=== PATIENT | male | born 1975 | race Caucasian/White ===

== ENCOUNTER 2023-02-01 12:30 | Outpatient (RCR) | payer OTHER, SELFPAY | END 2023-02-01 13:41 | disposition home or self-care (01) | PROVIDERS: PCP Internal Medicine; Visit Provider Internal Medicine | DX: M25.541 Pain in joints of right hand (principal); Z51.89 Encounter for other specified aftercare | CPT/HCPCS: 97035; 97140; 97165 ==

== ENCOUNTER 2023-02-28 10:55 | Outpatient (CLI) | payer OTHER, SELFPAY | END 2023-02-28 10:56 | disposition home or self-care (01) | LOC: RAD 10:56 | PROVIDERS: PCP Internal Medicine; Visit Provider Chiropractor | DX: R06.00 Dyspnea, unspecified (principal); I07.1 Rheumatic tricuspid insufficiency | CPT/HCPCS: 93306 ==

== ENCOUNTER 2023-11-18 09:58 | Outpatient (CLI) | payer OTHER, SELFPAY ==
--- OUTSIDE RECORDS SUMMARY | 2023-11-18 10:17 | XMS_ITS | Encounter Summary ---
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 This section includes the names of all active insurance providers for the patient. Insurance Provider Type of Coverage Plan Name Start of Policy Coverage End of Policy Coverage Group Number Member ID Insurance Provider's Telephone Number Policy Morgan's Name Patient's Relationship to Policy Morgan [employer] [place] POINT OF SERVICE FOREI GN SERVI CE BENE Mar 29, 2019 [id number] [phone] Jonh SANCHEZ PATIENT [employer] ([employer]) PRESCRIPT ION FOREI GN SERVI CE Mar 29, 2019 [id number] Jonh SANCHEZ PATIENT Selected Encounter This section includes the information on record at [place] for the Encounter. Date/Time Encounter Type Encounter Description Reason Provider Source Dec 24, 2022 02:30 PM PT EVAL LOW COMPLEX 20 MIN PHYSICAL THERAPY ICD-10-CM M54.50 Low back pain, unspecified RYER,MANI ER P IHE Encounter Template Text not used by [place] Assessments - Encounter Diagnoses This section includes the primary and secondary diagnoses documented for the Encounter. Date/Time Primary/Secondary Diagnosis Diagnosis Name Provider Source Dec 24, 2022 04:23 PM PRIMARY Low back pain, unspecified RYER,MANI ER P [facility] Plan of Treatment: Future Appointments (+ 6 months) and Future Tests (+/- 45 days) The Plan of Treatment section includes future care activities for the patient from all [facility] treatment[facility]. This section includes future appointments and future orders which are active, pending or scheduled. Future Appointments This section includes appointments that were scheduled to occur 6 months from the date of the Encounter, up to a maximum of 20 appointments. The data comes from all [facility]. Appointment Date/Time Appointment Type Appointme nt Facility Name Jan 04, 2023 08:30 AM AMBULATORY - NONE [facility] Jan 04, 2023 09:00 AM AMBULATORY - REHAB MEDICIN E [facility] Jan 04, 2023 11:15 AM AMBULATORY - NONE [facility] Jan 10, 2023 07:00 AM AMBULATORY - NONE [facility] Jan 11, 2023 09:00 AM AMBULATORY - REHAB MEDICIN E [facility] Jan 14, 2023 08:00 AM AMBULATORY - MEDICINE [facility] Feb 01, 2023 02:00 PM [facility] NONE [facility] Feb 05, 2023 08:45 AM AMBULATORY - SURGERY [facility] Feb 15, 2023 02:00 PM AMBULATORY - REHAB MEDICIN E [facility] Mar 01, 2023 09:30 AM AMBULATORY - REHAB MEDICIN E [facility] Mar 21, 2023 08:45 AM AMBULATORY - SURGERY [facility] Apr 01, 2023 01:00 PM AMBULATORY - MEDICINE [facility] Apr 08, 2023 10:30 AM AMBULATORY - REHAB MEDICIN [facility] May 17, 2023 03:00 PM AMBULATORY - REHAB MEDICIN E [facility] May 21, 2023 09:30 AM AMBULATORY - MEDICINE [facility] May 21, 2023 11:00 AM AMBULATORY - NONE [facility] Jun 04, 2023 11:00 AM AMBULATORY - SURGERY [facility] Active, Pending, and Scheduled Orders This section includes a listing of several types of active, pending, and scheduled orders, including clinic medications orders, diagnostic test orders, procedure orders and consult orders; where the start date of the order is 45 days before the date of the Encounter or 45 days after the date of theEncounter. The data comes from all [facility]. Test Date/Time Test Type Test Details Facility Name Dec 24, 2022 12:00 AM Laboratory - Chemistry Order COVID-19 SCREENING PANEL (CEPHEID) NASOPHARYNGEAL SWAB Nasopharyngeal SP ONCE [facility] Lab Results: +/- 30 days of the encounter This section includes the Chemistry and Hematology Lab Results on record with [place] for the patient. Radiology Reports and Pathology Reports are provided separately, in subsequent sections. Lab Results This section contains the Chemistry/Hematology Results that were resulted 30 days before or 30 daysafter the date of the Encounter. Date/Time Source Result Type Result - Unit Interpretation Reference Range Comment Jan 04, 2023 01:44 PM [facility] OCCULT BLOOD FIT X1 SCREEN Specimen Type: FECES No comment entered. Ordering Provider: ARISTIDES TRAN Report Released Date/Time: Dec 24, 2022 09:55 AM Reporting Lab: [facility] [phone] Performing Lab: [facility] [id number] OCCULT BLOOD (FIT) #1 OF 1 Negative Negative Dec 24, 2022 11:30 AM [facility] URINALYSIS Specimen Type: URINE No comment entered. Ordering Provider: ARISTIDES TRAN Report Released Date/Time: Dec 24, 2022 09:18 AM Reporting Lab: [facility] [id number] Performing Lab: [facility] [phone] URINE COLOR LIGHT-YELLOW SPECIFIC GRAVITY 1.019 1.003-1.03 5 URINE BILIRUBIN NEGATIVE NEGATIVE URINE KETONES NEGATIVE NEGATIVE URINE GLUCOSE NEGATIVE mg/dL S ee_Commen t URINE PROTEIN NEGATIVE mg/dL S ee_Commen t URINE PH 5.5 5.0-8.0 URINE WBC/HPF 1 /[HPF] 0-7 URINE BACTERIA NONE SEEN URINE RBC/HPF 1 /[HPF] 0-3 APPEARANCE CLEAR SQUAMOUS EPITHELIAL NONE SEEN /[HPF] URINE BLOOD 1+ NEGATIVE URINE NITRITE NEGATIVE NEGATIVE LEUKOCYTE ESTERASE NEGATIVE NEGATIVE Dec 24, 2022 11:30 AM [facility] HEAVY METAL PANEL, RANDOM URINE Specimen Type: URINE Comment: Results are below reportable range for this analyte, which is 10 mcg/L. Reference Range: Nonexposed Adult: < or = 35 mcg/g creatinine Biological Exposure Index (end of shift/work week): < or = 50 mcg/g creatinine This test was developed and its analytical performance characteristics have been determined by [facility] [place] [place]. It has not been cleared or approved by the U.S. Food and Drug Administration. This assay has been validated pursuant to the CLIA regulations and is used for clinical purposes. Results are below reportable range for this analyte, which is 10 mcg/L. Reference Range: Nonexposed Adult: <10 mcg/g creatinine This test was developed and its analytical performance characteristics have been determined by [facility] [place] [place]. It has not been cleared or approved by the U.S. Food and Drug Administration. This assay has been validated pursuant to the CLIA regulations and is used for clinical purposes. Results are below reportable range for this analyte, which is 4 mcg/L. Reference Range: Nonexposed Adults: < or = 4 mcg/g creatinine Biological Exposure Index (preshift): < or = 35 mcg/g creatinine This test was developed and its analytical performance characteristics have been determined by [facility] [place], [place]. It has not been cleared or approved by the U.S. Food and Drug Administration. This assay has been validated pursuant to the CLIA regulations and is used for clinical purposes. Test Performed by [facility], [facility], [address] [place] [address] Manuel Dacosta M.D., Ph.D., Director of Laboratories , CLIA [id number] Ordering Provider: ARISTIDES TRAN Report Released Date/Time: Dec 24, 2022 10:09 AM Reporting Lab: [facility] [phone] Performing Lab: [address] .CREAT,URINE 121 mg/dL 20-320 .ARSENIC, UR RAN None Detected .LEAD, UR RAN None Detected .MERCURY, UR RAN None Detected Dec 24, 2022 11:00 AM [facility] COMPREHENSIVE METABOLIC PANEL+MG Specimen Type: PLASMA No comment entered. Ordering Provider: ARISTIDES TRAN Report Released Date/Time: Dec 24, 2022 09:18 AM Reporting Lab: [facility] [phone] Performing Lab: [facility] [phone] CREATININE 1.0 mg/dL 0.7-1.2 UREA NITROGEN 16 mg/dL 8-26 GLUCOSE 93 mg/dL 70-100 SODIUM 141 mmol/L 136-145 POTASSIUM 4.5 mmol/L 3.5-5.1 CHLORIDE 107 mmol/L 98-107 CO2 29 mmol/L 22-29 CALCIUM 9.5 mg/dL 8.4-10.2 PROTEIN,TOTAL 7.7 g/dL 6.0-8.3 ALBUMIN 4.3 g/dL 3.5-5.2 BILIRUBIN, TOTAL 1.0 mg/dL 0.2-1.2 MAGNESIUM 2.2 mg/dL 1.6-2.6 ANION GAP 5 mmol/L 5-15 ALKALINE PHOSPHATASE 68 U/L 40-150 ALT/SGPT 35 U/L <55 AST/SGOT 23 U/L <34 .CREAT EGFR(CKD-EPI) >90 >60 Dec 24, 2022 11:00 AM [facility] CBC & DIFF Specimen Type: BLOOD Comment: Automated Differential Performed Ordering Provider: ARISTIDES TRAN Report Released Date/Time: Dec 24, 2022 09:18 AM Reporting Lab: [facility] [phone] Performing Lab: [facility] [phone] WBC 6.39 10*3/uL 4.0-11.0 RBC 5.21 10*6/uL 4.6-6.2 HGB 17.1 g/dL 13.5-17.9 HCT 48.6 41-54 MCV 93.3 fL 80-100 MCH 32.8 pg 27-33 MCHC 35.2 g/dL 32.0-37.5 PLT 241 10*3/uL 150-400 MPV 10.4 fL 7.4-10.4 NEUT 59.0 40.0-80.0 LYMPHS 31.8 15.0-45.0 MONO 6.4 2.0-12.0 EOSINO 1.9 0.0-6.0 BASO 0.6 0.0-2.0 RDW 12.2 11.5-14.5 ABS LYMPH 2.03 10*3/uL 1.0-4.0 ABS MONO 0.41 10*3/uL 0.1-1.0 ABS NEUT 3.77 10*3/uL 2.0-7.7 ABS EOS 0.12 10*3/uL 0-0.5 ABS BASO 0.04 10*3/uL 0-0.2 IG(META,MYELO, PRO) 0.3 ABS IMMATURE GRAN 0.02 10*3/uL 0-0.1 Dec 24, 2022 11:00 AM [facility] TSH W/REFLEX TO FREE T4 Specimen Type: PLASMA No comment entered. Ordering Provider: ARISTIDES TRAN Report Released Date/Time: Dec 24, 2022 09:18 AM Reporting Lab: [facility] [phone] Performing Lab: [place] [phone] TSH 1.45 u[IU]/mL 0.35-4.94 Dec 24, 2022 11:00 AM [facility] LIPID PANEL,NON-FASTING Specimen Type: PLASMA No comment entered. Ordering Provider: ARISTIDES TRAN Report Released Date/Time: Dec 24, 2022 09:18 AM Reporting Lab: [facility] [phone] Performing Lab: [facility] [phone] CHOLESTEROL 140 mg/dL <199 .HDL 36 mg/dL L >40 LDL CALCULATION 82 mg/dL <99 VLDL CALCULATION 22 mg/dL <29 NON HDL CHOLESTEROL 104 mg/dL <129 TRIG(NON FASTING) 112 mg/dL <149 Dec 24, 2022 11:00 AM [facility] HEMOGLOBIN A1C Specimen Type: BLOOD Comment: Values obtained from A1C measurements can vary. For typical A1C assays, a reported value of 7.0 could actually be between 6.7 and 7.3 if measured by a reference method. A reported value of 9.0 could actually be between 8.7 and 9.3. Ref: http://www.[email or web address] org/CAPdata.asp Ordering Provider: ARISTIDES TRAN Report Released Date/Time: Dec 24, 2022 09:18 AM Reporting Lab: [facility] [phone] Performing Lab: [facility] [phone] HEMOGLOBIN A1C 5.0 4.0-6.0 Dec 24, 2022 11:00 AM [facility] PSA Specimen Type: SERUM No comment entered. Ordering Provider: ARISTIDES TRAN Report Released Date/Time: Dec 24, 2022 09:29 AM Reporting Lab: [facility] [id number] Performing Lab: [facility] [phone] PSA 4.85 ng/mL H <4.00 Dec 24, 2022 11:00 AM [facility] ANTI-HEP C(EIA) Specimen Type: SERUM No comment entered. Ordering Provider: ARISTIDES TRAN Report Released Date/Time: Dec 24, 2022 09:55 AM Reporting Lab: [facility] [id number] Performing Lab: [facility] [phone] ANTI-HEP C(EIA) NEGATIVE NEGATIVE Vital Signs: All taken on the encounter date This section contains inpatient and outpatient Vital Signs collected on the date of the Encounter. Date/Time Temperature Pulse Blood Pressure Respiratory Rate SP02 Pain Height Weight Body Mass Index Source Dec 24, 2022 09:09 AM 146/92 mm[Hg] [facility] Dec 24, 2022 08:54 AM 97.5 F 81 /min 142/91 mm[Hg] 16 /min 99 % 2 73 in 266.9 lb 35 [facility] Social History: Smoking Status (Most current) and Tobacco Use (All prior to encounter date) This section includes the most current, and the historical, smoking and tobacco- related health factors from the [place] facility where the Encounter took place. Current Smoking Status This section includes the most current smoking, or tobacco-related health factor, from the [place] facility where the Encounter took place. Date/Time Current Smoking Status Comment Facil ity Dec 24, 2022 09:00 AM [facility]-TOBACCO FORMER USER [facility] Tobacco Use History This section includes a history of the smoking, or tobacco-related health factors, that were collected on or before the date of the Encounter. The data comes from the [place] facility where the Encounter took place. Date/Time Smoking Status/Tobacco Use Comment F acility Dec 24, 2022 09:00 AM [place]-TOBACCO QUIT 15 YRS OR MORE [facility] Radiology Reports: +/- 30 days of the encounter Radiology Reports For cases when an order for radiology services may have been completed prior to the date of the Encounter, the report list includes the Radiology Reports that were completed up to 30 days before dateof the Encounter. For cases when an order for radiology services may have been completed after the date of the Encounter, the report list also includes the Radiology Reports that were completed up to30 days after date of the Encounter. The data comes from all [place] treatment facilities. Date/Time Radiology Report Provider Source Jan 04, 2023 11:[address] (C) CHEST (P): CARINA SANCHEZ [id number] -1975 M Exm Date: JAN 04, 2023@11:10 Req Phys: MARCGUILLERMOJONATHAN Bray Loc: [facility] PACT INDIGO PD WH 4D (Req' Img Loc: CT IMAGING Service: Unknown (Case [id number] COMPLETE) CT (C) CHEST W/O CONTRAST (CT Detailed) CPT:89909 Reason for Study: Post Deployment Dyspnea on exertion/Multiple Airborne Hazard Exp Clinical History: HRCT- Post Deployment Dyspnea on exertion/Multiple Airborne Hazard Exposures IS NOT under investigation for COVID-19 or is COVID-19 negative Defer to radiologist for final CT protocol. Responsible provider name and phone number to notify for critical findings if other than user placing the order and pager listed below: User placing orders pager: [phone] LAST 3: No data available for: CREATININE .CREAT EGFR(CKD-EPI) ESTIMATED GFR(eGFR) Allergies: ([place] only) Patient has answered NKA Report Status: Verified Date Reported: JAN 04, 2023 Date Verified: JAN 04, 2023 Medical Office Assistant E-Sig:/ES/PERFECTO REDDING MD Report: CT chest without contrast (high resolution) 01/04/2023 History: Post deployment dyspnea on exertion/multiple airborne hazard exposures. Comparison: None Technique: CT of the chest without contrast including supine inspiratory, supine expiratory, and prone inspiratory acquisitions per high resolution interstitial lung disease protocol. Axial and coronal reconstructions were obtained and reviewed. Dose: Total DLP 676 mGy*cm Findings: Bilateral radha-fissural nodules, largest along the right minor fissure measuring 4 mm (series 4, image 160), compatible with benign pulmonary lymph nodes. 2 mm solid nodule left lower lobe adjacent to the left hemidiaphragm with linear extension to the pleura, compatible with a benign intrapulmonary lymph node. No further follow-up is indicated of intrapulmonary lymph nodes. No suspicious pulmonary nodule. Lungs are otherwise clear. No findings for interstitial lung disease. No mosaic attenuation. No bronchiectasis, bronchial wall thickening or mucous plugging. Minimal patchy air trapping present bilaterally on expiratory phase acquisition. Thyroid is unremarkable. Normal heart size. No pericardial or pleural effusion. No suspicious lymphadenopathy in the chest. Hepatic steatosis. Slight degenerative changes in the spine. No suspicious bone lesion. Minimal gynecomastia, left greater than right. Impression: 1. Minimal bilateral air trapping on expiratory phase acquisition as can be seen with small airways disease/asthma. No other pulmonary parenchymal abnormality to explain the patient's symptoms. 2. Hepatic steatosis. Primary Interpreting Staff: PERFECTO REDDING MD, STAFF RADIOLOGIST (Medical Office Assistant) /NRPERFECTO SINGLETARY [facility] Jan 04, 2023 11:[address] SINUSES (P): CARINA SANCHEZ [id number] -1975 M Exm Date: JAN 04, 2023@11:09 Req Phys: ARISTIDES TRAN Loc: [facility] PACT INDIGO PD WH 4D (Req' Img Loc: CT IMAGING Service: Unknown (Case [id number] COMPLETE) CT MAXILLOFACIAL W/O CONTRAST (CT Detailed) CPT:04460 Reason for Study: Chronic Nasal Obstruction Clinical History: Post Deployment Chronic Nasal Obstruction/Multiple Airborne Hazard Exposures [place] IS NOT under investigation for COVID-19 or is COVID-19 negative Defer to radiologist for final CT protocol. Responsible provider name and phone number to notify for critical findings if other than user placing the order and pager listed below: User placing orders pager: [phone] LAST 3: No data available for: CREATININE .CREAT EGFR(CKD-EPI) ESTIMATED GFR(eGFR) Allergies: ([place] only) Patient has answered NKA Report Status: Verified Date Reported: JAN 04, 2023 Date Verified: JAN 04, 2023 Medical Office Assistant E-Sig:/ES/DIEGO BUSBY MD Report: CT SINUSES WITHOUT CONTRAST 01/04/2023 11:09 AM INDICATION: Chronic nasal obstruction. Airborne hazards. TECHNIQUE: Thin slice axial acquisition with sagittal and coronal reformats. CONTRAST: None. COMPARISON: None. DOSE: DLP 181 mGy*cm FINDINGS: FRONTAL: Hypoplastic. Clear. ETHMOID: Clear. SPHENOID: Clear. MAXILLARY: Clear. OMU'S: Clear. NASAL CAVITY: Septum is essentially midline. No nasal cavity mass lesion. OTHER: Mastoid air cells are clear. No significant ancillary finding. Impression: 1. Paranasal sinuses are clear on this study. Primary Interpreting Staff: DIEGO BUSBY MD, RADIOLOGIST (Medical Office Assistant) /ILYA RESENDIZ [facility] Jan 04, 2023 08:28 AM HAND RIGHT 3 VIEWS OR MORE: CARINA SANCHEZ Sonu [id number] -1975 M Exm Date: JAN 04, 2023@08:28 Req Phys: ARISTIDES TRAN A Pat Loc: [facility] PACT INDIGO PD WH 4D (Req' Img Loc: MAIN X-RAY Service: Unknown (Case [id number] COMPLETE) HAND RIGHT 3 VIEWS OR MORE (RAD Detailed) CPT:41945 Proc Modifiers : RIGHT Reason for Study: Right hand 3rd finger pain/trauma Clinical History: IS NOT under investigation for COVID-19 or is COVID-19 negative Right hand 3rd finger pain/trauma Responsible provider name and phone number to notify for critical findings if other than user placing the order and pager listed below: User placing orders pager: [phone] LAST CREATININE 1.0 (12/24/22) Report Status: Verified Date Reported: JAN 04, 2023 Date Verified: JAN 04, 2023 Medical Office Assistant E-Sig:/ES/JUAN PIERRE MD Report: PROCEDURE: HAND RIGHT 3 VIEWS OR MORE INDICATION: Trauma. COMPARISON: None. FINDINGS: 3 views of the right hand demonstrate normal mineralization and alignment. No fracture or dislocation. No suspicious bony sclerosis or periosteal reaction. No radiopaque foreign body. Impression: No acute osseous abnormality. Primary Interpreting Staff: JUAN PIERRE MD, STAFF RADIOLOGIST (Medical Office Assistant) /[facility] JUAN PIERRE [facility] Dec 24, 2022 10:46 AM CHEST 2 VIEWS PA AND LAT: DANIELCARINA Ascencio [id number] -1975 M Exm Date: DEC 24, 2022@10:46 Req Phys: ARISTIDES TRAN Pat Loc: [facility] PACT INDIGO PD WH 4D (Req' Img Loc: MAIN X-RAY Service: Unknown (Case [id number] COMPLETE) CHEST 2 VIEWS PA AND LAT (RAD Detailed) CPT:47783 Reason for Study: Post Deployment Dyspnea on exertion/Multiple Airborne Hazard Exp Clinical History: IS NOT under investigation for COVID-19 or is COVID-19 negative Post Deployment Dyspnea on exertion/Multiple Airborne Hazard Exposures Responsible provider name and phone number to notify for critical findings if other than user placing the order and pager listed below: User placing orders pager: [phone] LAST CREATININE____ Report Status: Verified Date Reported: DEC 24, 2022 Date Verified: DEC 24, 2022 Medical Office Assistant E-Sig:/WILLIAM/JUAN PIERRE MD Report: CHEST, 2 VIEW INDICATION: Dyspnea on exertion. COMPARISON: None. FINDINGS: PA and lateral views of the chest demonstrate adequate inflation of the lungs. No focal consolidation, pneumothorax or effusion. Cardiomediastinal silhouette is within normal limits. There are no acute osseous findings. Impression: No acute cardiopulmonary findings. Primary Interpreting Staff: JUAN PIERRE MD, STAFF RADIOLOGIST (Medical Office Assistant) /JUAN CANTU [facility] Encounter Notes: All associated encounter notes This section contains the clinical notes associated to the Encounter. Date/Time Encounter Note(s) Provider Source Dec 27, 2022 09:05 AM ADDENDUM: LOCAL TITLE: Addendum STANDARD TITLE: ADDENDUM DATE OF NOTE: DEC 27, 2022@09:05:37 ENTRY DATE: DEC 27, 2022@09:05:37 AUTHOR: DARRELL NETTLES EXP COSIGNER: URGENCY: STATUS: COMPLETED Director Of Physician Practices called and spoke to vet. He would like to get xray done 01/04 at 0830, will tell [facility]. /william/ DARRELL NETTLES RN RN, BSN Signed: 12/27/2022 09:05 Receipt Acknowledged By: 12/27/2022 09:37 /key LOBO ARMATURE WINDER REPAIR === --- Original Document --- 12/24/22 PT-EVALUATION NOTE: PT tx: 20 minutes evaluation, 10 minutes manual therapy, 10 minutes therapeutic exercise, 5 minutes self-care PT dx: Low back and knee pain Evaluation Date: Dec # of VISITS: 1 # of CX/NS: 0 Preferred name: Carina SUBJECTIVE: Relevant PMH/personal factors impacting rehab: Multiple environmental exposures, migraines, hypertension. Chief Concern: Pt is a 47yo MALE who presents to PT for low back pain, knee pain. Lots of stairs with recent move to [place]. R knee has become painful. Low back is just generally sore and achy. 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 Low back pain tends to remain around the belt line area. Primarily at the right knee which is painful and is over the lateral patella. Pain: Location/Description: Right lateral patella, beltline Low back Intensity: 2-3/10 low back, can spike up somewhat with right knee depending on activity Aggravating Factors: For right knee kneeling, stairs. For low back lifting or twisting activities Relieving Factors: Rest, changing positions Previous intervention: Distant L partial meniscectomy. Chiropractic which was helpful. Social History/Health Habits: Work is more mainly sitting. 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 Red Flags: No personal history of cancer. Denies any UE or LE progressive weakness, unexplained weight loss, loss of bowel/bladder control, fevers, chills, infections. [place] Screening due: No Patient's Goal: Improve low back and knee. _ RELEVANT IMAGING: None _ OBJECTIVE: Verbal permission obtained before all palpation OBSERVATION: Pleasant demeanor. VITALS: Elevated but acceptable at earlier appointment. RANGE OF MOTION: Standing Lumbar AROM: Flexion: Reaches to proximal rosario Extension: 50% of expected Sidebend: 25% of expected left, 75% of expected right Rotation: 25% of expected left, 75% of expected right (WNL B s/p tx) Quality of Motion: Hypomobile PALPATION: No superficial lumbar tenderness to palpation. Does have some lateral patellar tenderness to palpation SEGMENTAL MOBILITY: Diffuse hypomobility, most focal on right side SPECIAL TESTS: Neurodynamics Straight Leg Raise: Negative Hip screen ROM: Grossly WNL bilateral knees and hips SHANT: Negative bilaterally Desire's test: Negative Patellar grind test: Positive right Squat: Normal form but increased pain right side 6 inch step up: Normal form but increased pain right side _ PT INTERVENTIONS: risks/benefits reviewed and verbal consent obtained for interventions Manual Therapy: -Left lumbar rotation mobilization progressing through grades with manipulation then performed to left and right sides, cavitations noted *Verbal consent given to all manual therapy and manipulation performed. Ther ex: Access Code: [email or web address] URL: [email or web address] Date: 12/24/2022 Prepared by: Diego Workman Exercises - Supine Double Knee to Chest - 3 x daily - 7 x weekly - 2 sets - 10-20 reps - 3 hold - Supine Lower Trunk Rotation - 3 x daily - 7 x weekly - 2 sets - 12 reps - 3 hold - Seated Child's Pose with Table - 3 x daily - 7 x weekly - 3 sets - 12 reps - 3-5 hold Education on HEP (sets, reps, frequency and appropriate response/progression for exercise) Self Care: - Education on joint protection strategies, activity selection. - Education on PT diagnosis, prognosis, expectations of treatment. Response to Treatment: Excellent response to lumbar AROM, reported pain _ GOALS: 1. Pt will be I in HEP for self-management of low back and knee pain in 8-10 weeks 2. Pt will improve PROMIS 6b score by 5 points in order to demonstrate a meaningful reduction in LBP and associated disability in 8 weeks. 3. Patient will demonstrate a single-leg squat to 60 degrees at the knee without apparent movement pattern or increase in symptoms in order to improve his ability to negotiate stairs more easily in 8 weeks. 4. Patient will demonstrate 100% of age expected lumbar rotation in order to improve his ability to enter and exit his vehicle more easily in 8 weeks. _ ASSESSMENT: 47-year-old male presents with essentially 2 separate concerns: Chronic low back pain with mobility deficits. No neurologic or concerning features. Appears to have primarily joint mobility restrictions. Anticipate excellent prognosis with progressive manual therapy/manipulation. Second concern of chronic anterolateral right knee pain. Strong suspicion for patellofemoral pain, especially considering positive grind test. Suspect some compensatory behaviors related to chronic left knee pain/stiffness, hamstring restrictions on that side. Excellent response to treatment primarily focused today on lower back with significant improvement to pain and range of motion. o FUNCTIONAL IMPAIRMENTS: Joint mobility, myofascial restrictions, motor control, MM strength o ACTIVITY LIMITATIONS: Bending, lifting, twisting, stairs o PARTICIPATION RESTRICTIONS: ADLs, community/home mobility REHAB POTENTIAL: Excellent CLINICAL PRESENTATION: stable PLAN: Continue every 1 to 2 weeks x 3 visits and then reassess plan of care. - If still ongoing low back pain could consider long axis manipulation in addition to rotational -Trial taping for right knee -Initiate strengthening around right knee such as four-way hip, hamstring stretching -Present note will serve as d/c note if vet does not present for follow-up within 8 wks Patient Education on Treatment Plan: PT role, POC, rehab expectations. Patient indicated readiness to learn, verbalizes understanding, agreement and satisfaction with the treatment plan. Denies further questions. /william/ DIEGO WORKMAN Physical Therapist Signed: 12/24/2022 16:35 12/25/2022 ADDENDUM STATUS: COMPLETED TERESA: 9/50, 18% Baseline PROMIS Pain Interference 6b PROMIS Pain Interference - short form 6b In the past 7 days... How much did pain interfere with your enjoyment of life? A little bit (2) How much did pain interfere with your ability to concentrate? A little bit (2) How much did pain interfere with your day to day activities? A little bit (2) How much did pain interfere with your enjoyment of recreational activities? A little bit (2) How much did pain interfere with doing your tasks away from home (e.g., getting groceries, running errands)? A little bit (2) How often did pain keep you from socializing with others? Never (1) Total RAW Score: 11 RAW SCORE CONVERSION TO T-SCORE: T-score value indicates how score relates to normative samples (a standardized score with a mean of 50 and a standard deviation (SD)of 10). T-Scores >=60 indicate patient is outside the normal range, being 1+ SD worse than average. RAW T-SCORE RAW T-SCORE 6 41 19 62.7 7 48.5 20 63.6 8 50.8 21 64.5 9 52.5 22 65.5 10 53.8 23 66.4 11 55 24 67.4 12 56.1 25 68.5 13 57.1 26 69.6 14 58.1 27 70.9 15 59.1 28 72.4 16 60 29 74.4 17 60.9 30 78.3 18 61.8 T-Score: 55 /william/ DIEGO WORKMAN Physical Therapist Signed: 12/26/2022 07:39 12/26/2022 ADDENDUM STATUS: COMPLETED Near end of session pt mentions 3rd ray PIP pain after spraining finger, and that it remains swollen several weeks after injury. Cosigning PCP for visibility in case an OT/hand therapy referral might be warranted. /william/ DIEGO WORKMAN Physical Therapist Signed: 12/26/2022 07:41 Receipt Acknowledged By: 12/26/2022 15:16 /william/ ARISTIDES TRAN MD [facility] 12/26/2022 ADDENDUM STATUS: COMPLETED 1. I have ordered a Right hand Xray 2. Occupational Therapy was consulted. /william/ ARISTIDES TRAN MD [facility] Signed: 12/26/2022 15:21 Receipt Acknowledged By: 12/27/2022 09:05 /william/ DARRELL NETTLES RN RN, BSN 12/26/2022 15:36 /william/ DIEGO WORKMAN Physical Therapist DARRELL NETTLES [facility] Dec 26, 2022 03:20 PM ADDENDUM: LOCAL TITLE: Addendum STANDARD TITLE: ADDENDUM DATE OF NOTE: DEC 26, 2022@15:20:35 ENTRY DATE: DEC 26, 2022@15:20:36 AUTHOR: ARISTIDES TRAN COSIGNER: URGENCY: STATUS: COMPLETED 1. I have ordered a Right hand Xray 2. Occupational Therapy was consulted. /es/ ARISTIDES TRAN MD [facility] Signed: 12/26/2022 15:21 Receipt Acknowledged By: 12/27/2022 09:05 /william/ DARRELL NETTLES RN RN, BSN 12/26/2022 15:36 /es/ DIEGO WORKMAN Physical Therapist === --- Original Document --- 12/24/22 PT-EVALUATION NOTE: PT tx: 20 minutes evaluation, 10 minutes manual therapy, 10 minutes therapeutic exercise, 5 minutes self-care PT dx: Low back and knee pain Evaluation Date: Dec # of VISITS: 1 # of CX/NS: 0 Preferred name: Carina SUBJECTIVE: Relevant PMH/personal factors impacting rehab: Multiple environmental exposures, migraines, hypertension. Chief Concern: Pt is a 47yo MALE who presents to PT for low back pain, knee pain. Lots of stairs with recent move to [place]. R knee has become painful. Low back is just generally sore and achy. 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 Low back pain tends to remain around the belt line area. Primarily at the right knee which is painful and is over the lateral patella. Pain: Location/Description: Right lateral patella, beltline Low back Intensity: 2-3/10 low back, can spike up somewhat with right knee depending on activity Aggravating Factors: For right knee kneeling, stairs. For low back lifting or twisting activities Relieving Factors: Rest, changing positions Previous intervention: Distant L partial meniscectomy. Chiropractic which was helpful. Social History/Health Habits: Work is more mainly sitting. 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 Red Flags: No personal history of cancer. Denies any UE or LE progressive weakness, unexplained weight loss, loss of bowel/bladder control, fevers, chills, infections. [place] Screening due: No Patient's Goal: Improve low back and knee. _ RELEVANT IMAGING: None _ OBJECTIVE: Verbal permission obtained before all palpation OBSERVATION: Pleasant demeanor. VITALS: Elevated but acceptable at earlier appointment. RANGE OF MOTION: Standing Lumbar AROM: Flexion: Reaches to proximal rosario Extension: 50% of expected Sidebend: 25% of expected left, 75% of expected right Rotation: 25% of expected left, 75% of expected right (WNL B s/p tx) Quality of Motion: Hypomobile PALPATION: No superficial lumbar tenderness to palpation. Does have some lateral patellar tenderness to palpation SEGMENTAL MOBILITY: Diffuse hypomobility, most focal on right side SPECIAL TESTS: Neurodynamics Straight Leg Raise: Negative Hip screen ROM: Grossly WNL bilateral knees and hips SHANT: Negative bilaterally Desire's test: Negative Patellar grind test: Positive right Squat: Normal form but increased pain right side 6 inch step up: Normal form but increased pain right side _ PT INTERVENTIONS: risks/benefits reviewed and verbal consent obtained for interventions Manual Therapy: -Left lumbar rotation mobilization progressing through grades with manipulation then performed to left and right sides, cavitations noted *Verbal consent given to all manual therapy and manipulation performed. Ther ex: Access Code: [email or web address] URL: [email or web address] Date: 12/24/2022 Prepared by: Diego Workman Exercises - Supine Double Knee to Chest - 3 x daily - 7 x weekly - 2 sets - 10-20 reps - 3 hold - Supine Lower Trunk Rotation - 3 x daily - 7 x weekly - 2 sets - 12 reps - 3 hold - Seated Child's Pose with Table - 3 x daily - 7 x weekly - 3 sets - 12 reps - 3-5 hold Education on HEP (sets, reps, frequency and appropriate response/progression for exercise) Self Care: - Education on joint protection strategies, activity selection. - Education on PT diagnosis, prognosis, expectations of treatment. Response to Treatment: Excellent response to lumbar AROM, reported pain _ GOALS: 1. Pt will be I in HEP for self-management of low back and knee pain in 8-10 weeks 2. Pt will improve PROMIS 6b score by 5 points in order to demonstrate a meaningful reduction in LBP and associated disability in 8 weeks. 3. Patient will demonstrate a single-leg squat to 60 degrees at the knee without apparent movement pattern or increase in symptoms in order to improve his ability to negotiate stairs more easily in 8 weeks. 4. Patient will demonstrate 100% of age expected lumbar rotation in order to improve his ability to enter and exit his vehicle more easily in 8 weeks. _ ASSESSMENT: 47-year-old male presents with essentially 2 separate concerns: Chronic low back pain with mobility deficits. No neurologic or concerning features. Appears to have primarily joint mobility restrictions. Anticipate excellent prognosis with progressive manual therapy/manipulation. Second concern of chronic anterolateral right knee pain. Strong suspicion for patellofemoral pain, especially considering positive grind test. Suspect some compensatory behaviors related to chronic left knee pain/stiffness, hamstring restrictions on that side. Excellent response to treatment primarily focused today on lower back with significant improvement to pain and range of motion. o FUNCTIONAL IMPAIRMENTS: Joint mobility, myofascial restrictions, motor control, MM strength o ACTIVITY LIMITATIONS: Bending, lifting, twisting, stairs o PARTICIPATION RESTRICTIONS: ADLs, community/home mobility REHAB POTENTIAL: Excellent CLINICAL PRESENTATION: stable PLAN: Continue every 1 to 2 weeks x 3 visits and then reassess plan of care. - If still ongoing low back pain could consider long axis manipulation in addition to rotational -Trial taping for right knee -Initiate strengthening around right knee such as four-way hip, hamstring stretching -Present note will serve as d/c note if vet does not present for follow-up within 8 wks Patient Education on Treatment Plan: PT role, POC, rehab expectations. Patient indicated readiness to learn, verbalizes understanding, agreement and satisfaction with the treatment plan. Denies further questions. /william/ DIEGO WORKMAN Physical Therapist Signed: 12/24/2022 16:35 12/25/2022 ADDENDUM STATUS: COMPLETED TERESA: , 18% Baseline PROMIS Pain Interference 6b PROMIS Pain Interference - short form 6b In the past 7 days... How much did pain interfere with your enjoyment of life? A little bit (2) How much did pain interfere with your ability to concentrate? A little bit (2) How much did pain interfere with your day to day activities? A little bit (2) How much did pain interfere with your enjoyment of recreational activities? A little bit (2) How much did pain interfere with doing your tasks away from home (e.g., getting groceries, running errands)? A little bit (2) How often did pain keep you from socializing with others? Never (1) Total RAW Score: 11 RAW SCORE CONVERSION TO T-SCORE: T-score value indicates how score relates to normative samples (a standardized score with a mean of 50 and a standard deviation (SD)of 10). T-Scores >=60 indicate patient is outside the normal range, being 1+ SD worse than average. RAW T-SCORE RAW T-SCORE 6 41 19 62.7 7 48.5 20 63.6 8 50.8 21 64.5 9 52.5 22 65.5 10 53.8 23 66.4 11 55 24 67.4 12 56.1 25 68.5 13 57.1 26 69.6 14 58.1 27 70.9 15 59.1 28 72.4 16 60 29 74.4 17 60.9 30 78.3 18 61.8 T-Score: 55 /es/ DIEGO WORKMAN Physical Therapist Signed: 12/26/2022 07:39 12/26/2022 ADDENDUM STATUS: COMPLETED Near end of session pt mentions 3rd ray PIP pain after spraining finger, and that it remains swollen several weeks after injury. Cosigning PCP for visibility in case an OT/hand therapy referral might be warranted. /key WORKMAN Physical Therapist Signed: 12/26/2022 07:41 Receipt Acknowledged By: 12/26/2022 15:16 /key TRAN MD [facility] 12/27/2022 ADDENDUM STATUS: UNSIGNED You may not VIEW this UNSIGNED Addendum. ARISTIDES TRAN [facility] Dec 26, 2022 07:39 AM ADDENDUM: LOCAL TITLE: Addendum STANDARD TITLE: ADDENDUM DATE OF NOTE: DEC 26, 2022@07:39:39 ENTRY DATE: DEC 26, 2022@07:39:40 AUTHOR: DIEGO WORKMAN EXP COSIGNER: URGENCY: STATUS: COMPLETED Near end of session pt mentions 3rd ray PIP pain after spraining finger, and that it remains swollen several weeks after injury. Cosigning PCP for visibility in case an OT/hand therapy referral might be warranted. /key WORKMAN Physical Therapist Signed: 12/26/2022 07:41 Receipt Acknowledged By: 12/26/2022 15:16 /key TRAN MD [facility] === --- Original Document --- 12/24/22 PT-EVALUATION NOTE: PT tx: 20 minutes evaluation, 10 minutes manual therapy, 10 minutes therapeutic exercise, 5 minutes self-care PT dx: Low back and knee pain Evaluation Date: Dec # of VISITS: 1 # of CX/NS: 0 Preferred name: Carina SUBJECTIVE: Relevant PMH/personal factors impacting rehab: Multiple environmental exposures, migraines, hypertension. Chief Concern: Pt is a 47yo MALE who presents to PT for low back pain, knee pain. Lots of stairs with recent move to [facility] knee has become painful. Low back is just generally sore and achy. 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 Low back pain tends to remain around the belt line area. Primarily at the right knee which is painful and is over the lateral patella. Pain: Location/Description: Right lateral patella, beltline Low back Intensity: 2-3/10 low back, can spike up somewhat with right knee depending on activity Aggravating Factors: For right knee kneeling, stairs. For low back lifting or twisting activities Relieving Factors: Rest, changing positions Previous intervention: Distant L partial meniscectomy. Chiropractic which was helpful. Social History/Health Habits: Work is more mainly sitting. 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 Red Flags: No personal history of cancer. Denies any UE or LE progressive weakness, unexplained weight loss, loss of bowel/bladder control, fevers, chills, infections. [place] Screening due: No Patient's Goal: Improve low back and knee. _ RELEVANT IMAGING: None _ OBJECTIVE: Verbal permission obtained before all palpation OBSERVATION: Pleasant demeanor. VITALS: Elevated but acceptable at earlier appointment. RANGE OF MOTION: Standing Lumbar AROM: Flexion: Reaches to proximal rosario Extension: 50% of expected Sidebend: 25% of expected left, 75% of expected right Rotation: 25% of expected left, 75% of expected right (WNL B s/p tx) Quality of Motion: Hypomobile PALPATION: No superficial lumbar tenderness to palpation. Does have some lateral patellar tenderness to palpation SEGMENTAL MOBILITY: Diffuse hypomobility, most focal on right side SPECIAL TESTS: Neurodynamics Straight Leg Raise: Negative Hip screen ROM: Grossly WNL bilateral knees and hips SHANT: Negative bilaterally Desire's test: Negative Patellar grind test: Positive right Squat: Normal form but increased pain right side 6 inch step up: Normal form but increased pain right side _ PT INTERVENTIONS: risks/benefits reviewed and verbal consent obtained for interventions Manual Therapy: -Left lumbar rotation mobilization progressing through grades with manipulation then performed to left and right sides, cavitations noted *Verbal consent given to all manual therapy and manipulation performed. Ther ex: Access Code: [email or web address] URL: [email or web address] Date: 12/24/2022 Prepared by: Diego Workman Exercises - Supine Double Knee to Chest - 3 x daily - 7 x weekly - 2 sets - 10-20 reps - 3 hold - Supine Lower Trunk Rotation - 3 x daily - 7 x weekly - 2 sets - 12 reps - 3 hold - Seated Child's Pose with Table - 3 x daily - 7 x weekly - 3 sets - 12 reps - 3-5 hold Education on HEP (sets, reps, frequency and appropriate response/progression for exercise) Self Care: - Education on joint protection strategies, activity selection. - Education on PT diagnosis, prognosis, expectations of treatment. Response to Treatment: Excellent response to lumbar AROM, reported pain _ GOALS: 1. Pt will be I in HEP for self-management of low back and knee pain in 8-10 weeks 2. Pt will improve PROMIS 6b score by 5 points in order to demonstrate a meaningful reduction in LBP and associated disability in 8 weeks. 3. Patient will demonstrate a single-leg squat to 60 degrees at the knee without apparent movement pattern or increase in symptoms in order to improve his ability to negotiate stairs more easily in 8 weeks. 4. Patient will demonstrate 100% of age expected lumbar rotation in order to improve his ability to enter and exit his vehicle more easily in 8 weeks. _ ASSESSMENT: 47-year-old male presents with essentially 2 separate concerns: Chronic low back pain with mobility deficits. No neurologic or concerning features. Appears to have primarily joint mobility restrictions. Anticipate excellent prognosis with progressive manual therapy/manipulation. Second concern of chronic anterolateral right knee pain. Strong suspicion for patellofemoral pain, especially considering positive grind test. Suspect some compensatory behaviors related to chronic left knee pain/stiffness, hamstring restrictions on that side. Excellent response to treatment primarily focused today on lower back with significant improvement to pain and range of motion. o FUNCTIONAL IMPAIRMENTS: Joint mobility, myofascial restrictions, motor control, MM strength o ACTIVITY LIMITATIONS: Bending, lifting, twisting, stairs o PARTICIPATION RESTRICTIONS: ADLs, community/home mobility REHAB POTENTIAL: Excellent CLINICAL PRESENTATION: stable PLAN: Continue every 1 to 2 weeks x 3 visits and then reassess plan of care. - If still ongoing low back pain could consider long axis manipulation in addition to rotational -Trial taping for right knee -Initiate strengthening around right knee such as four-way hip, hamstring stretching -Present note will serve as d/c note if vet does not present for follow-up within 8 wks Patient Education on Treatment Plan: PT role, POC, rehab expectations. Patient indicated readiness to learn, verbalizes understanding, agreement and satisfaction with the treatment plan. Denies further questions. /william/ DIEGO WORKMAN Physical Therapist Signed: 12/24/2022 16:35 12/25/2022 ADDENDUM STATUS: COMPLETED TERESA: , 18% Baseline PROMIS Pain Interference 6b PROMIS Pain Interference - short form 6b In the past 7 days... How much did pain interfere with your enjoyment of life? A little bit (2) How much did pain interfere with your ability to concentrate? A little bit (2) How much did pain interfere with your day to day activities? A little bit (2) How much did pain interfere with your enjoyment of recreational activities? A little bit (2) How much did pain interfere with doing your tasks away from home (e.g., getting groceries, running errands)? A little bit (2) How often did pain keep you from socializing with others? Never (1) Total RAW Score: 11 RAW SCORE CONVERSION TO T-SCORE: T-score value indicates how score relates to normative samples (a standardized score with a mean of 50 and a standard deviation (SD)of 10). T-Scores >=60 indicate patient is outside the normal range, being 1+ SD worse than average. RAW T-SCORE RAW T-SCORE 6 41 19 62.7 7 48.5 20 63.6 8 50.8 21 64.5 9 52.5 22 65.5 10 53.8 23 66.4 11 55 24 67.4 12 56.1 25 68.5 13 57.1 26 69.6 14 58.1 27 70.9 15 59.1 28 72.4 16 60 29 74.4 17 60.9 30 78.3 18 61.8 T-Score: 55 /es/ DIEGO WORKMAN Physical Therapist Signed: 12/26/2022 07:39 12/26/2022 ADDENDUM STATUS: COMPLETED 1. I have ordered a Right hand Xray 2. Occupational Therapy was consulted. /es/ ARISTIDES TRAN MD [facility] Signed: 12/26/2022 15:21 Receipt Acknowledged By: * AWAITING SIGNATURE * DARRELL NETTLES * AWAITING SIGNATURE * DIEGO WORKMAN CHRISTOPHER P [facility] Dec 24, 2022 11:57 AM PHYSICAL THERAPY I NITIAL EVALUATION NOTE: LOCAL TITLE: PT-EVALUATION NOTE STANDARD TITLE: PHYSICAL THERAPY INITIAL EVALUATION NOTE DATE OF NOTE: DEC 24, 2022@11:57 ENTRY DATE: DEC 24, 2022@11:57:18 AUTHOR: DIEGO WORKMAN EXP COSIGNER: URGENCY: STATUS: COMPLETED PT-EVALUATION NOTE Has ADDENDA PT tx: 20 minutes evaluation, 10 minutes manual therapy, 10 minutes therapeutic exercise, 5 minutes self-care PT dx: Low back and knee pain Evaluation Date: Dec # of VISITS: 1 # of CX/NS: 0 Preferred name: Carina SUBJECTIVE: Relevant PMH/personal factors impacting rehab: Multiple environmental exposures, migraines, hypertension. Chief Concern: Pt is a 47yo MALE who presents to PT for low back pain, knee pain. Lots of stairs with recent move to [facility] knee has become painful. Low back is just generally sore and achy. 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 Low back pain tends to remain around the belt line area. Primarily at the right knee which is painful and is over the lateral patella. Pain: Location/Description: Right lateral patella, beltline Low back Intensity: 2-3/10 low back, can spike up somewhat with right knee depending on activity Aggravating Factors: For right knee kneeling, stairs. For low back lifting or twisting activities Relieving Factors: Rest, changing positions Previous intervention: Distant L partial meniscectomy. Chiropractic which was helpful. Social History/Health Habits: Work is more mainly sitting. 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 Red Flags: No personal history of cancer. Denies any UE or LE progressive weakness, unexplained weight loss, loss of bowel/bladder control, fevers, chills, infections. [place] Screening due: No Patient's Goal: Improve low back and knee. _ RELEVANT IMAGING: None _ OBJECTIVE: Verbal permission obtained before all palpation OBSERVATION: Pleasant demeanor. VITALS: Elevated but acceptable at earlier appointment. RANGE OF MOTION: Standing Lumbar AROM: Flexion: Reaches to proximal rosario Extension: 50% of expected Sidebend: 25% of expected left, 75% of expected right Rotation: 25% of expected left, 75% of expected right (WNL B s/p tx) Quality of Motion: Hypomobile PALPATION: No superficial lumbar tenderness to palpation. Does have some lateral patellar tenderness to palpation SEGMENTAL MOBILITY: Diffuse hypomobility, most focal on right side SPECIAL TESTS: Neurodynamics Straight Leg Raise: Negative Hip screen ROM: Grossly WNL bilateral knees and hips SHANT: Negative bilaterally Desire's test: Negative Patellar grind test: Positive right Squat: Normal form but increased pain right side 6 inch step up: Normal form but increased pain right side _ PT INTERVENTIONS: risks/benefits reviewed and verbal consent obtained for interventions Manual Therapy: -Left lumbar rotation mobilization progressing through grades with manipulation then performed to left and right sides, cavitations noted *Verbal consent given to all manual therapy and manipulation performed. Ther ex: Access Code: [email or web address] URL: [email or web address] Date: 12/24/2022 Prepared by: Diego Workman Exercises - Supine Double Knee to Chest - 3 x daily - 7 x weekly - 2 sets - 10-20 reps - 3 hold - Supine Lower Trunk Rotation - 3 x daily - 7 x weekly - 2 sets - 12 reps - 3 hold - Seated Child's Pose with Table - 3 x daily - 7 x weekly - 3 sets - 12 reps - 3-5 hold Education on HEP (sets, reps, frequency and appropriate response/progression for exercise) Self Care: - Education on joint protection strategies, activity selection. - Education on PT diagnosis, prognosis, expectations of treatment. Response to Treatment: Excellent response to lumbar AROM, reported pain _ GOALS: 1. Pt will be I in HEP for self-management of low back and knee pain in 8-10 weeks 2. Pt will improve PROMIS 6b score by 5 points in order to demonstrate a meaningful reduction in LBP and associated disability in 8 weeks. 3. Patient will demonstrate a single-leg squat to 60 degrees at the knee without apparent movement pattern or increase in symptoms in order to improve his ability to negotiate stairs more easily in 8 weeks. 4. Patient will demonstrate 100% of age expected lumbar rotation in order to improve his ability to enter and exit his vehicle more easily in 8 weeks. _ ASSESSMENT: 47-year-old male presents with essentially 2 separate concerns: Chronic low back pain with mobility deficits. No neurologic or concerning features. Appears to have primarily joint mobility restrictions. Anticipate excellent prognosis with progressive manual therapy/manipulation. Second concern of chronic anterolateral right knee pain. Strong suspicion for patellofemoral pain, especially considering positive grind test. Suspect some compensatory behaviors related to chronic left knee pain/stiffness, hamstring restrictions on that side. Excellent response to treatment primarily focused today on lower back with significant improvement to pain and range of motion. o FUNCTIONAL IMPAIRMENTS: Joint mobility, myofascial restrictions, motor control, MM strength o ACTIVITY LIMITATIONS: Bending, lifting, twisting, stairs o PARTICIPATION RESTRICTIONS: ADLs, community/home mobility REHAB POTENTIAL: Excellent CLINICAL PRESENTATION: stable PLAN: Continue every 1 to 2 weeks x 3 visits and then reassess plan of care. - If still ongoing low back pain could consider long axis manipulation in addition to rotational -Trial taping for right knee -Initiate strengthening around right knee such as four-way hip, hamstring stretching -Present note will serve as d/c note if vet does not present for follow-up within 8 wks Patient Education on Treatment Plan: PT role, POC, rehab expectations. Patient indicated readiness to learn, verbalizes understanding, agreement and satisfaction with the treatment plan. Denies further questions. /william/ [employer] WORK[employer] Physical Therapist Signed: 12/24/2022 16:35 12/25/2022 ADDENDUM STATUS: COMPLETED TERESA: , 18% Baseline PROMIS Pain Interference 6b PROMIS Pain Interference - short form 6b In the past 7 days... How much did pain interfere with your enjoyment of life? A little bit (2) How much did pain interfere with your ability to concentrate? A little bit (2) How much did pain interfere with your day to day activities? A little bit (2) How much did pain interfere with your enjoyment of recreational activities? A little bit (2) How much did pain interfere with doing your tasks away from home (e.g., getting groceries, running errands)? A little bit (2) How often did pain keep you from socializing with others? Never (1) Total RAW Score: 11 RAW SCORE CONVERSION TO T-SCORE: T-score value indicates how score relates to normative samples (a standardized score with a mean of 50 and a standard deviation (SD)of 10). T-Scores >=60 indicate patient is outside the normal range, being 1+ SD worse than average. RAW T-SCORE RAW T-SCORE 6 41 19 62.7 7 48.5 20 63.6 8 50.8 21 64.5 9 52.5 22 65.5 10 53.8 23 66.4 11 55 24 67.4 12 56.1 25 68.5 13 57.1 26 69.6 14 58.1 27 70.9 15 59.1 28 72.4 16 60 29 74.4 17 60.9 30 78.3 18 61.8 T-Score: 55 /william/ [employer] WORK[employer] Physical Therapist Signed: 12/26/2022 07:39 12/26/2022 ADDENDUM STATUS: COMPLETED Near end of session pt mentions 3rd ray PIP pain after spraining finger, and that it remains swollen several weeks after injury. Cosigning PCP for visibility in case an OT/hand therapy referral might be warranted. /william/ [employer] WORK[employer] Physical Therapist Signed: 12/26/2022 07:41 Receipt Acknowledged By: 12/26/2022 15:16 /william/ ARISTIDES [employer] MD [facility] 12/26/2022 ADDENDUM STATUS: COMPLETED 1. I have ordered a Right hand Xray 2. Occupational Therapy was consulted. /william/ ARISTIDES TRAN MD [facility] Signed: 12/26/2022 15:21 Receipt Acknowledged By: 12/27/2022 09:05 /william/ DARRELL NETTLES RN RN, BSN 12/26/2022 15:36 /william/ [employer] Physical Therapist 12/27/2022 ADDENDUM STATUS: COMPLETED Director Of Physician Practices called and spoke to vet. He would like to get xray done 01/04 at 0830, will tell [facility]. /william/ DARRELL NETTLES RN RN, BSN Signed: 12/27/2022 09:05 Receipt Acknowledged By: * AWAITING SIGNATURE * VERONA L[facility]
--- OUTSIDE RECORDS SUMMARY | 2023-11-18 10:17 | XMS_ITS | Continuity of Care Document ---
Author Name [facility] Organization [facility] Care Team Providers Care Shirt Hemmer Name Role Phone [facility] Unavailable Unavailable Problems Combined list of problems from Department of Defense and Veterans Affairs facilities. It does not include entries that were removed or entered in error. Problem Status Onset Date Problem Type Date of Resolution Comments Source Exposure to potentially hazardous substance (SCT [id number]) Active 07/24/19 24 Condition Jul 24, 2023 Entered By: CHENG GOODSON [facility]: [facility] Documentation Initiative [facility] visit for: services physical Inactive 11/07/19 12 Condition visit for: services physical (POST-DEPLOYMEN T EXAMINATION): outprocessing questionnaire reviewed; no active health issues or visits to mental health. [facility] Benign prostatic hyperplasia Active Condition [facility] Chronic low back pain Active Condition [facility] Chronic migraine without aura Active Condition [facility] Dyspnea on exertion Active Condition [facility] Erectile dysfunction Active Condition [facility] Exposure to potentially hazardous chemical Active Condition [facility] Hypertension Active Condition [facility] Mild intermittent asthma Active Condition [facility] Nasal sinus obstruction Active Condition [facility] OEF/OIF/ONE/OSS/ GWOT EXPOSURE TO AQUEOUS FILM FORMING FOAM-AFFF (AL UDIED AB, QATAR/INCIRLIK AB, [place]/BAF/MORON AB, STEPH/USAF/RANK E6/AFSC-[id number]/HALIE B-AIRCRAFT SUPERVISOR DRIED YEAST) Active Condition [facility] OEF/OIF/ONE/OSS/ GWOT EXPOSURE TO HALON FIRE EXTINGUISHER (AL UDIED AB, QATAR/INCIRLIK AB, [place]/BAF/MORON AB, STEPH/USAF/RANK E6/AFSC-[id number]/HALIE B-AIRCRAFT SUPERVISOR DRIED YEAST) Active Condition [facility] OEF/OIF/ONE/OSS/ GWOT EXPOSURE TO HEAVY METALS(AL UDIED AB, QATAR/INCIRLIK AB, [place]/BAF/MORON AB, STEPH/USAF/RANK E6/AFSC-2A574/[facility]-AIRCRAFT SUPERVISOR DRIED YEAST) Active Condition [facility] OEF/OIF/ONE/OSS/ GWOT EXPOSURE TO HYDRAULIC OIL(AL UDIED AB, QATAR/INCIRLIK AB, [place]/BAF/MORON AB, [facility]/RANK E6/AFSC-2A574/ B-AIRCRAFT SUPERVISOR DRIED YEAST) Active Condition [facility] OEF/OIF/ONE/OSS/ GWOT EXPOSURE TO BROWN-4, BROWN-5, BROWN-8, JET-A FUEL (AL UDIED AB, QATAR/INCIRLIK AB, [place]/BAF/MORON AB, STEPH/[facility]/RANK E6/AFSC-2A574/ B-AIRCRAFT SUPERVISOR DRIED YEAST) Active Condition [facility] OEF/OIF/ONE/OSS/ GWOT EXPOSURE TO MOLYBEDENUM GREASE-MOLY B(AL UDIED AB, QATAR/INCIRLIK AB, [place]/BAF/MORON AB, [facility]/RANK E6/AFSC-2A574/[facility]-AIRCRAFT SUPERVISOR DRIED YEAST) Active Condition [facility] OEF/OIF/ONE/OSS/ GWOT EXPOSURE TO OPEN BURN PIT SMOKE (AL UDIED AB, QATAR/INCIRLIK AB, [place]/BAF/MORON AB, STEPH/[facility]/RANK E6/AFSC-2A574/ B-AIRCRAFT SUPERVISOR DRIED YEAST) Active Condition [facility] OEF/OIF/ONE/OSS/ GWOT EXPOSURE TO PURPLE K POWDER-PKP (AL UDIED AB, QATAR/INCIRLIK AB, [place]/BAF/MORON AB, STEPH/[facility]/RANK E6/AFSC-2A574/[facility]-AIRCRAFT SUPERVISOR DRIED YEAST) Active Condition [facility] OEF/OIF/ONE/OSS/ GWOT EXPOSURE TO RADIATION/MQ1 PREDATOR/MQ9 REAPER/KC135 AIRCRAFT/C17 GLOBE MASTER (AL UDIED AB, QATAR/INCIRLIK AB, [place]/BAF/MORON AB, STEPH/[facility]/RANK E6/AFSC-2A574/ B-AIRCRAFT SUPERVISOR DRIED YEAST) Active Condition [facility] OEF/OIF/ONE/OSS/ GWOT EXPOSURE TO SANDSTORMS AND DUSTSTORMS (AL UDIED AB, QATAR/INCIRLIK AB, [place]/BAF/MORON AB, STEPH/USAF/RANK E6/AFSC-2A574/HALIE Anderson-AIRCRAFT SUPERVISOR DRIED YEAST) Active Condition [facility] Pain of bilateral knee regions Active Condition [facility] Prostate specific antigen above reference range Active Condition [facility] Tinnitus Active Condition [facility] Diagnosis: ICD-10-CM Z71.9 Counseling, unspecified Active Diagnosis [facility] Diagnosis: ICD-10-CM F43.21 Adjustment disorder with depressed mood Active Diagnosis [facility] Diagnosis: ICD-10-CM E66.9 Obesity, unspecified Active Diagnosis [facility] Diagnosis: ICD-10-CM I71.20 Thoracic aortic aneurysm, without rupture, unspecified Active Diagnosis [facility] Diagnosis: ICD-10-CM I71.21 Aneurysm of the ascending aorta, without rupture Active Diagnosis [facility] Diagnosis: ICD-10-CM N40.1 Benign prostatic hyperplasia with lower urinary tract symp Active Diagnosis [facility] Diagnosis: ICD-10-CM R52 Pain, unspecified Active Diagnosis [facility] Diagnosis: ICD-10-CM J45.20 Mild intermittent asthma, uncomplicated Active Diagnosis [facility] Diagnosis: ICD-10-CM M54.50 Low back pain, unspecified Active Diagnosis [facility] Diagnosis: ICD-10-CM Z71.89 Other specified counseling Active Diagnosis [facility] Diagnosis: ICD-10-CM J01.90 Acute sinusitis, unspecified Active Diagnosis [facility] Diagnosis: ICD-10-CM Z46.1 Encounter for fitting and adjustment of hearing aid Active Diagnosis [facility] Diagnosis: ICD-10-CM Z01.118 Encntr for exam of ears and hearing w oth abnormal findings Active Diagnosis [facility] Diagnosis: ICD-10-CM Z77.9 Oth contact w and (suspected) exposures hazardous to health Active Diagnosis [facility] Diagnosis: ICD-10-CM M25.569 Pain in unspecified knee Active Diagnosis [facility] Medications Combined list of outpatient medications from Department of Defense and Veterans Affairs facilities.Medications provided include 1) outpatient medications from the last 15 months, and 2) patient-reported medications. Medication Details Route Status Patient Instructions Prescription Expires Prescription Number Last Dispense Date Ordering Provider Order Date Order Qty Source ALBUTEROL 90MCG/ACTUA T (CFC-F) INHL,ORAL,8 .5GM DOSE COUNTER ALBUTERO L 90MCG/AC TUAT (CFC-F) INHL,ORA L,8.5GM DOSE COUNTER INHALE 2 PUFFS BY INHALATI ON EVERY 6 HOURS NEEDED FOR WHEEZING FOR WHEEZING Apr 01, 2023 1 May 01, 2023 [id number] Apr 01, [address] RESPIR ATORY (INHAL ATION) 05/01/2023 [id number] EDWARD VALENTE 2022 1 [facility] AMOXICILLIN TRIHYDRATE 875MG/CLAVU LANATE K 125MG TAB AMOXICIL JERAD TRIHYDRA TE 875MG/CL AVULANAT E K 125MG TAB TAKE 1 TABLET BY MOUTH TWICE A DAY FOR SINUSITI S FOR 5 DAYS FOR SINUSITI S Apr 01, 2023 10 May 01, 2023 [id number] Apr 01, 2023 KRISTEN VALENTE [facility] ORAL 05/01/2023 [id number] EDWARD VALENTE 2022 10 [facility] BENZONATATE 100MG CAP BENZONAT ATE 100MG CAP TAKE ONE CAPSULE BY MOUTH THREE TIMES A DAY NEEDED FOR COUGH FOR 10 DAYS FOR COUGH Apr 01, 2023 30 May 01, 2023 [id number] Apr 01, 2023 [facility]2023 [id number] [facility] 30 [facility] BUDESONIDE 160MCG/FORM OTEROL FUM 4.5MCG/SPRA Y INHL,ORAL,1 0.2GM BUDESONI DE 160MCG/F ORMOTERO L FUM 4.5MCG/S PRAY INHL,ORA L,10.2GM Disconti nued INHALE 1 PUFF BY INHALATI ON NEEDED FOR ASTHMA May 21, 2023 1 Jun 20, 2023 [id number] May 21, 2023 Alexandra DE LA CRUZO LIS [facility] RESPIR ATORY (INHAL ATION) DISCONT INUED (EDIT) 06/20/2023 [id number] VERNELL DE LA CRUZ E 2023 1 [place] [facility] BUDESONIDE 160MCG/FORM OTEROL FUM 4.5MCG/SPRA Y INHL,ORAL,1 0.2GM BUDESONI DE 160MCG/F ORMOTERO L FUM 4.5MCG/S PRAY INHL,ORA L,10.2GM INHALE 1 PUFF BY INHALATI ON EVERY 4 HOURS NEEDED FOR ASTHMA MAXIMUM 12 PUFFS PER DAY FOR ASTHMA May 21, 2023 1 Jun 20, 2023 [id number] May 21, 2023 Alexandra DE LA CRUZAPO LIS [facility] RESPIR ATORY (INHAL ATION) 06/20/2023 [id number] VERNELL DE LA CRUZ E 2023 1 [place] [facility] CETIRIZINE HCL 10MG TAB CETIRIZI NE HCL 10MG TAB TAKE ONE TABLET BY MOUTH EVERY DAY ALLERGIE S ALLERGIE S May 21, 2023 30 Jun 20, 2023 [id number] May 21, 2023 Alexandra [facility] 06/20/2023 [id number] VERNELL DE LA CRUZ E 2023 30 [place] [facility] ETODOLAC 200 MG ORAL CAP TAKE ONE CAPSULE BY MOUTH THREE TIMES A DAY FOR PAIN Active 12/25/2023 [id number] ANSAR, AZBER A 2022 90 [place] [facility] ETODOLAC 200MG CAP ETODOLAC 200MG CAP Active TAKE ONE CAPSULE BY MOUTH THREE TIMES A DAY FOR PAIN FOR PAIN Dec 24, 2022 90 Dec 25, 2023 [id number] Dec 24, 2022 ANSAR,AZ JONATHAN A [place] [facility] OR[facility] ACTIVE 12/25/2023 [id number] ANSAR,AZB ER A 2022 90 [place] [facility] FLOMAX (BRAND) 0.4 MG ORAL CAP TAKE ONE CAPSULE BY MOUTH AT BEDTIME FOR PROSTATE Active 12/25/2023 [id number] ARISTIDES TRAN A 2022 90 [facility] FLUTICASONE PROPIONATE 50MCG/SPRAY SOLN,NASAL, 16GM FLUTICAS ONE PROPIONA TE 50MCG/SP RAY SOLN,RHIANNA AL,16GM SPRAY 2 SPRAYS IN EACH NOSTRIL EVERY DAY FOR 1 WEEK, THEN SPRAY 1 SPRAY EVERY DAY FOR 3 WEEKS POSTNASA L DRIP May 21, 2023 1 Jun 20, 2023 [id number] May 21, 2023 Alexandra DE LA CRUZ E [facility] NASAL 06/20/2023 [id number] VERNELL DE LA CRUZ 2023 1 [facility] hydroCHLORO thiazide 12.5 mg oral capsule TAKE 1 CAPSULE BY MOUTH EVERY DAY, # 90 EA, 1 total refill(s ), Acute Complet ed 06/10/2023 90.0 Ambulat ory Pharmac y HYDROCHLORO THIAZIDE 25MG/TRIAMT ERENE 37.5MG TAB HYDROCHL OROTHIAZ DANIA 25MG/TRI AMTERENE 37.5MG TAB Active TAKE 1 TABLET BY MOUTH EVERY DAY FOR BLOOD PRESSURE FOR BLOOD PRESSURE October 11, 2023 90 October 11, 2024 [id number] October 11, 2023 GUICHO-POR RIGO BRINK [facility] ORAL ACTIVE 10/11/2024 [id number] GUICHO-PORT RIGO ALAMO 2023 90 [facility] HYDROCHLORO THIAZIDE 25MG/TRIAMT ERENE 37.5MG TAB HYDROCHL OROTHIAZ DANIA 25MG/TRI AMTERENE 37.5MG TAB Disconti nued TAKE 1 TABLET BY MOUTH EVERY DAY FOR BLOOD PRESSURE FOR BLOOD PRESSURE Dec 24, 2022 90 Dec 25, 2023 [id number] Aug 21, 2023 GUILLERMO TRAN A [facility] ORAL DISCONT INUED 12/25/2023 [id number] ARLENE TRAN ER A 2022 90 [facility] IRX: Sildenafil 100 mg/Placebo Tablet Oral TAKE ONE TABLET BY MOUTH NEEDED FOR ERECTILE DYSFUNCT ION Active 12/25/2023 [id number] ARISTIDES TRAN A 2022 18 [facility] MAXZIDE (BRAND) 37.5 MG-25 MG ORAL TAB TAKE 1 TABLET BY MOUTH EVERY DAY FOR BLOOD PRESSURE Active 12/25/2023 [id number] 3 ARISTIDES TRAN A 2022 90 [facility] metoprolol succ (U/D) 25 MG ORAL TB24 TAKE ONE TABLET BY MOUTH EVERY DAY FOR BLOOD PRESSURE Active 12/25/2023 [id number] ARISTIDES TRAN A 2022 90 [facility] METOPROLOL SUCCINATE 25MG TAB,SA METOPROL OL SUCCINAT E 25MG TAB,SA Disconti nued TAKE ONE TABLET BY MOUTH EVERY DAY FOR BLOOD PRESSURE FOR BLOOD PRESSURE Dec 24, 2022 90 Dec 25, 2023 [id number] Aug 21, 2023 GUILLERMO TRAN A [facility] ORAL DISCONT INUED (EDIT) 12/25/2023 [id number] ARLENE TRAN ER A 2022 90 [facility] METOPROLOL SUCCINATE 50MG TAB,SA METOPROL OL SUCCINAT E 50MG TAB,SA Active TAKE ONE TABLET BY MOUTH EVERY DAY FOR BLOOD PRESSURE FOR BLOOD PRESSURE October 11, 2023 90 October 11, 2024 [id number] October 11, 2023 GUICHO-POR RIGO BRINK [facility] ORAL ACTIVE 10/11/2024 [id number] GUICHO-PORT RIGO ALAMO 2023 90 [facility] SILDENAFIL CITRATE 100MG TAB SILDENAF IL CITRATE 100MG TAB Active TAKE ONE TABLET BY MOUTH NEEDED FOR ERECTILE DYSFUNCT ION FOR ERECTILE DYSFUNCT ION Dec 24, 2022 18 Dec 25, 2023 [id number] Jul 09, 2023 GUILLERMO TRAN A [facility] ORAL ACTIVE 12/25/2023 [id number] ARLENE TRAN ER A 2022 18 [facility] SINUS RINSE NEILMED REGULAR KIT SINUS RINSE NEILMED REGULAR KIT USE 1 PACKET EACH NOSTRIL FOUR TIMES A DAY NEEDED FOR SINUS CONGESTI ON FOR SINUS CONGESTI ON Apr 01, 2023 1 May 01, 2023 [id number] Apr 01, 2023 SIDRAKRISTEN COOKIE Miller [facility] NASAL 05/01/2023 [id number] DHEERAJPaulEDWARD JUAN C Miller 2022 1 [facility] TAMSULOSIN HCL 0.4MG CAP TAMSULOS IN HCL 0.4MG CAP Active TAKE ONE CAPSULE BY MOUTH TWICE A DAY FOR PROSTATE FOR PROSTATE Jul 09, 2023 180 Jul 09, 2024 [id number] Aug 21, 2023 Jeanette ULLOA [facility] ORAL ACTIVE 07/09/2024 [id number] GISELLE ULLOA 2023 180 [facility] TAMSULOSIN HCL 0.4MG CAP TAMSULOS IN HCL 0.4MG CAP Disconti nued TAKE ONE CAPSULE BY MOUTH AT BEDTIME FOR PROSTATE FOR PROSTATE Dec 24, 2022 90 Dec 25, 2023 [id number] May 02, 2023 GUILLERMO TRAN JONATHAN A [facility] ORAL DISCONT INUED (EDIT) 12/25/2023 [id number] ARLENE TRAN ER A 2022 90 [facility] Allergies, Adverse Reactions, Alerts Combined list of allergies from Department of Defense and Veterans Affairs facilities. It does not include entries that were removed or entered in error. Substance Category Reaction Severity Reaction type Status Date Reported Comments Source No Known Allergies Drug allergy (disorder) active 06/05/2009 [place] Luis dutta, [place] Immunizations Combined list of available immunizations from the Department of Defense and Veterans Affairs facilities. Immunization Series Date Given Administered By Site Reaction Lot Number CVX Code Drug Customer Contact Sales Associate Status Comments Source COVID-19 (PFIZER), MRNA, LNP-S, PF, RAYMOND-SUCROSE, 30 MCG/0.3 ML (AGES 12+ YEARS) 1 2023 RAMIREZ CASTLE E LEFT DELTO ID [id number] complet ed [facility] PNEUMOCOCCAL CONJUGATE PCV20, POLYSACCHARID E [id number] CONJUGATE, ADJUVANT, PF 2023 RAMIREZ CASTLE E LEFT DELTO ID [id number] complet ed [facility] INFLUENZA, INJECTABLE, QUADRIVALENT, PRESERVATIVE FREE 2023 HABTESELASSIE ,ANDOM G RIGHT DELTO ID [id number] 150 complet ed [facility] TDAP 2023 HABTESELASSIE ,ANDOM G RIGHT DELTO ID [id number] complet ed [facility] COVID-19 vaccine(Pfize r Bival 12yr+) 2021 Left Arm [id number] complet ed COVID-19 vaccine(P fizer Bival 12yr+) 03/16/22 Given Ambulat ory Pharmac y COVID-19, mRNA, LNP-S, bivalent, PF, 30 mcg/0.3 mL dose (Pfizer, 12+ years) 1 2021 [id number] 300 Transcribed (TRS) complet ed COVID-19, mRNA, LNP-S, bivalent, PF, 30 mcg/0.3 mL dose (Pfizer, 12+ years) [facility] influenza, injectable, quadrivalent- pf 2021 Left Arm [id number] 150 GlaxoSmithKli ne complet ed influenza , injectabl e, quadrival ent-pf 03/07/22 Given Ambulat ory Pharmac y Influenza, injectable, quadrivalent, preservative free 1 2021 GEOVANY WALTERS [id number] 150 [facility] complet ed Influenza , injectabl e, quadrival ent, preservat nate free DoD COVID Vaccine Pfizer 2020 Left Arm [id number] PFIZER complet ed COVID Vaccine [facility] 04/03/21 Given Ambulat ory Pharmac y SARS-COV-2 (COVID-19) vaccine, mRNA, spike protein, LNP, preservative free, 30 mcg/0.3mL dose 1 2020 YADIRA SANTIAGO [id number] 208 [employer] Inc (PFR) complet ed SARS-COV- 2 (COVID-19 ) vaccine, mRNA, spike protein, LNP, preservat nate free, 30 mcg/0.3mL dose DoD influenza, injectable, quadrivalent- pf 2020 Left Arm [id number] 150 GlaxoSmithKli ne complet ed influenza , injectabl e, quadrival ent-pf 03/22/21 Given Ambulat ory Pharmac y Influenza, injectable, quadrivalent, preservative free 1 2020 ADELINE US [id number] 150 [employer] (SKB) complet ed Influenza , injectabl e, quadrival ent, preservat nate free DoD tetanus-dipht h toxoids (Td) adult/adol 2020 Right Arm [id number] 09 sanofi pasteur complet ed tetanus-d iphth toxoids (Td) adult/ado l 11/11/20 Given Ambulat ory Pharmac y tetanus and diphtheria toxoids, adsorbed, preservative free, for adult use (2 Lf of tetanus toxoid and 2 Lf of diphtheria toxoid) 1 2020 CARMEN HAYDEN [id number] 09 Sanofi Pasteur (PMC) complet ed tetanus and diphtheri a toxoids, adsorbed, preservat nate free, for adult use (2 Lf of tetanus toxoid and 2 Lf of diphtheri a toxoid) DoD SARS-CoV-2 (COVID-19) Ad26 vaccine, rec 2020 Left Arm [id number] complet ed SARS-CoV- 2 (COVID-19 ) Ad26 vaccine, rec 08/25/20 Given Ambulat ory Pharmac y SARS-COV-2 (COVID-19) vaccine, vector non-replicati ng, recombinant spike protein-Ad26, preservative free, 0.5 mL 1 2020 JOAQUIN KNOX [id number] 212 [facility] (JSN) complet ed SARS-COV- 2 (COVID-19 ) vaccine, vector non-repli cating, recombina nt spike protein-A d26, preservat nate free, 0.5 mL DoD influenza, injectable, quadrivalent 2019 [id number] 158 Seqirus complet ed influenza , injectabl e, quadrival ent 04/25/20 Given Ambulat ory Pharmac y influenza, injectable, quadrivalent- pf 2019 Left Arm [id number] 150 [employer] complet ed influenza , injectabl e, quadrival ent-pf 04/25/20 Given Ambulat ory Pharmac y Influenza, injectable, quadrivalent, preservative free 1 2019 TA NG [id number] 150 Seqirus (SEQ) complet ed Influenza , injectabl e, quadrival ent, preservat nate free DoD influenza, seasonal, injectable 2019 [id number] 141 sanofi pasteur complet ed influenza , seasonal, injectabl e 02/19/20 Given Ambulat ory Pharmac y influenza, seasonal, injectable 2018 [id number] 141 Se[employer] complet ed influenza , seasonal, injectabl e 03/05/19 Given Ambulat ory Pharmac y influenza, seasonal, injectable 2017 [id number] 141 sanofi pasteur complet ed influenza , seasonal, injectabl e 03/18/18 Given Ambulat ory Pharmac y Influenza, seasonal, injectable 1 2017 [id number] 141 Sanofi Pasteur (PMC) complet ed Influenza , seasonal, injectabl e DoD influenza, seasonal, injectable 2016 [id number] 141 [employer] complet ed influenza , seasonal, injectabl e 02/19/17 Given Ambulat ory Pharmac y Influenza, seasonal, injectable 1 2016 [id number] 141 Se[employer]irus (SEQ) comple t ed Influenza , seasonal, injectabl e DoD influenza, seasonal, injectable-pf 2015 [id number] 1A 140 Se[employer] complet ed influenza , seasonal, injectabl e-pf 02/18/16 Given Ambulat ory Pharmac y Influenza, seasonal, injectable, preservative free 15 2015 [id number] 1A 140 Se[employer]irus (SEQ) complet ed Influenza , seasonal, injectabl e, preservat nate free DoD influenza, live, intranasal,qu adrivalent 2014 [id number] 149 Medimmune Inc comple t ed influenza , live, intranasa l,quadriv alent 03/12/15 Given Ambulat ory Pharmac y influenza, live, intranasal, quadrivalent 14 2014 [id number] 149 MedImmune, Inc. (MED) complet ed influenza , live, intranasa l, quadrival ent DoD influenza, seasonal, injectable-pf 2013 TRANSCR IBED 140 complet ed influenza , seasonal, injectabl e-pf 04/04/14 Given Ambulat ory Pharmac y Influenza, seasonal, injectable, preservative free 1 2013 140 Transcribed (TRS) complet ed Influenza , seasonal, injectabl e, preservat nate free DoD influenza, live, intranasal,qu adrivalent 2012 [id number] 149 Medimmune Inc comple t ed influenza , live, intranasa l,quadriv alent 01/27/13 Given Ambulat ory Pharmac y anthrax vaccine 2012 [id number] 24 [employer] complet ed anthrax vaccine 01/27/13 Given Ambulat ory Pharmac y anthrax vaccine 6 2012 [id number] 24 [employer] [place] ([facility]) complet ed anthrax vaccine DoD influenza, live, intranasal, quadrivalent 12 2012 [id number] 149 [employer] (MED) complet ed influenza , live, intranasa l, quadrival ent DoD tuberculin purified protein derivative 2012 [id number] 96 sanofi pasteur complet ed tuberculi n purified protein derivativ e 07/12/12 Given Ambulat ory Pharmac y influenza virus vaccine, live 2012 [id number] 111 [employer] comple t ed influenza virus vaccine, live 07/12/12 Given Ambulat ory Pharmac y influenza virus vaccine, live, attenuated, for intranasal use 11 2012 [id number] 111 [employer] (MED) complet ed influenza virus vaccine, live, attenuate d, for intranasa l use [facility] tuberculin purified protein derivative 2011 [id number] 96 sanofi pasteur complet ed tuberculi n purified protein derivativ e 01/05/12 Given Ambulat ory Pharmac y tetanus, diphtheria, acellular pertu is 2011 [id number] 115 sanofi pasteur complet ed tetanus, diphtheri a, acellular pertussis 06/10/11 Given Ambulat ory Pharmac y typhoid Vi capsular polysaccharid e vac 2011 [id number] 101 sanofi pasteur complet ed typhoid Vi capsular polysacch aride vac 06/10/11 Given Ambulat ory Pharmac y anthrax vaccine 2011 [id number] 24 [employer] complet ed anthrax vaccine 06/10/11 Given Ambulat ory Pharmac y anthrax vaccine 5 2011 [id number] [address] (MIP) complet ed anthrax vaccine DoD typhoid Vi capsular polysaccharid e vaccine 5 2011 [id number] 101 Sanofi Pasteur ([facility]) complet ed typhoid Vi capsular polysacch aride vaccine DoD tetanus toxoid, reduced diphtheria toxoid, and acellular pertu is vaccine, adsorbed 0 2011 [id number] 115 Sanofi Pasteur ([facility]) complet ed tetanus toxoid, reduced diphtheri a toxoid, and acellular pertussis vaccine, adsorbed DoD influenza virus vaccine, unspecified 2010 [id number] 88 sanofi pasteur complet ed influenza virus vaccine, unspecifi ed 03/10/11 Given Ambulat ory Pharmac y influenza virus vaccine, unspecified formulation 1 2010 [id number] 88 Sanofi Pasteur ([facility]) complet ed influenza virus vaccine, unspecifi ed formulati on DoD influenza virus vaccine,split 2009 [id number] 15 CSL Behring complet ed influenza virus vaccine,s plit 03/04/10 Given Ambulat ory Pharmac y influenza virus vaccine, split virus (incl. purified surface antigen)-reti red CODE 1 2009 [id number] 15 [employer] (CS) complet ed influenza virus vaccine, split virus (incl. purified surface antigen)- retired CODE DoD meningococcal A,C,Y,W-135 (MCV4P) 2009 [id number] 114 sanofi pasteur complet ed meningoco ccal A,C,Y,W-1 35 (MCV4P) 12/12/09 Given Ambulat ory Pharmac y meningococcal polysaccharid e (groups A, C, Y and W-135) diphtheria toxoid conjugate vaccine (MCV4P) 1 2009 [id number] 114 Sanofi Pasteur ([facility]) complet ed meningoco ccal polysacch aride (groups A, C, Y and W-135) diphtheri a toxoid conjugate vaccine (MCV4P) [facility] Novel influenza-H1N 1-09, injectable 2009 [id number] 1 127 Novartis Pharmaceutica complet ed Novel influenza -Y6H0-97, injectabl e 05/28/09 Given Ambulat ory Pharmac y typhoid Vi capsular polysaccharid e vac 2009 [id number] 101 sanofi pasteur complet ed typhoid Vi capsular polysacch aride vac 05/28/09 Given Ambulat ory Pharmac y typhoid Vi capsular polysaccharid e vaccine 1 2009 [id number] 2 101 Sanofi Pasteur ([facility]) complet ed typhoid Vi capsular polysacch aride vaccine DoD Novel influenza-H1N 1-09, injectable 1 2009 [id number] 1 127 Novartis Zaplee. (NOV) complet ed Novel influenza -N0M4-10, injectabl e DoD influenza virus vaccine,split 2008 [id number] 1A 15 CSL Behring complet ed influenza virus vaccine,s plit 03/06/09 Given Ambulat ory Pharmac y influenza virus vaccine, split virus (incl. purified surface antigen)-reti red CODE 1 2008 [id number] 1A 15 [employer]. (CSL) complet ed influenza virus vaccine, split virus (incl. purified surface antigen)- retired CODE DoD influenza virus vaccine,split 2007 [id number] 15 [employer] ne complet ed influenza virus vaccine,s plit 05/08/08 Given Ambulat ory Pharmac y influenza virus vaccine, split virus (incl. purified surface antigen)-reti red CODE 1 2007 [id number] 15 [employer] (SKB) complet ed influenza virus vaccine, split virus (incl. purified surface antigen)- retired CODE DoD influenza virus vaccine, live 2006 [id number] [employer] comple t ed influenza virus vaccine, live 05/03/07 Given Ambulat ory Pharmac y influenza virus vaccine, live, attenuated, for intranasal use 1 2006 [id number] [employer] (MED) complet ed influenza virus vaccine, live, attenuate d, for intranasa l use DoD hepatitis B vaccine, adult dosage 0 2006 43 () Not Given hepatitis B vaccine, adult dosage DoD typhoid Vi capsular polysaccharid e vac 2005 [id number] sanofi pasteur complet ed typhoid Vi capsular polysacch aride vac 11/25/05 Given Ambulat ory Pharmac y typhoid Vi capsular polysaccharid e vaccine 1 2005 [id number] 101 Sanofi Pasteur ([facility]) complet ed typhoid Vi capsular polysacch aride vaccine DoD vaccinia (smallpox) vaccine 2005 [id number] threadsy complet ed vaccinia (smallpox ) vaccine 05/22/05 Given Ambulat ory Pharmac y vaccinia (smallpox) vaccine 1 2005 [id number] Mark (GE) complet ed vaccinia (smallpox ) vaccine DoD influenza virus vaccine, whole virus 2004 [id number] 16 sanofi pasteur complet ed influenza virus vaccine, whole virus 04/25/05 Given Ambulat ory Pharmac y influenza virus vaccine,split 2004 [id number] 15 sanofi pasteur complet ed influenza virus vaccine,s plit 04/25/05 Given Ambulat ory Pharmac y influenza virus vaccine, split virus (incl. purified surface antigen)-reti red CODE 1 2004 [id number] 15 Sanofi Pasteur ([facility]) complet ed influenza virus vaccine, split virus (incl. purified surface antigen)- retired CODE DoD influenza virus vaccine, live 2004 [id number] 111 [employer] comple t ed influenza virus vaccine, live 06/09/04 Given Ambulat ory Pharmac y influenza virus vaccine, live, attenuated, for intranasal use 0 2004 [id number] 111 [employer] (MED) complet ed influenza virus vaccine, live, attenuate d, for intranasa l use DoD typhoid Vi capsular polysaccharid e vac 2003 [id number] 101 sanofi pasteur complet ed typhoid Vi capsular polysacch aride vac 11/28/03 Given Ambulat ory Pharmac y typhoid Vi capsular polysaccharid e vaccine 0 2003 [id number] 101 Sanofi Pasteur ([facility]) complet ed typhoid Vi capsular polysacch aride vaccine DoD anthrax vaccine 2003 [id number] [employer] complet ed anthrax vaccine 09/19/03 Given Ambulat ory Pharmac y anthrax vaccine 5 2003 [id number] [employer] [place] ([facility]) complet ed anthrax vaccine DoD tuberculin purified protein derivative 2002 [id number] [facility] complet ed tuberculi n purified protein derivativ e 04/25/03 Given Ambulat ory Pharmac y influenza virus vaccine, whole virus 2002 [id number] 16 [employer] complet ed influenza virus vaccine, whole virus 04/25/03 Given Ambulat ory Pharmac y influenza virus vaccine, whole virus 0 2002 [id number] 16 [employer] (PWJ) complet ed influenza virus vaccine, whole virus DoD anthrax vaccine 2002 [id number] [employer] complet ed anthrax vaccine 03/22/03 Given Ambulat ory Pharmac y anthrax vaccine 4 2002 [id number] [employer] [place] ([facility]) complet ed anthrax vaccine DoD anthrax vaccine 2002 [id number] [employer] complet ed anthrax vaccine 07/08/02 Given Ambulat ory Pharmac y anthrax vaccine 3 2002 [id number] [employer] [place] ([facility]) complet ed anthrax vaccine DoD anthrax vaccine 2002 [id number] [employer] complet ed anthrax vaccine 06/21/02 Given Ambulat ory Pharmac y anthrax vaccine 2 2002 [id number] 24 [employer] [place] ([facility]) complet ed anthrax vaccine DoD anthrax vaccine 2002 [id number] [employer] complet ed anthrax vaccine 06/07/02 Given Ambulat ory Pharmac y anthrax vaccine 1 2002 [id number] [employer] [employer] ([facility]) complet ed anthrax vaccine DoD anthrax vaccine 2001 [id number] 24 [employer] complet ed anthrax vaccine 03/22/02 Given Ambulat ory Pharmac y anthrax vaccine 1 2001 [id number] [employer] [place] ([facility]) complet ed anthrax vaccine DoD tuberculin purified protein derivative 2001 [id number] sanofi pasteur complet ed tuberculi n purified protein derivativ e 02/22/02 Given Ambulat ory Pharmac y influenza virus vaccine, whole virus 2001 [id number] 16 sanofi pasteur complet ed influenza virus vaccine, whole virus 02/22/02 Given Ambulat ory Pharmac y influenza virus vaccine, whole virus 0 2001 [id number] 16 Sanofi Pasteur ([facility]) complet ed influenza virus vaccine, whole virus DoD hepatitis A adult vaccine 2001 [id number] [employer] Inc complet ed hepatitis A adult vaccine 11/30/01 Given Ambulat ory Pharmac y hepatitis A vaccine, adult dosage 2 2001 [id number] Merck (MSD) complet ed hepatitis A vaccine, adult dosage DoD yellow fever vaccine 2001 [id number] 37 sanofi pasteur complet ed yellow fever vaccine 11/12/01 Given Ambulat ory Pharmac y yellow fever vaccine 0 2001 [id number] Sanofi Pasteur ([facility]) complet ed yellow fever vaccine DoD tetanus-dipht h toxoids (Td) adult/adol 2001 [id number] 09 sanofi pasteur complet ed tetanus-d iphth toxoids (Td) adult/ado l 10/19/01 Given Ambulat ory Pharmac y typhoid Vi capsular polysaccharid e vac 2001 [id number] sanofi pasteur complet ed typhoid Vi capsular polysacch aride vac 10/19/01 Given Ambulat ory Pharmac y tetanus and diphtheria toxoids, adsorbed, preservative free, for adult use (2 Lf of tetanus toxoid and 2 Lf of diphtheria toxoid) 0 2001 [id number] 09 Sanofi Pasteur ([facility]) complet ed tetanus and diphtheri a toxoids, adsorbed, preservat nate free, for adult use (2 Lf of tetanus toxoid and 2 Lf of diphtheri a toxoid) DoD typhoid Vi capsular polysaccharid e vaccine 0 2001 [id number] Sanofi Pasteur ([facility]) complet ed typhoid Vi capsular polysacch aride vaccine DoD measles, mumps and rubella virus vaccine 0 2001 03 () Not Given measles, mumps and rubella virus vaccine DoD varicella virus vaccine 1 2001 21 () Not Given varicella virus vaccine DoD tuberculin purified protein derivative 2001 [id number] 96 sanofi pasteur complet ed tuberculi n purified protein derivativ e 05/23/01 Given Ambulat ory Pharmac y meningococcal polysaccharid e (MPSV4) 2001 [id number] 32 sanofi pasteur complet ed meningoco ccal polysacch aride (MPSV4) 05/23/01 Given Ambulat ory Pharmac y poliovirus vaccine, inactivated 2001 [id number] 10 sanofi pasteur complet ed polioviru s vaccine, inactivat ed 05/23/01 Given Ambulat ory Pharmac y hepatitis A adult vaccine 2001 [id number] 52 Merck & Company Inc complet ed hepatitis A adult vaccine 05/23/01 Given Ambulat ory Pharmac y influenza virus vaccine, whole virus 2001 [id number] 16 [employer]ck & [employer] Inc complet ed influenza virus vaccine, whole virus 05/23/01 Given Ambulat ory Pharmac y poliovirus vaccine, inactivated 0 2001 [id number] 10 Sanofi Pasteur ([facility]MC) complet ed polioviru s vaccine, inactivat ed DoD influenza virus vaccine, whole virus 0 2001 [id number] 16 Merck (MSD) complet ed influenza virus vaccine, whole virus DoD meningococcal polysaccharid e vaccine (MPSV4) 0 2001 [id number] 32 Sanofi Pasteur (PMC) complet ed meningoco ccal polysacch aride vaccine (MPSV4) DoD hepatitis A vaccine, adult dosage 1 2001 [id number] 52 Merck (MSD) complet ed hepatitis A vaccine, adult dosage DoD Results Combined list of recent chemistry, hematology and other laboratory results from [facility] and [facility], ranging from 15 months to all on record, depending upon the facility. Order Name Results Value Reference Range Date Interpretation Specimen Comments Source CBC & DIFF LEUKOCYTES [#/VOLUME] IN BLOOD BY AUTOMATED COUNT 5.90 10*3/uL 4.0 - 11.0 07/09 Specimen Type: BLOOD Comment: Automated Differentia l Performed Ordering Provider: ARISTIDES TRAN Report Released Date/Time: Dec 24, 2022 09:18 AM Reporting Lab: [facility] [address] Performing Lab: [facility] [address] [facility] CBC & DIFF ERYTHROCYT ES [#/VOLUME] IN BLOOD BY AUTOMATED COUNT 5.10 10*6/uL 4.6 - 6.2 07/09 Specimen Type: BLOOD Comment: Automated Differentia l Performed Ordering Provider: ARISTIDES TRAN Report Released Date/Time: Dec 24, 2022 09:18 AM Reporting Lab: [facility] [address] Performing Lab: [facility] [address] [facility] CBC & DIFF HEMOGLOBIN [MASS/VOLU ME] IN BLOOD 17.1 g/dL 13.5 - 17.9 07/09 Specimen Type: BLOOD Comment: Automated Differentia l Performed Ordering Provider: ARISTIDES TRAN Report Released Date/Time: Dec 24, 2022 09:18 AM Reporting Lab: [facility] [address] Performing Lab: [facility] [address] [place] [facility] CBC & DIFF HEMATOCRIT [VOLUME FRACTION] OF BLOOD BY AUTOMATED COUNT 46.7 41 - 54 07/09 Specimen Type: BLOOD Comment: Automated Differentia l Performed Ordering Provider: ARISTIDES TRAN Report Released Date/Time: Dec 24, 2022 09:18 AM Reporting Lab: [facility] [address] Performing Lab: [facility] [address] [place] [facility] CBC & DIFF MCV [ENTITIC VOLUME] BY AUTOMATED COUNT 91.6 fL 80 - 100 07/09 Specimen Type: BLOOD Comment: Automated Differentia l Performed Ordering Provider: ARISTIDES TRAN Report Released Date/Time: Dec 24, 2022 09:18 AM Reporting Lab: [facility] [address] Performing Lab: [facility] [address] [place] [facility] CBC & DIFF MCH [ENTITIC MASS] BY AUTOMATED COUNT 33.5 pg 27 - 33 07/09 H Specimen Type: BLOOD Comment: Automated Differentia l Performed Ordering Provider: ARISTIDES TRAN Report Released Date/Time: Dec 24, 2022 09:18 AM Reporting Lab: [facility] [address] Performing Lab: [facility] [address] [place] [facility] CBC & DIFF MCHC [MASS/VOLU ME] BY AUTOMATED COUNT 36.6 g/dL 32.0 - 37.5 07/09 Specimen Type: BLOOD Comment: Automated Differentia l Performed Ordering Provider: ARISTIDES TRAN Report Released Date/Time: Dec 24, 2022 09:18 AM Reporting Lab: [facility] [address] Performing Lab: [facility] [address] [place] [facility] CBC & DIFF PLATELETS [#/VOLUME] IN BLOOD BY AUTOMATED COUNT 235 10*3/uL 150 - 400 07/09 Specimen Type: BLOOD Comment: Automated Differentia l Performed Ordering Provider: ARISTIDES TRAN Report Released Date/Time: Dec 24, 2022 09:18 AM Reporting Lab: [facility] [address] Performing Lab: [facility] [address] [place] [facility] CBC & DIFF PLATELET MEAN VOLUME [ENTITIC VOLUME] IN BLOOD BY AUTOMATED COUNT 10.5 fL 7.4 - 10.4 07/09 H Specimen Type: BLOOD Comment: Automated Differentia l Performed Ordering Provider: ARISTIDES TRAN Report Released Date/Time: Dec 24, 2022 09:18 AM Reporting Lab: [facility] [address] Performing Lab: [facility] [address] [place] [facility] CBC & DIFF NEUTROPHIL S/100 LEUKOCYTES IN BLOOD BY MANUAL COUNT 58.8 40.0 - 80.0 07/09 Specimen Type: BLOOD Comment: Automated Differentia l Performed Ordering Provider: ARISTIDES TRAN Report Released Date/Time: Dec 24, 2022 09:18 AM Reporting Lab: [facility] [address] Performing Lab: [facility] [address] [place] [facility] CBC & DIFF LYMPHOCYTE S/100 LEUKOCYTES IN BLOOD BY MANUAL COUNT 32.5 15.0 - 45.0 07/09 Specimen Type: BLOOD Comment: Automated Differentia l Performed Ordering Provider: ARISTIDES TRAN Report Released Date/Time: Dec 24, 2022 09:18 AM Reporting Lab: [facility] [address] Performing Lab: [facility] [address] [place] [facility] CBC & DIFF MONOCYTES/ 100 LEUKOCYTES IN BLOOD BY AUTOMATED COUNT 5.3 2.0 - 12.0 07/09 Specimen Type: BLOOD Comment: Automated Differentia l Performed Ordering Provider: ARISTIDES TRAN Report Released Date/Time: Dec 24, 2022 09:18 AM Reporting Lab: [facility] [address] Performing Lab: [facility] [address] [place] [facility] CBC & DIFF EOSINOPHIL S/100 LEUKOCYTES IN BLOOD BY AUTOMATED COUNT 2.4 0.0 - 6.0 07/09 Specimen Type: BLOOD Comment: Automated Differentia l Performed Ordering Provider: ARISTIDES TRAN Report Released Date/Time: Dec 24, 2022 09:18 AM Reporting Lab: [facility] [address] Performing Lab: [facility] [address] [place] [facility] CBC & DIFF BASOPHILS/ 100 LEUKOCYTES IN BLOOD BY MANUAL COUNT 0.7 0.0 - 2.0 07/09 Specimen Type: BLOOD Comment: Automated Differentia l Performed Ordering Provider: ARISTIDES TRAN Report Released Date/Time: Dec 24, 2022 09:18 AM Reporting Lab: [facility] [address] Performing Lab: [facility] [address] [place] [facility] CBC & DIFF ERYTHROCYT E DISTRIBUTI ON WIDTH [RATIO] BY AUTOMATED COUNT 12.3 11.5 - 14.5 07/09 Specimen Type: BLOOD Comment: Automated Differentia l Performed Ordering Provider: ARISTIDES TRAN Report Released Date/Time: Dec 24, 2022 09:18 AM Reporting Lab: [facility] [address] Performing Lab: [facility] [address] [place] [facility] CBC & DIFF LYMPHOCYTE S [#/VOLUME] IN BLOOD BY AUTOMATED COUNT 1.92 10*3/uL 1.0 - 4.0 07/09 Specimen Type: BLOOD Comment: Automated Differentia l Performed Ordering Provider: ARISTIDES TRAN Report Released Date/Time: Dec 24, 2022 09:18 AM Reporting Lab: [facility] [address] Performing Lab: [facility] [address] [place] [facility] CBC & DIFF MONOCYTES [#/VOLUME] IN BLOOD BY AUTOMATED COUNT 0.31 10*3/uL 0.1 - 1.0 07/09 Specimen Type: BLOOD Comment: Automated Differentia l Performed Ordering Provider: ARISTIDES TRAN Report Released Date/Time: Dec 24, 2022 09:18 AM Reporting Lab: [facility] [address] Performing Lab: [facility] [address] [place] [facility] CBC & DIFF NEUTROPHIL S [#/VOLUME] IN BLOOD BY AUTOMATED COUNT 3.47 10*3/uL 2.0 - 7.7 07/09 Specimen Type: BLOOD Comment: Automated Differentia l Performed Ordering Provider: ARISTIDES TRAN Report Released Date/Time: Dec 24, 2022 09:18 AM Reporting Lab: [facility] [address] Performing Lab: [place] [address] [place] [facility] CBC & DIFF EOSINOPHIL S [#/VOLUME] IN BLOOD BY AUTOMATED COUNT 0.14 10*3/uL 0 - 0.5 07/09 Specimen Type: BLOOD Comment: Automated Differentia l Performed Ordering Provider: ARISTIDES TRAN Report Released Date/Time: Dec 24, 2022 09:18 AM Reporting Lab: [facility] [address] Performing Lab: [place] [address] [place] [facility] CBC & DIFF BASOPHILS [#/VOLUME] IN BLOOD BY AUTOMATED COUNT 0.04 10*3/uL 0 - 0.2 07/09 Specimen Type: BLOOD Comment: Automated Differentia l Performed Ordering Provider: ARISTIDES TRAN Report Released Date/Time: Dec 24, 2022 09:18 AM Reporting Lab: [facility] [address] Performing Lab: [facility] [address] [place] [facility] CBC & DIFF IG(META,MY BELLA,PRO) 0.3 07/09 Specimen Type: BLOOD Comment: Automated Differentia l Performed Ordering Provider: ARISTIDES TRAN Report Released Date/Time: Dec 24, 2022 09:18 AM Reporting Lab: [facility] [address] Performing Lab: [facility] [address] [place] [facility] CBC & DIFF IMMATURE GRANULOCYT ES [PRESENCE] IN BLOOD BY AUTOMATED COUNT 0.02 10*3/uL 0 - 0.1 07/09 Specimen Type: BLOOD Comment: Automated Differentia l Performed Ordering Provider: ARISTIDES TRAN Report Released Date/Time: Dec 24, 2022 09:18 AM Reporting Lab: [facility] [address] Performing Lab: [facility] [address] [facility] COMPREHE NSIVE METABOLI C PANEL+MG CREATININE [MASS/VOLU ME] IN SERUM OR PLASMA 1.0 mg/dL 0.7 - 1.2 07/09 Specimen Type: PLASMA Comment: Elevated triglycerid e result from a non-fasting specimen should be interpreted with caution. A fasting panel is recommended for accurate triglycerid es when trigs are >200 from a non-fasting specimen. Ordering Provider: ARISTIDES TRAN Report Released Date/Time: Dec 24, 2022 09:18 AM Reporting Lab: [facility] [address] Performing Lab: [facility] [address] [facility] COMPREHE NSIVE METABOLI C PANEL+MG UREA NITROGEN [MASS/VOLU ME] IN SERUM OR PLASMA 16 mg/dL 8 - 26 07/09 Specimen Type: PLASMA Comment: Elevated triglycerid e result from a non-fasting specimen should be interpreted with caution. A fasting panel is recommended for accurate triglycerid es when trigs are >200 from a non-fasting specimen. Ordering Provider: ARISTIDES TRAN Report Released Date/Time: Dec 24, 2022 09:18 AM Reporting Lab: [facility] [address] Performing Lab: [facility] [address] [facility] COMPREHE NSIVE METABOLI C PANEL+MG GLUCOSE [MASS/VOLU ME] IN SERUM OR PLASMA 160 mg/dL 70 - 100 07/09 H Specimen Type: PLASMA Comment: Elevated triglycerid e result from a non-fasting specimen should be interpreted with caution. A fasting panel is recommended for accurate triglycerid es when trigs are >200 from a non-fasting specimen. Ordering Provider: ARISTIDES TRAN Report Released Date/Time: Dec 24, 2022 09:18 AM Reporting Lab: [facility] [address] Performing Lab: [facility] [address] [facility] COMPREHE NSIVE METABOLI C PANEL+MG SODIUM [MOLES/VOL UME] IN SERUM OR PLASMA 138 mmol/L 136 - 145 07/09 Specimen Type: PLASMA Comment: Elevated triglycerid e result from a non-fasting specimen should be interpreted with caution. A fasting panel is recommended for accurate triglycerid es when trigs are >200 from a non-fasting specimen. Ordering Provider: ARISTIDES TRAN Report Released Date/Time: Dec 24, 2022 09:18 AM Reporting Lab: [facility] [address] Performing Lab: [facility] [address] [facility] COMPREHE NSIVE METABOLI C PANEL+MG POTASSIUM [MOLES/VOL UME] IN SERUM OR PLASMA 3.7 mmol/L 3.5 - 5.1 07/09 Specimen Type: PLASMA Comment: Elevated triglycerid e result from a non-fasting specimen should be interpreted with caution. A fasting panel is recommended for accurate triglycerid es when trigs are >200 from a non-fasting specimen. Ordering Provider: ARISTIDES TRAN Report Released Date/Time: Dec 24, 2022 09:18 AM Reporting Lab: [facility] [address] Performing Lab: [facility] [address] [place] [facility] COMPREHE NSIVE METABOLI C PANEL+MG CHLORIDE [MOLES/VOL UME] IN SERUM OR PLASMA 101 mmol/L 98 - 107 07/09 Specimen Type: PLASMA Comment: Elevated triglycerid e result from a non-fasting specimen should be interpreted with caution. A fasting panel is recommended for accurate triglycerid es when trigs are >200 from a non-fasting specimen. Ordering Provider: ARISTIDES TRAN Report Released Date/Time: Dec 24, 2022 09:18 AM Reporting Lab: [facility] [address] Performing Lab: [facility] [address] [place] [facility] COMPREHE NSIVE METABOLI C PANEL+MG CARBON DIOXIDE, TOTAL [MOLES/VOL UME] IN SERUM OR PLASMA 28 mmol/L 22 - 29 07/09 Specimen Type: PLASMA Comment: Elevated triglycerid e result from a non-fasting specimen should be interpreted with caution. A fasting panel is recommended for accurate triglycerid es when trigs are >200 from a non-fasting specimen. Ordering Provider: ARISTIDES TRAN Report Released Date/Time: Dec 24, 2022 09:18 AM Reporting Lab: [place] [phone] Performing Lab: [place] [address] [facility] COMPREHE NSIVE METABOLI C PANEL+MG CALCIUM [MASS/VOLU ME] IN SERUM OR PLASMA 9.3 mg/dL 8.4 - 10.2 07/09 Specimen Type: PLASMA Comment: Elevated triglycerid e result from a non-fasting specimen should be interpreted with caution. A fasting panel is recommended for accurate triglycerid es when trigs are >200 from a non-fasting specimen. Ordering Provider: ARISTIDES TRAN Report Released Date/Time: Dec 24, 2022 09:18 AM Reporting Lab: [facility] [address] Performing Lab: [place] [address] [facility] COMPREHE NSIVE METABOLI C PANEL+MG PROTEIN [MASS/VOLU ME] IN SERUM OR PLASMA 7.6 g/dL 6.0 - 8.3 07/09 Specimen Type: PLASMA Comment: Elevated triglycerid e result from a non-fasting specimen should be interpreted with caution. A fasting panel is recommended for accurate triglycerid es when trigs are >200 from a non-fasting specimen. Ordering Provider: ARISTIDES TRAN Report Released Date/Time: Dec 24, 2022 09:18 AM Reporting Lab: [facility] [address] Performing Lab: [place] [address] [facility] COMPREHE NSIVE METABOLI C PANEL+MG ALBUMIN [MASS/VOLU ME] IN SERUM OR PLASMA 4.2 g/dL 3.5 - 5.2 07/09 Specimen Type: PLASMA Comment: Elevated triglycerid e result from a non-fasting specimen should be interpreted with caution. A fasting panel is recommended for accurate triglycerid es when trigs are >200 from a non-fasting specimen. Ordering Provider: ARISTIDES TRAN Report Released Date/Time: Dec 24, 2022 09:18 AM Reporting Lab: [facility] [address] Performing Lab: [facility] [address] [place] [facility] COMPREHE NSIVE METABOLI C PANEL+MG BILIRUBIN. TOTAL [MASS/VOLU ME] IN SERUM OR PLASMA 0.8 mg/dL 0.2 - 1.2 07/09 Specimen Type: PLASMA Comment: Elevated triglycerid e result from a non-fasting specimen should be interpreted with caution. A fasting panel is recommended for accurate triglycerid es when trigs are >200 from a non-fasting specimen. Ordering Provider: ARISTIDES TRAN Report Released Date/Time: Dec 24, 2022 09:18 AM Reporting Lab: [facility] [address] Performing Lab: [facility] [address] [facility] COMPREHE NSIVE METABOLI C PANEL+MG MAGNESIUM [MASS/VOLU ME] IN SERUM OR PLASMA 2.2 mg/dL 1.6 - 2.6 07/09 Specimen Type: PLASMA Comment: Elevated triglycerid e result from a non-fasting specimen should be interpreted with caution. A fasting panel is recommended for accurate triglycerid es when trigs are >200 from a non-fasting specimen. Ordering Provider: ARISTIDES TRAN Report Released Date/Time: Dec 24, 2022 09:18 AM Reporting Lab: [facility] [address] Performing Lab: [facility] [address] [facility] COMPREHE NSIVE METABOLI C PANEL+MG ANION GAP IN SERUM OR PLASMA 9 mmol/L 5 - 15 07/09 Specimen Type: PLASMA Comment: Elevated triglycerid e result from a non-fasting specimen should be interpreted with caution. A fasting panel is recommended for accurate triglycerid es when trigs are >200 from a non-fasting specimen. Ordering Provider: ARISTIDES TRAN Report Released Date/Time: Dec 24, 2022 09:18 AM Reporting Lab: [facility] [address] Performing Lab: [facility] [address] [place] [facility] COMPREHE NSIVE METABOLI C PANEL+MG ALKALINE PHOSPHATAS E [ENZYMATIC ACTIVITY/V OLUME] IN SERUM OR PLASMA 64 U/L 40 - 150 07/09 Specimen Type: PLASMA Comment: Elevated triglycerid e result from a non-fasting specimen should be interpreted with caution. A fasting panel is recommended for accurate triglycerid es when trigs are >200 from a non-fasting specimen. Ordering Provider: ARISTIDES TRAN Report Released Date/Time: Dec 24, 2022 09:18 AM Reporting Lab: [facility] [address] Performing Lab: [facility] [address] [facility] COMPREHE NSIVE METABOLI C PANEL+MG ALANINE AMINOTRANS FERASE [ENZYMATIC ACTIVITY/V OLUME] IN SERUM OR PLASMA 36 U/L <55 - 55 07/09 Specimen Type: PLASMA Comment: Elevated triglycerid e result from a non-fasting specimen should be interpreted with caution. A fasting panel is recommended for accurate triglycerid es when trigs are >200 from a non-fasting specimen. Ordering Provider: ARISTIDES TRAN Report Released Date/Time: Dec 24, 2022 09:18 AM Reporting Lab: [facility] [address] Performing Lab: [facility] [address] [facility] COMPREHE NSIVE METABOLI C PANEL+MG ASPARTATE AMINOTRANS FERASE [ENZYMATIC ACTIVITY/V OLUME] IN SERUM OR PLASMA 26 U/L <34 - 34 07/09 Specimen Type: PLASMA Comment: Elevated triglycerid e result from a non-fasting specimen should be interpreted with caution. A fasting panel is recommended for accurate triglycerid es when trigs are >200 from a non-fasting specimen. Ordering Provider: ARISTIDES TRAN Report Released Date/Time: Dec 24, 2022 09:18 AM Reporting Lab: [facility] [address] Performing Lab: [facility] [address] [facility] COMPREHE NSIVE METABOLI C PANEL+MG GLOMERULAR FILTRATION RATE/1.73 SQ M.PREDICTE D [VOLUME RATE/AREA] IN SERUM, PLASMA OR BLOOD BY CREATININE -BASED FORMULA (CKD-EPI 2020) >90 60 07/09 Specimen Type: PLASMA Comment: Elevated triglycerid e result from a non-fasting specimen should be interpreted with caution. A fasting panel is recommended for accurate triglycerid es when trigs are >200 from a non-fasting specimen. Ordering Provider: ARISTIDES TRAN Report Released Date/Time: Dec 24, 2022 09:18 AM Reporting Lab: [facility] [address] Performing Lab: [facility] [address] [place] [facility] HEMOGLOB IN A1C HEMOGLOBIN A1C/HEMOGL OBIN.TOTAL IN BLOOD 5.2 4.0 - 6.0 07/09 Specimen Type: BLOOD Comment: Values obtained from A1C measurement s can vary. For typical A1C assays, a reported value of 7.0 could actually be between 6.7 and 7.3 if measured by a reference method. A reported value of 9.0 could actually be between 8.7 and 9.3. Ref: http://www. ngsp.org/CA Pdata.asp Ordering Provider: ARISTIDES TRAN Report Released Date/Time: Dec 24, 2022 09:18 AM Reporting Lab: [facility] [address] Performing Lab: [facility] [address] [facility] LIPID PANEL,NO N-FASTIN G CHOLESTERO L [MASS/VOLU ME] IN SERUM OR PLASMA 159 mg/dL <199 - 199 07/09 Specimen Type: PLASMA Comment: Elevated triglycerid e result from a non-fasting specimen should be interpreted with caution. A fasting panel is recommended for accurate triglycerid es when trigs are >200 from a non-fasting specimen. Ordering Provider: ARISTIDES TRNA Report Released Date/Time: Dec 24, 2022 09:18 AM Reporting Lab: [facility] [address] Performing Lab: [facility] [address] [place] [facility] LIPID PANEL,NO N-FASTIN G CHOLESTERO L IN HDL [MASS/VOLU ME] IN SERUM OR PLASMA 34 mg/dL 40 07/09 L Specimen Type: PLASMA Comment: Elevated triglycerid e result from a non-fasting specimen should be interpreted with caution. A fasting panel is recommended for accurate triglycerid es when trigs are >200 from a non-fasting specimen. Ordering Provider: ARISTIDES TRAN Report Released Date/Time: Dec 24, 2022 09:18 AM Reporting Lab: [facility] [address] Performing Lab: [facility] [address] [place] [facility] LIPID PANEL,NO N-FASTIN G CHOLESTERO L IN LDL [MASS/VOLU ME] IN SERUM OR PLASMA BY CALCULATIO N 81 mg/dL <99 - 99 07/09 Specimen Type: PLASMA Comment: Elevated triglycerid e result from a non-fasting specimen should be interpreted with caution. A fasting panel is recommended for accurate triglycerid es when trigs are >200 from a non-fasting specimen. Ordering Provider: ARISTIDES TRAN Report Released Date/Time: Dec 24, 2022 09:18 AM Reporting Lab: [facility] [address] Performing Lab: [facility] [address] [place] [facility] LIPID PANEL,NO N-FASTIN G CHOLESTERO L IN VLDL [MASS/VOLU ME] IN SERUM OR PLASMA BY CALCULATIO N 44 mg/dL <29 - 29 07/09 H Specimen Type: PLASMA Comment: Elevated triglycerid e result from a non-fasting specimen should be interpreted with caution. A fasting panel is recommended for accurate triglycerid es when trigs are >200 from a non-fasting specimen. Ordering Provider: ARISTIDES TRAN Report Released Date/Time: Dec 24, 2022 09:18 AM Reporting Lab: [facility] [address] Performing Lab: [facility] [address] [place] [facility] LIPID PANEL,NO N-FASTIN G CHOLESTERO L NON HDL [MASS/VOLU ME] IN SERUM OR PLASMA 125 mg/dL <129 - 129 07/09 Specimen Type: PLASMA Comment: Elevated triglycerid e result from a non-fasting specimen should be interpreted with caution. A fasting panel is recommended for accurate triglycerid es when trigs are >200 from a non-fasting specimen. Ordering Provider: ARISTIDES TRAN Report Released Date/Time: Dec 24, 2022 09:18 AM Reporting Lab: [facility] [address] Performing Lab: [facility] [address] [place] [facility] LIPID PANEL,NO N-FASTIN G TRIGLYCERI DE [MASS/VOLU ME] IN SERUM OR PLASMA 218 mg/dL <149 - 149 07/09 H Specimen Type: PLASMA Comment: Elevated triglycerid e result from a non-fasting specimen should be interpreted with caution. A fasting panel is recommended for accurate triglycerid es when trigs are >200 from a non-fasting specimen. Ordering Provider: ARISTIDES TRAN Report Released Date/Time: Dec 24, 2022 09:18 AM Reporting Lab: [facility] [address] Performing Lab: [facility] [address] [place] [facility] PSA PROSTATE SPECIFIC AG [MASS/VOLU ME] IN SERUM OR PLASMA 4.06 ng/mL <4.00 - 4.00 07/09 H Specimen Type: SERUM No comment entered. Ordering Provider: ARISTIDES TRAN Report Released Date/Time: Dec 24, 2022 09:29 AM Reporting Lab: [facility] [address] Performing Lab: [facility] [address] [place] [facility] TSH W/REFLEX TO FREE T4 THYROTROPI N [UNITS/VOL UME] IN SERUM OR PLASMA 1.53 u[IU]/mL 0.35 - 4.94 07/09 Specimen Type: PLASMA Comment: Elevated triglycerid e result from a non-fasting specimen should be interpreted with caution. A fasting panel is recommended for accurate triglycerid es when trigs are >200 from a non-fasting specimen. Ordering Provider: ARISTIDES TRAN Report Released Date/Time: Dec 24, 2022 09:18 AM Reporting Lab: [facility] [address] Performing Lab: [facility] [address] [facility] PSA PROSTATE SPECIFIC AG [MASS/VOLU ME] IN SERUM OR PLASMA 4.05 ng/mL <4.00 - 4.00 05/21 H Specimen Type: SERUM No comment entered. Ordering Provider: MAI DE LA CRUZ Report Released Date/Time: May 21, 2023 10:11 AM Reporting Lab: [facility] [address] Performing Lab: [facility] [address] [place] [facility] OCCULT BLOOD FIT X1 SCREEN HEMOGLOBIN .GASTROINT ESTINAL.LO WER [PRESENCE] IN STOOL BY IMMUNOASSA Y Negative 01/04 Specimen Type: FECES No comment entered. Ordering Provider: ARISTIDES TRAN Report Released Date/Time: Dec 24, 2022 09:55 AM Reporting Lab: [facility] [address] Performing Lab: [facility] [address] [place] [facility] URINALYS IS COLOR OF URINE LIGHT-YE LLOW 12/24 Specimen Type: URINE No comment entered. Ordering Provider: ARISTIDES TRAN Report Released Date/Time: Dec 24, 2022 09:18 AM Reporting Lab: [facility] [address] Performing Lab: [facility] [address] [place] [facility] URINALYS IS SPECIFIC GRAVITY OF URINE 1.019 1.003 - 1.035 12/24 Specimen Type: URINE No comment entered. Ordering Provider: ARISTIDES TRAN Report Released Date/Time: Dec 24, 2022 09:18 AM Reporting Lab: [facility] [address] Performing Lab: [facility] [address] [place] [facility] URINALYS IS BILIRUBIN. TOTAL [PRESENCE] IN URINE BY TEST STRIP NEGATIVE 12/24 Specimen Type: URINE No comment entered. Ordering Provider: ARISTIDES TRAN Report Released Date/Time: Dec 24, 2022 09:18 AM Reporting Lab: [facility] [address] Performing Lab: [facility] [address] [place] [facility] URINALYS IS KETONES [MASS/VOLU ME] IN URINE BY TEST STRIP NEGATIVE 12/24 Specimen Type: URINE No comment entered. Ordering Provider: ARISTIDES TRAN Report Released Date/Time: Dec 24, 2022 09:18 AM Reporting Lab: [facility] [address] Performing Lab: [facility] [address] [place] [facility] URINALYS IS GLUCOSE [MASS/VOLU ME] IN URINE BY TEST STRIP NEGATIVE mg/dL 12/24 Specimen Type: URINE No comment entered. Ordering Provider: ARISTIDES TRAN Report Released Date/Time: Dec 24, 2022 09:18 AM Reporting Lab: [facility] [address] Performing Lab: [facility] [address] [place] [facility] URINALYS IS PROTEIN [MASS/VOLU ME] IN URINE BY TEST STRIP NEGATIVE mg/dL 12/24 Specimen Type: URINE No comment entered. Ordering Provider: ARISTIDES TRAN Report Released Date/Time: Dec 24, 2022 09:18 AM Reporting Lab: [facility] [address] Performing Lab: [facility] [address] [place] [facility] URINALYS IS PH OF URINE BY TEST STRIP 5.5 5.0 - 8.0 12/24 Specimen Type: URINE No comment entered. Ordering Provider: ARISTIDES TRAN Report Released Date/Time: Dec 24, 2022 09:18 AM Reporting Lab: [facility] [address] Performing Lab: [facility] [address] [place] [facility] URINALYS IS LEUKOCYTES [#/AREA] IN URINE SEDIMENT BY MICROSCOPY HIGH POWER FIELD 1 /[HPF] 0 - 7 12/24 Specimen Type: URINE No comment entered. Ordering Provider: ARISTIDES TRAN Report Released Date/Time: Dec 24, 2022 09:18 AM Reporting Lab: [facility] [address] Performing Lab: [facility] [address] [place] [facility] URINALYS IS BACTERIA [PRESENCE] IN URINE SEDIMENT BY LIGHT MICROSCOPY NONE SEEN 12/24 Specimen Type: URINE No comment entered. Ordering Provider: ARISTIDES TRAN Report Released Date/Time: Dec 24, 2022 09:18 AM Reporting Lab: [facility] [address] Performing Lab: [facility] [address] [place] [facility] URINALYS IS ERYTHROCYT ES [#/AREA] IN URINE SEDIMENT BY MICROSCOPY HIGH POWER FIELD 1 /[HPF] 0 - 3 12/24 Specimen Type: URINE No comment entered. Ordering Provider: ARISTIDES TRAN Report Released Date/Time: Dec 24, 2022 09:18 AM Reporting Lab: [facility] [address] Performing Lab: [facility] [address] [place] [facility] URINALYS IS APPEARANCE OF URINE CLEAR 12/24 Specimen Type: URINE No comment entered. Ordering Provider: ARISTIDES TRAN Report Released Date/Time: Dec 24, 2022 09:18 AM Reporting Lab: [facility] [address] Performing Lab: [facility] [address] [place] [facility] URINALYS IS EPITHELIAL CELLS.SQUA MOUS [#/AREA] IN URINE SEDIMENT BY MICROSCOPY HIGH POWER FIELD NONE SEEN/[HP F] 12/24 Specimen Type: URINE No comment entered. Ordering Provider: ARISTIDES TRAN Report Released Date/Time: Dec 24, 2022 09:18 AM Reporting Lab: [facility] [address] Performing Lab: [facility] [address] [place] [facility] URINALYS IS HEMOGLOBIN [PRESENCE] IN URINE BY TEST STRIP 1+ 12/24 Specimen Type: URINE No comment entered. Ordering Provider: ARISTIDES TRAN Report Released Date/Time: Dec 24, 2022 09:18 AM Reporting Lab: [facility] [address] Performing Lab: [facility] [address] [place] [facility] URINALYS IS NITRITE [PRESENCE] IN URINE BY TEST STRIP NEGATIVE 12/24 Specimen Type: URINE No comment entered. Ordering Provider: ARISTIDES TRAN Report Released Date/Time: Dec 24, 2022 09:18 AM Reporting Lab: [facility] [address] Performing Lab: [facility] [address] [place] [facility] URINALYS IS LEUKOCYTE ESTERASE [PRESENCE] IN URINE BY TEST STRIP NEGATIVE 12/24 Specimen Type: URINE No comment entered. Ordering Provider: ARISTIDES TRAN Report Released Date/Time: Dec 24, 2022 09:18 AM Reporting Lab: [facility] [address] Performing Lab: [facility] [address] [place] [facility] HEAVY METAL PANEL, RANDOM URINE CREATININE [MASS/VOLU ME] IN URINE 121 mg/dL 20 - 320 12/24 Specimen Type: URINE Comment: Results are below reportable range for this analyte, which is 10 mcg/L. Reference Range: Nonexposed Adult: < or = 35 mcg/g creatinine Biological Exposure Index (end of shift/work week): < or = 50 mcg/g creatinine This test was developed and its analytical performance characteris tics have been determined by [employer] [place], [place]. It has not been cleared or approved by the U.S. Food and Drug Administrat ion. This assay has been validated pursuant to the CLIA regulations and is used for clinical purposes. Results are below reportable range for this analyte, which is 10 mcg/L. Reference Range: Nonexposed Adult: <10 mcg/g creatinine This test was developed and its analytical performance characteris tics have been determined by [employer] [place], [place]. It has not been cleared or approved by the U.S. Food and Drug Administrat ion. This assay has been validated pursuant to the CLIA regulations and is used for clinical purposes. Results are below reportable range for this analyte, which is 4 mcg/L. Reference Range: Nonexposed Adults: < or = 4 mcg/g creatinine Biological Exposure Index (preshift): < or = 35 mcg/g creatinine This test was developed and its analytical performance characteris tics have been determined by [employer] [place], [place]. It has not been cleared or approved by the U.S. Food and Drug Administrat ion. This assay has been validated pursuant to the CLIA regulations and is used for clinical purposes. Test Performed by [employer] [place], [employer] [place], [address] [place], [place] Manuel Dacosta M.D., Ph.D., Director of Laboratorie s , CLIA [id number] Ordering Provider: ARISTIDES TRAN Report Released Date/Time: Dec 24, 2022 10:09 AM Reporting Lab: [facility] [address] Performing Lab: [address] [place] [facility] HEAVY METAL PANEL, RANDOM URINE ARSENIC/CR EATININE [MASS RATIO] IN URINE None Detected 12/24 Specimen Type: URINE Comment: Results are below reportable range for this analyte, which is 10 mcg/L. Reference Range: Nonexposed Adult: < or = 35 mcg/g creatinine Biological Exposure Index (end of shift/work week): < or = 50 mcg/g creatinine This test was developed and its analytical performance characteris tics have been determined by [employer] [place], [place]. It has not been cleared or approved by the U.S. Food and Drug Administrat ion. This assay has been validated pursuant to the CLIA regulations and is used for clinical purposes. Results are below reportable range for this analyte, which is 10 mcg/L. Reference Range: Nonexposed Adult: <10 mcg/g creatinine This test was developed and its analytical performance characteris tics have been determined by [employer] [place], [place]. It has not been cleared or approved by the U.S. Food and Drug Administrat ion. This assay has been validated pursuant to the CLIA regulations and is used for clinical purposes. Results are below reportable range for this analyte, which is 4 mcg/L. Reference Range: Nonexposed Adults: < or = 4 mcg/g creatinine Biological Exposure Index (preshift): < or = 35 mcg/g creatinine This test was developed and its analytical performance characteris tics have been determined by [employer] [place], [place]. It has not been cleared or approved by the U.S. Food and Drug Administrat ion. This assay has been validated pursuant to the CLIA regulations and is used for clinical purposes. Test Performed by [employer], [employer] [place], [address] [place] [address] Manuel Dacosta M.D., Ph.D., Director of Laboratorie s , CLIA [id number] Ordering Provider: ARISTIDES TRAN Report Released Date/Time: Dec 24, 2022 10:09 AM Reporting Lab: [facility] [address] Performing Lab: [address] [place] [facility] HEAVY METAL PANEL, RANDOM URINE LEAD/CREAT ININE [MASS RATIO] IN URINE None Detected 12/24 Specimen Type: URINE Comment: Results are below reportable range for this analyte, which is 10 mcg/L. Reference Range: Nonexposed Adult: < or = 35 mcg/g creatinine Biological Exposure Index (end of shift/work week): < or = 50 mcg/g creatinine This test was developed and its analytical performance characteris tics have been determined by [employer] [place], [place]. It has not been cleared or approved by the U.S. Food and Drug Administrat ion. This assay has been validated pursuant to the CLIA regulations and is used for clinical purposes. Results are below reportable range for this analyte, which is 10 mcg/L. Reference Range: Nonexposed Adult: <10 mcg/g creatinine This test was developed and its analytical performance characteris tics have been determined by [employer] [place]. It has not been cleared or approved by the U.S. Food and Drug Administrat ion. This assay has been validated pursuant to the CLIA regulations and is used for clinical purposes. Results are below reportable range for this analyte, which is 4 mcg/L. Reference Range: Nonexposed Adults: < or = 4 mcg/g creatinine Biological Exposure Index (preshift): < or = 35 mcg/g creatinine This test was developed and its analytical performance characteris tics have been determined by [employer] [place], [place]. It has not been cleared or approved by the U.S. Food and Drug Administrat [employer]. This assay has been validated pursuant to the CLIA regulations and is used for clinical purposes. Test Performed by [employer], [employer] [place], [address] [place] [address] Manuel Dacosta M.D., Ph.D., Director of Laboratorie s , CLIA [id number] Ordering Provider: ARISTIDES TRAN Report Released Date/Time: Dec 24, 2022 10:09 AM Reporting Lab: [facility] [address] Performing Lab: [address] [place] [facility] HEAVY METAL PANEL, RANDOM URINE MERCURY/CR EATININE [MASS RATIO] IN URINE None Detected 12/24 Specimen Type: URINE Comment: Results are below reportable range for this analyte, which is 10 mcg/L. Reference Range: Nonexposed Adult: < or = 35 mcg/g creatinine Biological Exposure Index (end of shift/work week): < or = 50 mcg/g creatinine This test was developed and its analytical performance characteris tics have been determined by [employer] [place], [place]. It has not been cleared or approved by the U.S. Food and Drug Administrat ion. This assay has been validated pursuant to the CLIA regulations and is used for clinical purposes. Results are below reportable range for this analyte, which is 10 mcg/L. Reference Range: Nonexposed Adult: <10 mcg/g creatinine This test was developed and its analytical performance characteris tics have been determined by [employer] [place], [place]. It has not been cleared or approved by the U.S. Food and Drug Administrat ion. This assay has been validated pursuant to the CLIA regulations and is used for clinical purposes. Results are below reportable range for this analyte, which is 4 mcg/L. Reference Range: Nonexposed Adults: < or = 4 mcg/g creatinine Biological Exposure Index (preshift): < or = 35 mcg/g creatinine This test was developed and its analytical performance characteris tics have been determined by [employer] [place], [place]. It has not been cleared or approved by the U.S. Food and Drug Administrat ion. This assay has been validated pursuant to the CLIA regulations and is used for clinical purposes. Test Performed by [employer] [place], [employer] [place], [address] [place] [address] Manuel Dacosta M.D., Ph.D., Director of Laboratorie s , CLIA [id number] Ordering Provider: ARISTIDES TRAN Report Released Date/Time: Dec 24, 2022 10:09 AM Reporting Lab: [place] [address] Performing Lab: [facility] [address] [facility] [address] [place] [facility] Vital Signs Combined list of inpatient and outpatient Vital Signs from Department of Defense and Veterans Affairs, ranging from 12 months to all on record, depending upon the facility. Vital Sign Value Date Comments Source Encounters Combined list of: 1) Encounters from Department of Veterans Affairs facilities going back up to thelast 18 months. 2) Encounters from the Department of Defense facilities going back up to 280 months. Location Location Details Encounter Type Encounter Number Reason For Visit Attending Provider ADM Date DC Date Status Disposition Source Theater Facility OUTPATIENT [id number] Theater Provider 11/07 Released w/o Limitations Theater Facilit [place] [address](AFN G [address]) OUTPATIENT [id number] Notes Entered by: CEFERINO ABBOTT 21 Nov 2017 1028 ------- ------- ------- ------- -- Tri Service ILYA THOMPSON 11/21 Released w/o Limitations [facility] [place] [address](A FNG [address]) [place] [address](AFN G [address]FM) OUTPATIENT [id number] Notes Entered by: MARILEE KIMBALL 21 Oct 2018 1221 ------- ------- ------- ------- -- ILYA THOMPSON 10/21 Released w/o Limitations [facility] [place] [address](A FNG [address]) [place] [address](AFN G [address]FM) OUTPATIENT [id number] Notes Entered by: MARILEE KIMBALL 21 Oct 2018 1225 ------- ------- ------- ------- -- ILYA THOMPSON 10/21 Released w/o Limitations [facility] [place] [address](A FNG [address]) [place] [address](AFN G [address]) OUTPATIENT [id number] Notes Entered by: MARILEE KIMBALL 25 Oct 2019 1714 ------- ------- ------- ------- -- PHAQ ILYA KIMBALL 10/24 Released w/o Limitations [facility] [place] [address](A FNG [address]) [facility] BERRY Roberto TRAY-P YONGTAEK( [facility] [place] ) OUTPATIENT [id number] Notes Entered by: ELIZABETH ALMEIDA 28 Oct 2019 0853 ------- ------- ------- ------- -- INCHEON FLIGHT [place] 10/26 Immediate Referral [facility]CO LAMBGOOD -PYONGT AEK([facility] [place]) [facility] BERR[facility] Roberto TRAY-P YONGTAEK( [facility] [place] ) OUTPATIENT [id number] Notes Entered by: MUSHTAQ DICKENS 08 Nov 2019 0735 ------- ------- ------- ------- -- RETEST- - 12 [place] 11/06 Immediate Referral [facility]CO FELIZ -PYONGT AEK([facility] [place]) [facility] BERRY Roberto TRAY-P YONGTAEK( [facility] [place] ) OUTPATIENT [id number] Notes Entered by: Jeanette PUGH 05 Dec 2019 1645 ------- ------- ------- ------- -- QUARANT INE EXIT TEST [place] 12/04 Immediate Referral MARCO FELIZ -SAIMAT AEK([facility] [place]) [facility] B[facility]Y D TRAY-P YONGTAVANESSA( Hearing Program [facility]) OUTPATIENT [id number] dilcia pedersen/jc espinoza needs copy of test DEANDRE ZHANG 11/10 Released w/o Limitations MARCO FELIZ -ELEAZAR WELDON(Hea ring Program [facility]) MARCO FELIZ-P KYLE( Immunizat ions [facility]) OUTPATIENT [id number] Notes Entered by: Paul HAYDEN 11 Nov 2020 0856 ------- ------- ------- ------- -- td CARMEN HAYDEN 11/10 Released w/o Limitations MARCO WELDON(Imm unizati ons [facility]) [facility]( [facility] [place]) OUTPATIENT [id number] Notes Entered by: ELIZABETH MUHAMMAD 05 Mar 2021 1325 ------- ------- ------- ------- -- COVID-1 9 ROM Exit Test LOIS CHENG 03/05 Released w/o Limitations [place]([facility] [place]) [facility]( Immunizat ions - [facility]) OUTPATIENT [id number] Notes Entered by: ARELI SANTIAGO 03 Apr 2021 1512 ------- ------- ------- ------- -- COVID/P SERGE COTA 04/03 [place] w/o Limitations [place](Immun [facility]( [facility]) OUTPATIENT [id number] 7 MED REFILL/ ESTABLI CARE 070.326 6.1976 DAGOBERTO MACDONALD 05/26 [place]ased w/o Limitations [place]([facility] [place]) [facility]( [facility]) OUTPATIENT [id number] bp med refill/ /070.32 66.9176 JENNIFER STOUT 06/11 Released w/o Limitations [place] Magali newell([facility] [place]) [place] [facility] Outpatient Encounter [id number] YUKI EVANGELISTA Geoff 12/03 [facility] MH HEALTH ASSESS BY NON-MD [phone] Diagnos is: ICD-10- CM Z71.89 Other specifi ed drug and alcohol counsellor ing<br/ > CLEMENTEPEGGY CARRILLO 12/05 [facility] Outpatient Encounter [id number] 12/24 [facility] OFFICE O/P NEW MOD 45-59 MIN [id number] [id number] Diagnos is: ICD-10- CM M25.569 Pain in unspeci fied knee
OSWALDO TRAN 12/24 [facility] Outpatient Encounter [id number] 12/24 [facility] PT EVAL LOW COMPLEX 20 MIN [id number] [id number] Diagnos is: ICD-10- CM M54.50 Low back pain, unspeci fied
LAURIE WORKAMN P 12/24 [facility] MANUAL THERAPY 1/> [facility] [id number] [id number] Diagnos is: ICD-10- CM M54.50 Low back pain, unspeci fied
LAURIE WORKMAN P 01/04 [facility] Outpatient Encounter [id number] 01/10 [facility] [place] [facility] Outpatient Encounter [id number] 01/10 [facility] THERAPEUTI C EXERCISES [id number] [id number] Diagnos is: ICD-10- CM M54.50 Low back pain, unspeci fied
LAURIE WORKMAN P 01/11 [facility] Outpatient Encounter [id number] 01/14 [facility] HEMOGLOBIN [id number] Diagnos is: ICD-10- CM Z77.9 Oth contact w and (suspec joanna) exposur es hazardo us to health< br/> LORIN LI E 01/14 [facility] Outpatient Encounter [id number] 02/01 [facility] EVOKED AUDITORY TST COMPLETE [id number] [id number] Diagnos is: ICD-10- CM Z01.118 Encntr for exam of ears and hearing w oth abnorma l finding s
MICHAEL COWAN 02/05 [facility] PHYSICAL PERFORMANC E TEST [id number] Diagnos is: ICD-10- CM M54.50 Low back pain, unspeci fied
LAURIE WORKMAN P 02/15 [facility] Outpatient Encounter [id number] 02/28 [facility] THERAPEUTI C EXERCISES [phone] Diagnos is: ICD-10- CM M54.50 Low back pain, unspeci fied
LAURIE WORKMAN P 03/01 [facility] HEARING SERVICE [id number] Diagnos is: ICD-10- CM Z46.1 Encount er for fitting and adjustm ent of hearing aid<br/ > DONMICHAEL VILLEGAS 03/21 [facility] Outpatient Encounter [phone] Dayne LUIS 04/01 [facility] Outpatient Encounter [id number] [id number] Diagnos is: ICD-10- CM J01.90 Acute sinusit is, unspeci fied
ARMIN VALENTE TAMMY H 04/01 [facility] SELF CARE MNGMENT TRAINING [id number] [phone] Diagnos is: ICD-10- CM M54.50 Low back pain, unspeci fied
MARCGUILLERMOTERI Best A 04/08 [facility] OFF/OP EST MAY X REQ PHY/QHP [id number] [phone] Diagnos is: ICD-10- CM Z71.89 Other specifi ed drug and alcohol counsellor ing<br/ > ELWOJCIECHINGSolangeOLE M 04/08 [facility] SELF CARE MNGMENT TRAINING 73167-7 [phone] Diagnos is: ICD-10- CM M54.50 Low back pain, unspeci fied
LAURIE WORKMAN P 05/17 [facility] OFFICE O/P EST MOD 30 MIN [phone] Diagnos is: ICD-10- CM J45.20 Mild intermi ttent asthma, uncompl icated< br/> GISELLE DE LA CRUZ E 05/21 [facility] QNHP OL DIG ASSMT&MGMT 5-10 [id number] [id number] Diagnos is: ICD-10- CM J45.20 Mild intermi ttent asthma, uncompl icated< br/> Jeanette SNYDERE R 05/21 [facility] Outpatient Encounter [id number] 05/21 [facility] SELF-MGMT EDUC & TRAIN 1 PT [phone] Diagnos is: ICD-10- CM R52 Pain, unspeci fied
SARAI PEREZ 05/22 [place] [facility] OFF/OP CNSLTJ NEW/EST MOD 40 [phone] Diagnos is: ICD-10- CM N40.1 Benign prostat ic hyperpl lawson with lower urinary tract symp
ARTEMIO,KADI EN L 06/04 [place] [facility] [place] [facility] Outpatient Encounter [id number] 06/06 [place] [facility] [place] [facility] Outpatient Encounter [id number] 06/18 [place] [facility] Outpatient Encounter [id number] 07/02 [place] [facility] OFFICE O/P EST SF 10 MIN [id number] [id number] Diagnos is: ICD-10- CM N40.1 Benign prostat ic hyperpl lawson with lower urinary tract symp
ARTEMIOKADI EN L 07/09 [place] [facility] Outpatient Encounter [id number] 07/09 [facility] OFF/OP EST MAY X REQ PHY/QHP [id number] [id number] Diagnos is: ICD-10- CM Z71.9 Filler Sifter Helper ing, unspeci fied
NURYS KWON 07/09 [facility] Outpatient [facility]counter [id number] 07/12 [place] [facility] [place] [facility] Outpatient Encounter [id number] Diagnos is: ICD-10- CM I71.20 Thoraci c aortic aneurys m, without rupture , unspeci fied
ELFERING,N ICOLE M 07/12 [facility] OFFICE O/P EST HI 40 MIN [id number] [id number] Diagnos is: ICD-10- CM I71.21 Aneurys m of the ascendi ng aorta, without rupture
GUICHO-RIGO TEIXEIRA 07/12 [facility] PSYTX W PT 45 MINUTES [id number] [id number] Diagnos is: ICD-10- CM F43.21 Adjustm ent disorde r with depress ed mood
PAULAMARYMARY MOFFETT Alexandra 08/20 [facility] PSYTX W PT 30 MINUTES [id number] [id number] Diagnos is: ICD-10- CM F43.21 Adjustm ent disorde r with depress ed mood
SAJAN MARY Alexandra 09/16 [facility] WEIGHT MGMT CLASS [id number] [id number] Diagnos is: ICD-10- CM E66.9 Obesity , unspeci fied
LEN BLACKBURN 09/17 [facility] Outpatient Encounter [id number] 10/01 [facility] OFFICE O/P EST MOD 30 MIN [id number] [id number] Diagnos is: ICD-10- CM I71.20 Thoraci c aortic aneurys m, without rupture , unspeci fied
GUICHO-PORTE RRIGO 10/10 [facility] WEIGHT MGMT CLASS [id number] [id number] Diagnos is: ICD-10- CM E66.9 Obesity , unspeci fied
LEN BLACKBURN 10/22 [facility] Outpatient Encounter [id number] [id number] 10/27 [facility] Outpatient Encounter [id number] [id number] 10/28 [facility] Outpatient Encounter [id number] [id number] 10/28 [facility] PSYTX W PT 30 MINUTES 79330-5.61 [id number] Diagnos is: ICD-10- CM F43.21 Adjustm ent disorde r with depress ed mood
MARY MOELLER 10/28 [facility] [employer] [id number] [id number] Diagnos is: ICD-10- CM Z71.9 Filler Sifter Helper ing, unspeci fied
WENDIE DE LA CRUZ ICA D 11/03 [facility] [place] [facility] Outpatient Encounter [id number] 11/10 [facility] [place] [facility] Outpatient Encounter [id number] [id number] 11/10 [facility] [place] [facility] Outpatient Encounter [id number] [id number] 11/11 [facility] [place] [facility] Outpatient Encounter [id number] 11/12 [facility] [place] [facility] Outpatient Encounter [id number] [id number] 11/13 [facility] [place] [facility] Outpatient Encounter [id number] [id number] 11/14 [facility] Procedures Combined list of: 1) Procedures from [facility] facilities going back up to thelast 18 months, not all [place] non-surgical procedures are included; 2) All procedures from the Department of Defense facilities. Procedure Procedure Type Code Date Perfomer Comments Sour e Presumptive Culture For Single Organisms Presumptive Culture For Single Organisms 84113 ALKA VALDES Collect COVID sample from nares now. [facility] Presumptive Culture For Single Organisms Presumptive Culture For Single Organisms 97387 ELIZABETH DUGAN [facility] Presumptive Culture For Single Organisms Presumptive Culture For Single Organisms 19934 MANI PUGH Collect COVID 19 sample from one naris now. [facility] Threshold Audiogram (Pure Tone) Automated Threshold Audiogram (Pure Tone) Automated [id number] [facility] Patient education, not otherwise cla ified, non-physician provider, group, per se ion [facility] Hearing service, miscellaneous LE[facility] Patient Counseling Medical Management [facility] Patients Patient Counseling Medical Management [facility] Patients [address] LEATHA [facility] Ear mold/insert, not disposable, any type [facility]HA [facility] Td Vaccine Preservative Free, Adsorbed Td Vaccine Preservative Free, Adsorbed 56148 CARMEN HAYDEN Td (adult), adsorbed; Series #: 1; 0.5 mL; IM; Right Arm; Mfg: [employer]; Lot: [id number]; VIS given (Arpita: 08/19/2019). DoD Immunization Administration By Injection, One Vaccine Immunization Administration By Injection, One Vaccine 09563 CARMEN HAYDEN [facility] Vaccine SARS-CoV-2 mRNA-LNP Luiz Protein Preservative Free 30mcg/0.3mL Diluent Reconstituted IM Vaccine SARS-CoV-2 mRNA-LNP Luiz Protein Preservative Free 30mcg/0.3mL [place] [address] YADIRA SANTIAGO COVID-19, 30 mcg/0.3 mL dose (Pfizer 12+ years); Series #: 1; 0.3 mL; IM; Left Arm; Mfg: [employer]; Lot: [id number]; VIS given (Arpita: 01/09/2021). [facility] Vacc SARS-CoV-2 mRNA-LNP Luiz Protein Preservative Free 30mcg/0.3mL Diluent Reconstituted IM First Dose Vacc SARS-CoV-2 mRNA-LNP Luiz Protein Preservative Free 30mcg/0.3mL Diluent Reconstituted IM First Dose 0001A YADIRA SANTIAGO DoD IMMUNIZATION ADM,INTRAMUSCULAR INJ,SEVERE AC RESPIRATORY SYNDROME CORONAVIR 2 (SARSCOV-2) (CORONAVIR DIS [COVID-19]) VACC,MRNALNP,SPIKE PROT,PRESRV FREE,30 MCG/0.3ML DOS,DILUENT RECONSTITUT;1ST DOSE [facility] IMMUNIZATION ADMINISTRATION (INCLUDES PERCUTANEOUS, INTRADERMAL, SUBCUTANEOUS, OR INTRAMUSCULAR INJECTIONS); 1 VACCINE (SINGLE OR COMBINATION VACCINE/TOXOID) [facility] EAR MOLD/INSERT, NOT DISPOSABLE, ANY TYPE [facility] VENIPUNCTURE,AGE 4 YEARS/OLDER,NECESS ITATING THE SKILL OF A PHYSICIAN/OTHER QUALIFIED HEALTH MACHINE MAINTENANCE REPAIRER (SEP PROC),FOR DIAGNOSTIC/THERAPE UTIC PURPOSES (NOT TO BE USED FOR ROUTINE VENIPUNCTURE) 002 [facility] No data available for this section Ambulato ry Pharmacy Social History Combined list of available smoking, tobacco, and other social history from Department of Defense and Veterans Affairs facilities. Social History Type Response Date Comment Sourc e Tobacco smoking status NHIS [facility]CO FOR[facility]ER [facility] of [facility] History of tobacco use [place]-TOBACCO FORMER USER 12/24/2022 [facility] This section is an empty social history section. DoD Assessment and Plan Combined list of future care activities from Department of Defense and Veterans Affairs facilities (e.g., assessment and plan notes, appointments, orders, and referrals). Additional future care activities may be listed in the Plan of Care section. Result Assessment and Plan Date Source Assessment and Plan No data available for this section 11/18/2023 Ambulatory Pharmacy Plan of Care List of future care activities from Department of Veterans Affairs facilities. Additional future care activities may be listed in the Assessment and Plan section. Date/Time Care Activity Care Activity Detail Facili ty 11/18/2023 AMBULATORY - NONE AMBULATORY - NONE [facility] 11/19/2023 AMBULATORY - NONE AMBULATORY - NONE [facility] 11/19/2023 AMBULATORY - NONE AMBULATORY - NONE [facility] 11/20/2023 AMBULATORY - MEDICINE AMBULATORY - MEDICI [facility] 11/20/2023 AMBULATORY - NONE AMBULATORY - NONE [facility] 11/22/2023 AMBULATORY - NONE AMBULATORY - NONE [facility] 11/25/2023 AMBULATORY - NONE AMBULATORY - NONE [facility] 11/26/2023 AMBULATORY - NONE AMBULATORY - NONE [facility] 11/26/2023 AMBULATORY - REHAB MEDICINE AMBULATORY - REHAB MEDICINE [facility] 12/03/2023 AMBULATORY - NONE AMBULATORY - NONE [facility] 12/04/2023 AMBULATORY - MEDICINE AMBULATORY - MEDICI NE [facility] 12/10/2023 AMBULATORY - NONE AMBULATORY - NONE [facility] 12/13/2023 AMBULATORY - MEDICINE AMBULATORY - MEDICI [facility] 12/17/2023 AMBULATORY - NONE AMBULATORY - NONE [facility] 12/24/2023 AMBULATORY - NONE AMBULATORY - NONE [facility] 12/25/2023 AMBULATORY - MEDICINE AMBULATORY - MEDICI [facility] 12/31/2023 AMBULATORY - NONE AMBULATORY - NONE [facility] 01/07/2024 AMBULATORY - NONE AMBULATORY - NONE [facility] 01/08/2024 AMBULATORY - MEDICINE AMBULATORY - MEDICI [facility] 01/22/2024 AMBULATORY - MEDICINE AMBULATORY - MEDICI [facility] 10/23/2023 Consult Order COMMUNITY CARE-ECHOCARDIOGRAPHY Cons Hospital Monitor's Choice [facility] 12/25/2023 Laboratory - Chemistry Order URINALYSIS U RINE WC [facility] Functional Status Combined list of recent functional and cognitive assessments recorded at Department of Defense and Veterans Affairs (VA).MI Functional [place] Measurement (FIM) Scale: 1 = Total Assistance (Subject = 0% +), 2 = Maximal Assistance (Subject = 25% +), 3 = Moderate Assistance (Subject = 50% +), 4 = Minimal Assistance (Subject = 75% +), 5 = Supervision, 6 = Modified [place] (Device), 7 = Complete [place] (Timely, Safely). Assessment Date/Time Source Assessment Type Assessment Skill Assessment Score Assessment Details No data available for this section
--- OUTSIDE RECORDS SUMMARY | 2023-11-18 10:17 | XMS_ITS | Encounter Summary ---
Author Name [facility] [place] Address [address] [place] [address] Care Team Providers Care Design Engineering Specialist Name Role Phone RIGO RUSSO Primary Care Provider Tolu mckeon Insurance Providers: All historical and current Section [...] GN SERVI CE BENE Mar 29, 2019 [id number] [phone] Jonh SANCHEZ PATIENT [employer] ([employer]) PRESCRIPT ION FOREI GN SERVI CE Mar 29, 2019 [id number] [phone] Jonh SANCHEZ PATIENT Selected Encounter This section includes the information on record at [place] for the Encounter. Date/Time Encounter Type Encounter Description Reason Pro vider Source Dec 24, 2022 11:16 AM Outpatient Encounter CLINICAL PHARMACY I[facility] Encounter Template Text not used by [place] Plan of Treatment: Future Appointments (+ 6 months) and Future Tests (+/- 45 days) The Plan of Treatment section includes future care activities for the patient from all [place] treatmentfacilities. This section includes future appointments and future orders which are active, pending or scheduled. Future Appointments This section includes appointments that were scheduled to occur 6 months from the date of the Encounter, up to a maximum of 20 appointments. The data comes from all [place] treatment facilities. Appointment Date/Time Appointment Type Appointme nt Facility Name Jan 04, 2023 08:30 AM [facility]ORY - NONE [place] [facility] Jan 04, 2023 09:00 AM AMBULATORY - REHAB MEDICIN E [facility] Jan 04, 2023 11:15 AM [facility] NONE [place] [facility] [facility] Jan 10, 2023 07:00 AM [facility]ONE [place] [facility] Jan 11, 2023 09:00 AM AMBULATORY - REHAB MEDICIN E [facility] Jan 14, 2023 08:00 AM [place]IC[place] [facility] Feb 01, 2023 02:00 PM AM[facility]ORY - NONE [place] [facility] Feb 05, 2023 08:45 AM [place] SURGERY [place] [facility] Feb 15, 2023 02:00 PM AMBULATORY - REHAB MEDICIN E [facility] Mar 01, 2023 09:30 AM AMBULATORY - REHAB MEDICIN E [facility] Mar 21, 2023 08:45 AM AMBULATORY - SURGERY [facility] Apr 01, 2023 01:00 PM AMBULATORY - MEDICINE [facility] Apr 08, 2023 10:30 AM AMBULATORY - REHAB MEDICIN E [facility] May 17, 2023 03:00 PM AMBULATORY - REHAB MEDICIN E [facility] May 21, 2023 09:30 AM [facility] May 21, 2023 11:00 AM [facility] Jun 04, 2023 11:00 AM AMBULATORY - SURGERY [facility] Active, Pending, and Scheduled Orders This section includes a listing of several types of active, pending, and scheduled orders, including clinic medications orders, diagnostic test orders, procedure orders and consult orders; where the start date of the order is 45 days before the date of the Encounter or 45 days after the date of theEncounter. The data comes from all [facility]. Test Date/Time Test Type Test Details Facility Name Dec 24, 2022 12:00 AM Laboratory - Chemistry Order COVID-19 SCREENING PANEL (CEPHEID) NASOPHARYNGEAL SWAB Nasopharyngeal SP ONCE [facility] Lab Results: +/- 30 days of the encounter This section includes the Chemistry and Hematology Lab Results on record with [facility] for the patient. Radiology Reports and Pathology Reports are provided separately, in subsequent sections. Lab Results This section contains the Chemistry/Hematology Results that were resulted 30 days before or 30 daysafter the date of the Encounter. Date/Time Source Result Type Result - Unit Interpretation Reference Range Comment Jan 04, 2023 01:44 PM [facility] OCCULT BLOOD FIT X1 SCREEN Specimen Type: FECES No comment entered. Ordering Provider: ARISTIDES TRAN Report Released Date/Time: Dec 24, 2022 09:55 AM Reporting Lab: [facility] [id number] Performing Lab: [facility] [id number] OCCULT BLOOD (FIT) #1 OF 1 Negative Negative Dec 24, 2022 11:30 AM [facility] URINALYSIS Specimen Type: URINE No comment entered. Ordering Provider: ARISTIDES TRAN Report Released Date/Time: Dec 24, 2022 09:18 AM Reporting Lab: [facility] [phone] Performing Lab: [facility] [id number] URINE COLOR LIGHT-YELLOW SPECIFIC GRAVITY 1.019 1.003-1.03 [...] NEGATIVE NEGATIVE Dec 24, 2022 11:30 AM [facility] HEAVY METAL PANEL, RANDOM URINE Specimen Type: URINE Comment: Results are below reportable range for this analyte, which is 10 mcg/L. Reference Range: Nonexposed Adult: < or = 35 mcg/g creatinine Biological Exposure Index (end of shift/work week): < or = 50 mcg/g creatinine This test was developed and its analytical performance characteristics have been determined by [email or web address] [place], [place]. It has not been cleared or approved by the U.S. Food and Drug Administration. This assay has been validated pursuant to the CLIA regulations and is used for clinical purposes. Results are below reportable range for this analyte, which is 10 mcg/L. Reference Range: Nonexposed Adult: <10 mcg/g creatinine This test was developed and its analytical performance characteristics have been determined by [email or web address] [place], [place]. It has not been cleared or [...] analytical performance characteristics have been determined by [employer] [place], [place]. It has not been cleared or approved by the U.S. Food and Drug Administration. This assay has been validated pursuant to the CLIA regulations and is used for clinical purposes. Test Performed by [facility], [email or web address] [facility], [address] [place] [address] Manuel Dacosta M.D., Ph.D., Director of Laboratories , CLIA [id number] Ordering Provider: ARISTIDES TRAN Report Released Date/Time: Dec 24, 2022 10:09 AM Reporting Lab: [facility] [id number] Performing Lab: [address] .CREAT,URINE 121 mg/dL 20-320 .ARSENIC, UR RAN None Detected .LEAD, UR RAN None Detected .MERCURY, UR RAN None Detected Dec 24, 2022 11:00 AM [facility] COMPREHENSIVE METABOLIC PANEL+MG Specimen Type: PLASMA No comment entered. Ordering Provider: ARISTIDES TRAN Report Released Date/Time: Dec 24, 2022 09:18 AM Reporting Lab: [facility] [id number] Performing Lab: [facility] [id number] CREATININE 1.0 mg/dL 0.7-1.2 UREA NITROGEN 16 [...] >90 >60 Dec 24, 2022 11:00 AM [facility] LIPID PANEL,NON-FASTING Specimen Type: PLASMA No comment entered. Ordering Provider: ARISTIDES TRAN Report Released Date/Time: Dec 24, 2022 09:18 AM Reporting Lab: [facility] [phone] Performing Lab: [facility] [address] CHOLESTEROL 140 mg/dL <199 .HDL 36 mg/dL L >40 LDL CALCULATION 82 mg/dL <99 VLDL CALCULATION 22 mg/dL <29 NON HDL CHOLESTEROL 104 mg/dL <129 TRIG(NON FASTING) 112 mg/dL <149 Dec 24, 2022 11:00 AM [facility] TSH W/REFLEX TO FREE T4 Specimen Type: PLASMA No comment entered. Ordering Provider: ARISTIDES TRAN Report Released Date/Time: Dec 24, 2022 09:18 AM Reporting Lab: [facility] [phone] Performing Lab: [facility] [address] TSH 1.45 u[IU]/mL 0.35-4.94 Dec 24, 2022 11:00 AM [facility] CBC & DIFF Specimen Type: BLOOD Comment: Automated Differential Performed Ordering Provider: ARISTIDES TRAN Report Released Date/Time: Dec 24, 2022 09:18 AM Reporting Lab: [facility] [id number] Performing Lab: [facility] [address] WBC 6.39 10*3/uL 4.0-11.0 RBC 5.21 10*6/uL [...] 10*3/uL 0-0.1 Dec 24, 2022 11:00 AM [facility] PSA Specimen Type: SERUM No comment entered. Ordering Provider: ARISTIDES TRAN Report Released Date/Time: Dec 24, 2022 09:29 AM Reporting Lab: [facility] [address] Performing Lab: [facility] [phone] PSA 4.85 ng/mL H <4.00 Dec 24, 2022 11:00 AM [facility] HEMOGLOBIN A1C Specimen Type: BLOOD Comment: Values [...] Dec 24, 2022 09:18 AM Reporting Lab: [facility] [phone] Performing Lab: [facility] [address] HEMOGLOBIN A1C 5.0 4.0-6.0 Dec 24, 2022 11:00 AM [facility] ANTI-HEP C(EIA) Specimen Type: SERUM No comment entered. Ordering Provider: ARISTIDES TRAN Report Released Date/Time: Dec 24, 2022 09:55 AM Reporting Lab: [facility] [phone] Performing Lab: [facility] [address] [facility] [address] ANTI-HEP C(EIA) NEGATIVE NEGATIVE Vital Signs: All taken on the encounter date This section contains inpatient and outpatient Vital Signs collected on the date of the Encounter. Date/Time Temperature Pulse Blood Pressure Respiratory Rate SP02 Pain Height Weight Body Mass Index Source Dec 24, 2022 09:09 AM 146/92 mm[Hg] [facility] Dec 24, 2022 08:54 AM 97.5 F 81 /min 142/91 mm[Hg] 16 /min 99 % 2 73 in 266.9 lb 35 [facility] Social History: Smoking Status (Most current) and Tobacco Use (All prior to encounter date) This section includes the most current, and the historical, smoking and tobacco- related health factors from the [place] facility where the Encounter took place. Current Smoking Status This section includes the most current smoking, or tobacco-related health factor, from the [place] facility where the Encounter took place. Date/Time Current Smoking Status Comment Facil ity Dec 24, 2022 09:00 AM [place]-TO[place]AC[place] FORMER USER [facility] Tobacco Use History This section includes a history of the smoking, or tobacco-related health factors, that were collected on or before the date of the Encounter. The data comes from the [place] facility where the Encounter took place. Date/Time Smoking Status/Tobacco Use Comment F acility Dec 24, 2022 09:00 AM [place]-TO[place]AC[place] QUIT 15 YRS OR MORE [facility] Radiology Reports: +/- 30 days of the [...] the Encounter. The data comes from all [place] treatment facilities. Date/Time Radiology Report Provider Source Jan 04, 2023 11:[address] (C) CHEST (P): CARINA SANCHEZ Sonu [id number] -1975 M Exm Date: JAN 04, 2023@11:10 Req Phys: ARISTIDES RTAN Pat Loc: [facility] PACT INDIGO PD WH 4D (Req' Img Loc: CT IMAGING Service: Unknown (Case [id number] COMPLETE) CT (C) CHEST W/O CONTRAST (CT Detailed) CPT:80300 Reason for Study: Post Deployment Dyspnea on exertion/Multiple Airborne Hazard Exp Clinical History: HRCT- Post Deployment Dyspnea on exertion/Multiple Airborne Hazard Exposures [place] IS NOT under investigation for COVID-19 or is COVID-19 negative Defer to radiologist for final CT protocol. Responsible provider name and phone number to notify for critical findings if other than user placing the order and pager listed below: User placing orders pager: [phone] LAST 3: No data available for: CREATININE .CREAT EGFR(CKD-EPI) ESTIMATED GFR(eGFR) Allergies: ([place] only) Patient has answered NKA Report Status: Verified Date Reported: JAN 04, 2023 Date Verified: JAN 04, 2023 [employer] E-Sig:/ES/PERFECTO REDDING MD Report: CT chest without [...] Interpreting Staff: PERFECTO REDDING MD, STAFF RADIOLOGIST ([employer]der) /NRM PERFECTO REDDING [facility] Jan 04, 2023 11:[address] SINUSES (P): CARINA SANCHEZ Sonu [id number] -1975 M Exm Date: JAN 04, 2023@11:09 Req Phys: ARISTIDES TRAN Pat Loc: [facility] PACT INDIGO PD WH 4D (Req' Img Loc: CT IMAGING Service: Unknown (Case [id number] COMPLETE) CT MAXILLOFACIAL W/O CONTRAST (CT Detailed) CPT:05898 Reason for Study: Chronic Nasal Obstruction Clinical History: Post Deployment Chronic Nasal Obstruction/Multiple Airborne Hazard Exposures IS NOT under investigation for COVID-19 or is COVID-19 negative Defer to radiologist for final CT protocol. Responsible provider name and phone number to notify for critical findings if other than user placing the order and pager listed below: User placing orders pager: [phone] LAST 3: No data available for: CREATININE .CREAT EGFR(CKD-EPI) ESTIMATED GFR(eGFR) Allergies: ([place] only) Patient has answered NKA Report Status: Verified Date Reported: JAN 04, 2023 Date Verified: JAN 04, 2023 Thermite [employer]der E-Sig:/ES/DIEGO BUSBY MD Report: CT SINUSES WITHOUT [...] Primary Interpreting Staff: DIEGO BUSBY MD, RADIOLOGIST ([employer]mite [employer]der) /ILYA RESENDIZ [facility] Jan 04, 2023 08:28 AM HAND RIGHT 3 VIEWS OR MORE: CARINA SANCHEZ Sonu [id number] -1975 M Exm Date: JAN 04, 2023@08:28 Req Phys: ARISTIDES TRAN Pat Loc: [facility] PACT INDIGO PD WH 4D (Req' Img Loc: MAIN X-RAY Service: Unknown (Case [id number] COMPLETE) HAND RIGHT 3 VIEWS OR MORE (RAD Detailed) CPT:03911 Proc Modifiers : RIGHT Reason for Study: Right hand 3rd finger pain/trauma Clinical History: [place] IS NOT under investigation for COVID-19 or is COVID-19 negative Right hand 3rd finger pain/trauma Responsible provider name and phone number to notify for critical findings if other than user placing the order and pager listed below: User placing orders pager: [phone] LAST CREATININE 1.0 (12/24/22) Report Status: Verified Date Reported: JAN 04, 2023 Date Verified: JAN 04, 2023 Thermite [employer]der E-Sig:/ES/JUAN PIERRE MD Report: PROCEDURE: HAND RIGHT 3 VIEWS OR MORE INDICATION: Trauma. COMPARISON: None. FINDINGS: 3 views of the right hand demonstrate normal mineralization and alignment. No fracture or dislocation. No suspicious bony sclerosis or periosteal reaction. No radiopaque foreign body. Impression: No acute osseous abnormality. Primary Interpreting Staff: JUAN PIERRE MD, STAFF RADIOLOGIST ([employer]mite [employer]der) /SHP JUAN PIERRE [facility] Dec 24, 2022 10:46 AM CHEST 2 VIEWS PA AND LAT: CARINA SANCHEZ [id number] -1975 M Ex Date: DEC 24, 2022@10:46 Req Phys: ARISTIDES TRAN Pat Loc: [facility] PACT INDIGO PD WH 4D (Req' Img Loc: MAIN X-RAY Service: Unknown (Case [id number] COMPLETE) CHEST 2 VIEWS PA AND LAT (RAD Detailed) CPT:89494 Reason for Study: Post Deployment Dyspnea on exertion/Multiple Airborne Hazard Exp Clinical History: [place] IS NOT under investigation for COVID-19 or is COVID-19 negative Post Deployment Dyspnea on exertion/Multiple Airborne Hazard Exposures Responsible provider name and phone number to notify for critical findings if other than user placing the order and pager listed below: User placing orders pager: [phone] LAST CREATININE____ Report Status: Verified Date Reported: DEC 24, 2022 Date Verified: DEC 24, 2022 Thermite Welder E-Sig:/ES/JUAN PIERRE MD Report: CHEST, 2 VIEW INDICATION: Dyspnea on exertion. COMPARISON: None. FINDINGS: PA and lateral views of the chest demonstrate adequate inflation of the lungs. No focal consolidation, pneumothorax or effusion. Cardiomediastinal silhouette is within normal limits. There are no acute osseous findings. Impression: No acute cardiopulmonary findings. Primary Interpreting Staff: JUAN PIERRE MD, STAFF RADIOLOGIST (Thermite Welder) /SHP JUAN PIERRE [facility] Encounter Notes: All associated encounter notes This section contains the clinical notes associated to the Encounter. Date/Time Encounter Note(s) Provider Source Dec 24, 2022 11:16 AM EDUCATION NOTE: LOCAL TITLE: EDUCATION MEDICATION INSTRUCTION STANDARD TITLE: EDUCATION NOTE DATE OF NOTE: DEC 24, 2022@11:16 ENTRY DATE: DEC 24, 2022@11:16:18 AUTHOR: HERBERT TAM EXP COSIGNER: URGENCY: STATUS: COMPLETED MEDICATION EDUCATION PARTICIPANTS: Patient TEACHING STRATEGY: Face to Face READINESS TO LEARN: No barriers identified LEARNING NEEDS/OBJECTIVES Participant(s) indicates readiness to learn and has been instructed on indications, side effects, and directions for use. Participant(s) will receive medication information sheets for medications filled. Education included discussion of the following: New medication(s): METOPROLOL, ETODOLAC, TAMSULOSIN, SILDENAFIL, HCTZ/TRIAMTERENE PATIENT/FAMILY RESPONSE (OUTCOME): Verbalizes critical information about the topic FOLLOW-UP RECOMMENDED: None needed Active Outpatient Medications (including Supplies): Outpatient Medications Status 1) ETODOLAC 200MG CAP TAKE ONE CAPSULE BY MOUTH THREE ACTIVE TIMES A DAY FOR PAIN 2) HCTZ 25/TRIAMTERENE 37.5MG TAB TAKE 1 TABLET BY MOUTH ACTIVE EVERY DAY FOR BLOOD PRESSURE 3) METOPROLOL SUCCINATE 25MG SA TAB TAKE ONE TABLET BY ACTIVE MOUTH EVERY DAY FOR BLOOD PRESSURE 4) SILDENAFIL CITRATE 100MG TAB TAKE ONE TABLET BY MOUTH ACTIVE (S) NEEDED FOR ERECTILE DYSFUNCTION 5) TAMSULOSIN HCL 0.4MG CAP TAKE ONE CAPSULE BY MOUTH AT ACTIVE BEDTIME FOR PROSTATE /es/ HERBERT TAM PharmD, BCGP, MSCS Outpatient Clinic Pharmacist Signed: 12/24/2022 11:17 HERBERT TAM [facility]
--- OUTSIDE RECORDS SUMMARY | 2023-11-18 10:18 | XMS_ITS | Encounter Summary ---
Author Name [facility] [place] Address [address] [place] [address] Care Team Providers Care Senior Air Director Name Role Phone RIGO RUSSO Primary Care [...] GN SERVI CE BENE Mar 29, 2019 [id number] Jonh SANCHEZ PATIENT [employer] ([employer]) PRESCRIPT ION FOREI GN SERVI CE Mar 29, 2019 [id number] [phone] Jonh SANCHEZ PATIENT Selected Encounter This section includes the information on record at [place] for the Encounter. Date/Time Encounter Type Encounter Description Reason Provider Source Mar 01, 2023 09:30 AM THERAPEUTIC EXERCISES PHYSICAL THERAPY ICD-10-CM M54.50 Low back pain, unspecified CICI WORKMAN HER P IHE Encounter Template Text not used by [place] Assessments - Encounter Diagnoses This section includes the primary and secondary diagnoses documented for the Encounter. Date/Time Primary/Secondary Diagnosis Diagnosis Name Provider Source Mar 01, 2023 10:06 AM PRIMARY Low back pain, unspecified MANI WORKMAN P [facility] Plan of Treatment: Future Appointments (+ 6 [...] 20 appointments. The data comes from all [facility]. Appointment Date/Time Appointment Type Appointme nt Facility Name Mar 21, 2023 08:45 AM AMBULATORY - SURGERY [facility] Apr 01, 2023 01:00 PM [facility]ICINE [facility] Apr 08, 2023 10:30 AM AMBULATORY - REHAB MEDICIN E [facility] May 17, 2023 03:00 PM AMBULATORY - REHAB MEDICIN E [facility] May 21, 2023 09:30 AM AMBULATORY - MEDICINE [facility] May 21, 2023 11:00 AM AMBULATORY - NONE [facility] Jun 04, 2023 11:00 AM AMBULATORY - SURGERY [facility] Jul 02, 2023 11:15 AM [facility] Jul 09, 2023 12:30 PM AMBULATORY - NONE [facility] Jul 09, 2023 02:30 PM AMBULATORY - SURGERY [facility] Jul 12, 2023 01:30 PM [facility] Aug 08, 2023 01:00 PM [facility] Aug 21, 2023 08:00 AM AMBULATORY - PSYCHIATRY IN [facility] Social History: Smoking Status (Most current) and Tobacco Use (All prior to encounter date) This section includes the most current, and the historical, smoking and tobacco- related health factors from the [place] facility where the Encounter took place. Current Smoking Status This section includes the most current smoking, or tobacco-related health factor, from the [place] facility where the Encounter took place. Date/Time Current Smoking Status Comment Facil ity Dec 24, 2022 09:00 AM [place]-TOBACCO FORMER USER [facility] Tobacco Use History This section includes a history of the smoking, or tobacco-related health factors, that were collected on or before the date of the Encounter. The data comes from the [place] facility where the Encounter took place. Date/Time Smoking Status/Tobacco Use Comment F acility Dec 24, 2022 09:00 AM VA-TOBACCO QUIT 15 YRS OR MORE [facility] Encounter Notes: All associated encounter notes This section contains the clinical notes associated to the Encounter. Date/Time Encounter Note(s) Provider Source Mar 01, 2023 07:48 AM PHYSICAL THERAPY N OTE: LOCAL TITLE: PT-PROGRESS NOTE STANDARD TITLE: PHYSICAL THERAPY NOTE DATE OF NOTE: MAR 01, 2023@07:48 ENTRY DATE: MAR 01, 2023@07:48:32 AUTHOR: MANUEL WORKMAN EXP COSIGNER: URGENCY: STATUS: COMPLETED PT tx: 25 minutes therapeutic exercise PT dx: Low back and R knee pain Evaluation Date: Dec # of VISITS: 5 # of CX/NS: 0 Preferred name: Carina SUBJECTIVE: Reports having no significant back pain to speak of since being seen last. Feels he probably just needs to get in general shape and overall better physical condition to improve his symptoms. Has been performing the exercises with his son. Feels like it has been beneficial for both of them. Has not perform the exercises in the last few days as he jumped into a pool and tweaked his rib. This is feeling better now however. Allen Screening due: No Patient's Goal: Improve low back and knee. _ OBJECTIVE: Verbal permission obtained before all palpation Observation: Normal gait and transfers throughout visit. _ PT INTERVENTIONS: risks/benefits reviewed and verbal consent obtained for interventions Ther ex: Access Code: [email or web address] URL: [email or web address] Date: 03/01/2023 Prepared by: Manuel Workman Newly initiated: - Supine 90/90 Alternating Heel Touches with Posterior Pelvic Tilt - 1 x daily - 7 x weekly - 1 sets - 10-20 reps - 3 hold - Hamstring Curl Bridge with TRX - 1 x daily - 7 x weekly - 2 sets - 15 reps - 3 hold - Mountain Climber with TRX - 1 x daily - 7 x weekly - 2 sets - 15 reps - 3 hold - Atomic Push-Up with TRX - 1 x daily - 7 x weekly - 2 sets - 15 reps - 3 hold Reviewed - PPT + knee extensions, 10-20 repetitions per side x5-second hold, 1 time per day -Baby step bridges, 10-20 repetitions, 1 time per day - Side Plank on Elbow - 1 x daily - 3 x weekly - 2 sets - 10-20 reps - 3 hold Education on HEP (sets, reps, frequency and appropriate response/progression for exercise) Response to Treatment: Fatigue but no significant pain throughout visit. _ GOALS: 1. Pt will be I in HEP for self-management of low back and knee pain in 8-10 weeks - CONT 2. Pt will improve PROMIS 6b score by 5 points in order to demonstrate a meaningful reduction in LBP and associated disability in 8 weeks. - CONT 3. Patient will demonstrate a single-leg squat to 60 degrees at the knee without aberrant movement pattern or increase in symptoms in order to improve his ability to negotiate stairs more easily in 8 weeks. - CONT 4. Patient will demonstrate 100% of age expected lumbar rotation in order to improve his ability to enter and exit his vehicle more easily in 8 weeks. - Met _ ASSESSMENT: 47-year-old male seen primarily for chronic low back pain. Patient appears to be gradually progressing based on strength tolerance. Good ongoing adherence and anticipate excellent prognosis as strength continues to improve. No significant low back pain to speak of this visit. Plan: Continue 1-2 additional visits. Finally strengthening and reassess endurance testing. Patient Education on Treatment Plan: PT role, POC, rehab expectations. Patient indicated readiness to learn, verbalizes understanding, agreement and satisfaction with the treatment plan. Denies further questions. /william/ MANUEL WORKMAN Physical Therapist Signed: 03/01/2023 10:08 MANUEL WORKMAN [facility]
--- OUTSIDE RECORDS SUMMARY | 2023-11-18 10:18 | XMS_ITS | Encounter Summary ---
Author Name [facility] [place] Organization [place] Address [address] [place] [id number] Care Team Providers Care Radio Repair Teacher Name Role Phone RIGO RUSSO Primary Care [...] GN SERVI CE BENE Mar 29, 2019 [id number] [phone] Jonh SANCHEZ PATIENT [facility] ([employer] [facility]) PRESCRIPT ION FOREI GN SERVI CE Mar 29, 2019 [id number] Jonh SANCHEZ PATIENT Selected Encounter This section includes the information on record at [place] for the Encounter. Date/Time Encounter Type Encounter Description Reason Provider Source Feb 05, 2023 08:45 AM EVOKED AUDITORY TST COMPLETE AUDIOLOGY ICD-10-CM Z01.118 Encntr for exam of ears and hearing w oth abnormal findings АНДРЕЙ COWAN E Encounter Template Text not used by [place] Assessments - Encounter Diagnoses This section includes the primary and secondary diagnoses documented for the Encounter. Date/Time Primary/Secondary Diagnosis Diagnosis Name Provider Source Feb 05, 2023 10:00 AM PRIMARY Encntr for exam of ears and hearing w oth abnormal findings АНДРЕЙ COWAN [facility] Feb 05, 2023 10:00 AM SECONDARY Tinnitus, bilateral АНДРЕЙ COWAN [facility] Plan of Treatment: Future Appointments (+ 6 months) and Future Tests (+/- 45 days) The Plan of Treatment section includes future care activities for the patient from all [place] [facility] This section includes future appointments and future orders which are active, pending or scheduled. Future Appointments This section includes appointments that were scheduled to occur 6 months from the date of the Encounter, up to a maximum of 20 appointments. The data comes from all [facility]. Appointment Date/Time Appointment Type Appointme nt Facility Name Feb 15, 2023 02:00 PM AMBULATORY - REHAB MEDICIN E [facility] Mar 01, 2023 09:30 AM AMBULATORY - REHAB MEDICIN E [facility] Mar 21, 2023 08:45 AM AMBULATORY - SURGERY [facility] Apr 01, 2023 01:00 PM AMBULATORY - MEDICINE [facility] Apr 08, 2023 10:30 AM AMBULATORY - REHAB MEDICIN E [facility] May 17, 2023 03:00 PM AMBULATORY - REHAB MEDICIN E [facility] May 21, 2023 09:30 AM AMBULATORY - MEDICINE [facility] May 21, 2023 11:00 AM AMBULATORY - NONE [facility] Jun 04, 2023 11:00 AM AMBULATORY - SURGERY [facility] Jul 02, 2023 11:15 AM AMBULATORY - NONE [facility] Jul 09, 2023 12:30 PM [facility] Jul 09, 2023 02:30 PM AMBULATORY - SURGERY [facility] Jul 12, 2023 01:30 PM AMBULATORY - MEDICINE [facility] Active, Pending, and Scheduled Orders This section includes a listing of several types of active, pending, and scheduled orders, including clinic medications orders, diagnostic test orders, procedure orders and consult orders; where the start date of the order is 45 days before the date of the Encounter or 45 days after the date of theEncounter. The data comes from all [facility]. Test Date/Time Test Type Test Details Facility Name Dec 24, 2022 12:00 AM Laboratory - Chemistry Order COVID-19 SCREENING PANEL (CEPHEID) NASOPHARYNGEAL SWAB Nasopharyngeal SP ONCE [facility] Social History: Smoking Status (Most current) and Tobacco Use (All prior to encounter date) This section includes the most current, and the historical, smoking and tobacco- related health factors from the [place] facility where the Encounter took place. Current Smoking Status This section includes the most current smoking, or tobacco-related health factor, from the [place] facility where the Encounter took place. Date/Time Current Smoking Status Comment Iva ity Dec 24, 2022 09:00 AM VA-TOBACCO FORMER USER [facility] Tobacco Use History This section includes a history of the smoking, or tobacco-related health factors, that were collected on or before the date of the Encounter. The data comes from the [place] facility where the Encounter took place. Date/Time Smoking Status/Tobacco Use Comment F acility Dec 24, 2022 09:00 AM VA-TOBACCO QUIT 15 YRS OR MORE [facility] Encounter Notes: All associated encounter notes This section contains the clinical notes associated to the Encounter. Date/Time Encounter Note(s) Provider Source Feb 05, 2023 07:29 AM AUDIOLOGY NOTE: LOCAL TITLE: AUDIOLOGY CLINIC NOTE STANDARD TITLE: AUDIOLOGY NOTE DATE OF NOTE: FEB 05, 2023@07:29 ENTRY DATE: FEB 05, 2023@07:29:48 AUTHOR: ARIEL COWAN COSIGNER: URGENCY: STATUS: COMPLETED DIAGNOSIS: Encounter for examination of ears and hearing Tinnitus - bilateral REASON FOR VISIT: HEARING EVALUATION AND HEARING AID SELECTION, 60 MINUTES: was seen in the clinic today for a comprehensive audiologic evaluation, hearing aid selection, and counseling utilizing a standard curriculum (30 minutes). LOCATION OF VISIT (ROOM NUMBER): 113 Personal Protective Equipment (PPE): PPE is no longer required by [place] protocol. Masks were not worn as neither provider nor had concerning symptoms, were high risk or requested that masks be worn. The is new to this clinic. The is NOT Service Connected for Hearing Loss / Tinnitus. was unaccompanied. The has never worn hearing aids before. HISTORY: [place]'s history of noise exposure: The served in [employer] from [employer] - 2020. He was exposed to noise from aircraft engines, generators, machinery, vehicles, flightline noise, gunfire. He wore double hearing protection as required. 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 Gradual Onset [ X ] Tinnitus, Both Ears. Intermittent. Onset: ~8 years ago [ X ] Vertigo/Dizziness/Imbalan ce. [place] reports that he has high blood pressure which may contribute/cause the lightheadedness. He also has a history of migraines. He denies vertigo. [ X ] Otalgia with the itching [ X ] Aural Fullness with the itching [ X ] Family History of Hearing Loss [ X ] Itching Ear Canals [ X ] Ear infections as a child; outgrew them Pt Denies: - Otorrhea - Head Trauma - Otosurgery Veterans Reported Hearing Concerns: [ ] One-on-One Conversations [ X ] Lecture [place]/Auditorium/Scientologist [ X ] Restaurants/Background Noise [ X ] Radio/Television [ X ] Group Situations [ X ] Phone - uses iPhone [ X ] Family/Wifes voice [ X ] Workplace/Meetings [ X ] Car/Driving PROCEDURES: OTOSCOPY: Both Ears: Free of excessive cerumen. Normal anatomy bilaterally. TYMPANOMETRY: RIGHT EAR: Type A Pressure: Normal Compliance: Normal Volume: Normal LEFT EAR: Type A Pressure: Normal Compliance: Normal Volume: Normal IMMITTANCE: RIGHT EAR: 500Hz 1000Hz 2000Hz 4000Hz Ipsilateral: 100 85 80 85 Contralateral: 90 90 95 100 LEFT EAR: 500Hz 1000Hz 2000Hz 4000Hz Ipsilateral: 90 80 80 80 Contralateral: NR 95 90 90 DPOAEs (DISTORTION PRODUCT OTOACOUSTIC EMISSIONS): RIGHT EAR: PASS < 7500 Hz (A passing result is consistent with good outer hair cell integrity and no greater than a mild hearing loss for those corresponding frequencies). LEFT EAR: PASS < 7500 Hz (A passing result is consistent with good outer hair cell integrity and no greater than a mild hearing loss for those corresponding frequencies). AUDIOMETRICS: Air conduction, bone conduction and speech testing were completed bilaterally. Transducer: Supra-aural headphones Reliability: Good RIGHT EAR (Hz) 250 988 928 8456 1500 2000 3000 4000 6000 8000 Air: 15 15 15 5 0 15 5 5 Bone: 15 15 15 10 20 LEFT EAR (Hz) 250 041 915 2174 1500 2000 3000 4000 6000 8000 Air: 15 15 15 15 10 20 15 25 Bone: 15 15 15 10 20 See Audiogram Display under Tools ?? AUDIOLOGY ?? ROES or see [facility] Database - All thresholds are in dB HL * = Masked Threshold SRT: Spondees RIGHT EAR: 10 dB HL LEFT EAR: 10 dB HL Pure tone results were consistent with speech unix systems administrator thresholds. WORD RECOGNITION: / - word list RIGHT EAR: 96% Level: 80* dB LEFT EAR: 100% Level: 80* dB QUICKSIN: 1.75 dB Axayhv-Tc-Rntfh Ratio (SNR) loss binaurally The QuickSIN is a measurement of the ability to hear and understand in the presence of background noise. A score of 1.75 dB is consistent with normal ability to understand sentences in the presence of background noise. SUMMARY: QuickSIN demonstrates normal ability to understand words in the presence of background noise. There was slight asymmetry at 8000 Hz, worse in the left ear. RIGHT EAR: Within normal limits 250 - 8000 Hz with normal word recognition ability (96%). Tympanogram was within normal limits, consistent with normal middle ear function. Acoustic reflexes were essentially present ipsilaterally & contralaterally. DPOAEs PASSED <7500 Hz, demonstrating good outer hair cell integrity. LEFT EAR: Within normal limits 250 - 8000 Hz with normal word recognition ability (96%). Tympanogram was within normal limits, consistent with normal middle ear function. Acoustic reflexes were essentially present ipsilaterally & contralaterally. DPOAEs PASSED <7500 Hz, demonstrating good outer hair cell integrity. AMPLIFICATION: - John is a fair candidate for hearing aid use but is motivated to improve his hearing. - was counseled on his type, degree and configuration of hearing loss using a standard curriculum. - Different styles/technologies were reviewed with consideration given to veterans listening situations and lifestyle needs. is interested in rechargeable SOL hearing aids. - The has good vision, memory, and dexterity for hearing aid use. Counseling (30 minutes) - [place] counseled using a standard curriculum on realistic expectations associated with adjusting to hearing aids, use of the devices, VA procedures and trial period. - [place] counseled using a standard curriculum on effective communication strategies such as maintaining face to face contact when speaking, eliminating background noise when possible, and talking at a close distance. - [place] has an iPhone smartphone and is interested in the bluetooth connectivity features of the hearing aid. HEARING AIDS ORDERED: - GNRESOUND OMNIA 960-R SOL HEARING AIDS (champagne, size 2LP receivers, medium open domes) were selected and ordered today. - Accessories ordered: none (has iPhone) PLAN: 1. will be scheduled for a 60-minute hearing aid fitting appointment. 2. will return for 30-minute f/u 1 month after fitting. 3. Regular follow-up recommended to monitor for changes in hearing, or as medically indicated. 4. To help with the itching, recommended mineral oil 2-3 drops per ear 2-4 times a month and cleaning ear canal with soap and water, using only his finger to apply soap to the outer ear and canal. Rinse out in shower. IS IN AGREEMENT WITH THIS PLAN /william/ Marti BRADLEY, CCC-A REPRODUCTIVE HEALTHCARE ASSISTANT Signed: 02/05/2023 10:00 ARIEL COWAN [facility]
--- OUTSIDE RECORDS SUMMARY | 2023-11-18 10:19 | XMS_ITS | Encounter Summary ---
Author Name [facility] [place] Address [address] [place] [address] Care Team Providers Care Supervisor Shipping Name Role Phone RIGO RUSSO Primary Care Provider Unavail le Insurance Providers: All historical and current Section Date Range: From patient's date of to the date document was created. This section includes the names of all active insurance providers for the patient. Insurance Provider Type of Coverage Plan Name Start of Policy Coverage End of Policy Coverage Group Number Member ID Insurance Provider's Telephone Number Policy Mogran's Name Patient's Relationship to Policy Morgan [employer] ([place]) POINT OF SERVICE FOREI GN SERVI CE BENE Mar 29, 2019 [id number] [phone] Jonh SANCHEZ PATIENT [employer] ([employer]) PRESCRIPT ION FOREI GN SERVI CE Mar 29, 2019 [id number] [phone] Jonh SANCHEZ PATIENT Selected Encounter This section includes the information on record at [place] for the Encounter. Date/Time Encounter Type Encounter Description Reason Provider Source Apr 08, 2023 10:30 AM SELF CARE MNGMENT TRAINING PHYSICAL THERAPY ICD-10-CM M54.50 Low back pain, unspecified [facility]ST[facility] TRAN IHE Encounter Template Text not used by [place] Assessments - Encounter Diagnoses This section includes the primary and secondary diagnoses documented for the Encounter. Date/Time Primary/Secondary Diagnosis Diagnosis Name Provider Source Apr 08, 2023 10:59 AM PRIMARY Low back pain, unspecified MANI WORKMAN [facility] Plan of Treatment: Future Appointments (+ 6 months) and Future Tests (+/- 45 days) The Plan of Treatment section includes future care activities for the patient from all [place] treatmentfacilities. This section includes future appointments and future orders which are active, pending or scheduled. Future Appointments This section includes appointments that were scheduled to occur 6 months from the date of the Encounter, up to a maximum of 20 appointments. The data comes from all [facility]. Appointment Date/Time Appointment Type Appointme nt Facility Name May 17, 2023 03:00 PM AMBULATORY - REHAB MEDICIN E [facility] May 21, 2023 09:30 AM [facility] May 21, 2023 11:00 AM AMBULATORY - NONE [facility] Jun 04, 2023 11:00 AM AMBULATORY - SURGERY [facility] Jul 02, 2023 11:15 AM [facility] Jul 09, 2023 12:30 PM [facility] Jul 09, 2023 02:30 PM AMBULATORY - SURGERY [facility] Jul 12, 2023 01:30 PM [facility] Aug 08, 2023 01:00 PM [facility] Aug 21, 2023 08:00 AM [facility] Sep 17, 2023 11:00 AM AM[facility] [facility] September 18, 2023 12:00 PM AMBULATORY - MEDICINE [facility] Social History: Smoking Status (Most current) and Tobacco Use (All prior to encounter date) This section includes the most current, and the historical, smoking and tobacco- related health factors from the [place] facility where the Encounter took place. Current Smoking Status This section includes the most current smoking, or tobacco-related health factor, from the [place] facility where the Encounter took place. Date/Time Current Smoking Status Comment Facil ity Dec 24, 2022 09:00 AM VA-TOBACCO FORMER USER [facility] Tobacco Use History This section includes a history of the smoking, or tobacco-related health factors, that were collected on or before the date of the Encounter. The data comes from the [place] facility where the Encounter took place. Date/Time Smoking Status/Tobacco Use Comment F acility Dec 24, 2022 09:00 AM [place]-TOBACCO QUIT 15 YRS OR MORE [facility] Encounter Notes: All associated encounter notes This section contains the clinical notes associated to the Encounter. Date/Time Encounter Note(s) Provider Source Apr 08, 2023 10:32 AM ADVANCE DIRECTIVE: LOCAL TITLE: AD NOTIFICATION AND SCREENING STANDARD TITLE: ADVANCE DIRECTIVE DATE OF NOTE: APR 08, 2023@10:32 ENTRY DATE: APR 08, 2023@10:33 AUTHOR: CONNOR FRIED EXP COSIGNER: URGENCY: STATUS: COMPLETED ADVANCE DIRECTIVE NOTIFICATION: Patient was given written notification of the following rights: 1. Accept or refuse any medical treatment. 2. Complete a durable power of corporate associate attorney for health care. 3. Complete a living will. ADVANCE DIRECTIVE SCREENING: Does patient have an Advance Directive? The patient does not have an Advance Directive. The patient does not wish to create an Advance Directive for health care. /es/ CONNOR FRIED MEDICAL SUPPORT ASSISTAT Signed: 04/08/2023 10:33 CONNOR FRIED [facility] Apr 08, 2023 07:55 AM PHYSICAL THERAPY N OTE: LOCAL TITLE: PT-PROGRESS NOTE STANDARD TITLE: PHYSICAL THERAPY NOTE DATE OF NOTE: APR 08, 2023@07:55 ENTRY DATE: APR 08, 2023@07:55:38 AUTHOR: DIEGO WORKMAN EXP COSIGNER: URGENCY: STATUS: COMPLETED PT tx: 15 minutes self-care PT dx: Low back and R knee pain Evaluation Date: Dec # of VISITS: 6 # of CX/NS: 0 Preferred name: Carina SUBJECTIVE: Reports he has been struggling with an upper respiratory infection for about the last 3 weeks. Does not seem to be going away. Already spoke with the front end web designer and is going to see the nurse for a brief visit after today's appointment. Today's appointment because he wanted to see primary care, but felt guilty just canceling the appointment. Reports he has not performed his exercises whatsoever due to being ill. Expresses some concern regarding some groin pain he has noticed in the last day or so. Feels very general, but may be due to negotiating a ladder to put up Adrianne lights. [place] Screening due: No Patient's Goal: Improve low back and knee. _ OBJECTIVE: Verbal permission obtained before all palpation Observation: Patient appears congested. _ PT INTERVENTIONS: risks/benefits reviewed and verbal consent obtained for interventions Self-care: -Education on general signs and symptoms associated with a hernia, but that he has likely just strained some adjacent muscles in and around that area. -Reviewed education on PT plan of care with regards to lower back pain, reassessing his muscular endurance at a future visit. Verbally reviewed his HEP, offered to review or progress exercises, but patient declines due to illness. - Supine 90/90 Alternating Heel Touches with Posterior Pelvic Tilt - PPT + knee extensions - Baby step bridges - Side Plank on Elbow - Hamstring Curl Bridge with TRX 3 hold - Mountain Climber with TRX - Atomic Push-Up with TRX Education on HEP (sets, reps, frequency and appropriate response/progression for exercise) Response to Treatment: NA -patient declines physical treatment this visit. _ GOALS: 1. Pt will be [...] primarily for chronic low back pain. Patient reports minimal HEP adherence secondary to illness. Despite ongoing illness attends appointment, as he indicates main priority of seeing a primary care provider with regards to upper respiratory infection after visit. Thus, no significant progress or change in plan of care this visit. Plan: Patient declines RTC sooner than 5 weeks. Thus will reassess plan of care, muscular endurance and additional PT needs at that point. Patient Education on Treatment Plan: PT role, POC, rehab expectations. Patient indicated readiness to learn, verbalizes understanding, agreement and satisfaction with the treatment plan. Denies further questions. /william/ DIEGO WORKMAN Physical Therapist Signed: 04/08/2023 12:52 DIEGO WORKMAN [facility]
--- OUTSIDE RECORDS SUMMARY | 2023-11-18 10:19 | XMS_ITS | Encounter Summary ---
Author Name [facility] [place] Address [address] [place] [address] Care Team Providers Care Manager Graphic Name Role Phone RIGO RUSSO Primary Care [...] GN SERVI CE BENE Mar 29, 2019 [id number] Jonh SANCHEZ PATIENT [employer] ([employer]) PRESCRIPT ION FOREI GN SERVI CE Mar 29, 2019 [id number] Jonh SANCHEZ PATIENT Selected Encounter This section includes the information on record at [place] for the Encounter. Date/Time Encounter Type Encounter Description Reason Pro vider Source IHE Encounter Template Text not used by [place]
--- OUTSIDE RECORDS SUMMARY | 2023-11-18 10:20 | XMS_ITS | Encounter Summary ---
Author Name [facility] [place] [facility] [place] [facility] [facility] [place] [address] [place] [id number] Care Team Providers Care Personal Financial Advisor Name Role Phone RIGO RUSSO Primary Care Provider Tolu le Insurance Providers: All historical and current [...] GN SERVI CE BENE Mar 29, 2019 [id number] Jonh SANCHEZ PATIENT [employer] [facility]) PRESCRIPT ION FOREI GN SERVI CE Mar 29, 2019 [id number] Jonh SANCHEZ PATIENT Selected Encounter This section includes the information on record at [place] for the Encounter. Date/Time Encounter Type Encounter Description Reason Provider Source Jun 04, 2023 11:00 AM OFF/OP CNSLTJ NEW/EST [facility] ICD-10-CM N40.1 Benign prostatic hyperplasia with lower urinary tract symp SHAWN YADAV [place] Encounter Template Text not used by [place] Assessments - Encounter Diagnoses This section includes the primary and secondary diagnoses documented for the Encounter. Date/Time Primary/Secondary Diagnosis Diagnosis Name Provider Source Jun 04, 2023 12:49 PM PRIMARY Benign prostatic hyperplasia with lower urinary tract symp SHAWN YADAV [facility] Jun 04, 2023 12:49 PM SECONDARY Elevated prostate specific antigen [PSA] SHAWN YADAV [facility] Jun 04, 2023 12:49 PM SECONDARY Family history of malignant neoplasm of prostate SHAWN YADAV [facility] Jun 04, 2023 12:49 PM SECONDARY Male erectile dysfunction, unspecified SHAWN YADAV [facility] Jun 04, 2023 12:49 PM SECONDARY Urgency of urination SHAWN YADAV [facility] Plan of Treatment: Future Appointments (+ 6 months) and Future Tests (+/- 45 days) The Plan of Treatment section includes future care activities for the patient from [facility] [place] [facility] This section includes future appointments and future orders which are active, pending or scheduled. Future Appointments This section includes appointments that were scheduled to occur 6 months from the date of the Encounter, up to a maximum of 20 appointments. The data comes from all [place] treatment facilities. Appointment Date/Time Appointment Type Appointme nt Facility Name Jul 02, 2023 11:15 AM AM[place]ORY - NONE [place] [facility] Jul 09, 2023 12:30 PM [place] [facility] Jul 09, 2023 02:30 PM [place] [facility] Jul 12, 2023 01:30 [facility] Aug 08, 2023 01:00 [facility] Aug 21, 2023 08:00 AM AM[facility]ULATORY - PS[facility]CHIATRY [facility] Sep 17, 2023 11:00 AM AM[facility] - [facility]ATRY [facility] September 18, 2023 12:00 PM [facility] 11[facility]23 01:[facility] Oct 23[facility] 2023 12:00 [facility], 2023 08:00 AM AMBULATORY - REHAB MEDICIN E [facility] Oct 29, 2023 11:00 AM [place] [facility] Nov 04, 2023 11:00 AM [place] [facility] Nov 12, 2023 03:00 PM AMBULATORY - REHAB MEDICIN E [facility] Nov 13, 2023 03:00 PM [place] [facility] Nov 14, 2023 03:00 PM [place]ORY [place] [facility] Nov 15, 2023 03:00 PM [place] [facility] Nov 18, 2023 03:00 PM [place] [facility] Nov 19, 2023 01:00 [facility] Nov 19, 2023 03:00 PM AMBULATORY - NONE [facility] Lab Results: +/- 30 days of the encounter This section includes the Chemistry and Hematology Lab Results on record with [place] for the patient. Radiology Reports and Pathology Reports are provided separately, in subsequent sections. Lab Results This section contains the Chemistry/Hematology Results that were resulted 30 days before or 30 daysafter the date of the Encounter. Date/Time Source Result Type Result - Unit Interpretation Reference Range Comment May 21, 2023 10:37 AM [facility] PSA Specimen Type: SERUM No comment entered. Ordering Provider: GAURAV DE LA CRUZ Report Released Date/Time: May 21, 2023 10:11 AM Reporting Lab: [facility] [id number] Performing Lab: [facility] [id number] PSA 4.05 ng/mL H <4.00 Social History: Smoking Status (Most current) and Tobacco Use (All prior to encounter date) This section includes the most current, and the historical, smoking and tobacco- related health factors from the [place] facility where the Encounter took place. Current Smoking Status This section includes the most current smoking, or tobacco-related health factor, from the [place] facility where the Encounter took place. Date/Time Current Smoking Status Comment Iva ity Dec 24, 2022 09:00 AM VA-TOBACCO FORMER USER [facility] Tobacco Use History This section includes a history of the smoking, or tobacco-related health factors, that were collected on or before the date of the Encounter. The data comes from the [place] facility where the Encounter took place. Date/Time Smoking Status/Tobacco Use Comment F acility Dec 24, 2022 09:00 AM [place] QU[place] 15 YRS OR MORE [facility] Radiology Reports: +/- 30 days of the [...] the Encounter. The data comes from all [place] treatment facilities. Date/Time Radiology Report Provider Source May 21, 2023 10:53 AM CHEST 2 VIEWS PA A ND LAT: CARINA SANCHEZ [id number] -[id number] M Exm Date: MAY 21, 2023@10:53 Req Phys: GAURAV DE LA CRUZ Katarina Loc: [facility] PACT RAINBOW PA 4E (Req'g Img Loc: MAIN X-RAY Service: Unknown (Case [id number] COMPLETE) CHEST 2 VIEWS PA AND LAT (RAD Detailed) CPT:24508 Reason for Study: rule out pneumonia Clinical History: [place] IS NOT under investigation for COVID-19 or is COVID-19 negative cough x 2 months; suspect asthma but need to rule out pneumonia Responsible provider name and phone number to notify for critical findings if other than user placing the order and pager listed below: User placing orders pager: LAST CREATININE 1.0 (12/24/22) Report Status: Verified Date Reported: MAY 23, 2023 Date Verified: MAY 23, 2023 Manager Product Marketing E-Sig: Report: EXAMINATION: CHEST 2 VIEWS PA AND LAT HISTORY: rule out pneumonia COMPARISON: Radiographs December 24, 2022. TECHNIQUE: Frontal and lateral views acquired, and submitted to the [place] National Teleradiology Program (NTP) for interpretation. FINDINGS: Lungs: The lungs are symmetrically inflated and without focal consolidation. Mediastinum: Heart size and mediastinal contours are stable from prior study. Pleural Spaces: No evident pneumothorax or large pleural effusion. Osseous Structures: No acute findings. Multilevel thoracic endplate degenerative changes. Upper abdomen: Unremarkable. Impression: No acute chest findings. If these findings do not corroborate patient's clinical presentation or if the patient remains symptomatic, follow-up with dedicated PA and lateral chest radiographs or CT may be considered. READING PHYSICIAN: Ramone Khan -[phone] 05/23/2023 7:11 ASSOCIATE MEDICAL DIRECTOR [facility] National Teleradiology Program [phone] (For Medical Practitioner Use Only) Attention Patients / Veterans: If you have questions or concerns about these test results, please contact your ordering provider or primary care team. Primary Interpreting Staff: RADIOLOGY,OUTSIDE SERVICE, Staff Physician / RADIOLOGY,OUTSIDE SERVICE [facility] Encounter Notes: All associated encounter notes This section contains the clinical notes associated to the Encounter. Date/Time Encounter Note(s) Provider Source Jun 04, 2023 11:13 AM UROLOGY NURSING OU TPATIENT NOTE: LOCAL TITLE: UROLOGY CLINIC NURSING NOTE STANDARD TITLE: UROLOGY NURSING OUTPATIENT NOTE DATE OF NOTE: JUN 04, 2023@11:13 ENTRY DATE: JUN 04, 2023@11:13:20 AUTHOR: WOODY NG EXP COSIGNER: URGENCY: STATUS: COMPLETED Nursing Procedures: Residual Urine (RU) Patient instructed and verbalizes that s/he has emptied the bladder completely. Ultrasound RU: 0 cc International Prostate Symptoms Score International Prostate Symtoms Score (I-PSS) Scale for questions 1 through 6: 0 = Not at all 1 = Less than 1 time in 5 2 = Less than half the time 3 = About half the time 4 = More than half the time 5 = Almost always 1. Incomplete Emptyin 2. Frequency: 4 3. Intermittency: 3 4. Urgency: 2 5. Weak Stream: 4 6. Strainin 7. Nocturia: 1 Quality of Life (QOL): Total I-PSS = 21 QOL = 5 Scale for QOL questions 0 - Delighted 4 - Mostly dissatisfied 1 - Pleased 5 - Unhappy 2 - Mostly satisfied 6 - Terrible 3 - Unsure IIEF Patient Questionnaire Over the past 4 weeks- 1. When you had erections with sexual stimulation, how often were your erections enough for penetration? Patient Answer: (4) Most times (much more than half the time). 2. During sexual intercourse, how often were you able to maintain your erection after you had penetrated (entered) your partner? Patient Answer: (3) Sometimes (about half the time). 3. During sexual intercourse, how difficult was it to maintain your erection to completion of intercourse? Patient Answer: (4) Slightly difficult. 4. When you attempted sexual intercourse, how often was it satisfactory to you? Patient Answer: (4) Most times (much more than half the time). 5. How do you rate your confidence that you could get and keep an erection? Patient Answer: (3) Moderate. IIEF Score: /william/ WOODY NG LPN LICENSED PRACTICAL NURSE Signed: 06/04/2023 11:14 WOODY NG [facility] Jun 04, 2023 11:01 AM UROLOGY CONSULT: LOCAL TITLE: UROLOGY CONSULT STANDARD TITLE: UROLOGY CONSULT DATE OF NOTE: JUN 04, 2023@11:01 ENTRY DATE: JUN 04, 2023@11:02:42 AUTHOR: SHAWN YADAV EXP COSIGNER: URGENCY: STATUS: COMPLETED Chief Complaint: elevated PSA CARINA Long is a 48 year old who presents for elevated PSA. Pt having urgency, frequency. He was started on Tamsulosin which he is not sure it is helping. Pt has recent family hx of prostate cancer and he is concerned enough to have it checked out. Pt uses Sildenafil PRN. Discussed BPH; false elevataions of PSA, monitoring, pelvic MRI and/or prostate biopsy. Pt interested in having MRI completed. URINARY SYMPTOMS Urinary stream: Weak Frequency: Yes Urgency: Yes Hesitancy: Emptying: Difficult at times Nocturia: x0-1 Incontinence: Denies Pads/day: No Dysuria: Denies Hematuria: Denies History of UTI: No Hx prostate surgery: Denies Alpha pauly: Tamsulosin Finasteride: Bowel movements: WNL Fluid intake: Caffeine intake: IPSS-21 QOL- 5 IIEF- 17 PAST MEDICAL HISTORY: OEF/OIF/ONE/OSS/GWOT EXPOSURE TO BROWN-4, JOEF/OIF/ONE/OSS/GWOT EXPOSURE TO OPEN BURN PIT SMOKE (AL UDIED AB, QATAR/INCIRLIK AB, TURKEY/BAF/MORON AB, STEPH/USAF/RANK E6/AFSC-2A574/JOB-AIRCRAFT SENIOR MEDICAL DIRECTOR) (ICD-10-CM R69.) OEF/OIF/ONE/OSS/GWOT EXPOSURE TO SANDSTOOEF/OIF/ONE/OSS/GWOT EXPOSURE TO AQUEOUS FILM FORMING FOAM-AFFF (AL UDIED AB, QATAR/INCIRLIK AB, T[place]/BAF/MORON AB, STEPH/USAF/RANK E6/AFSC-2A574/JOB-AIRCRAFT SENIOR MEDICAL DIRECTOR) (ICD-10-CM R69.) OEF/OIF/ONE/OSS/GWOT EXPOSURE TO PURPLE OEF/OIF/ONE/OSS/GWOT EXPOSURE TO HALON FIRE EXTINGUISHER (AL UDIED AB, QATAR/INCIRLIK AB, [place]/BAF/MORON AB, STEPH/USAF/RANK E6/AFSC-2A574/JOB-AIRCRAFT SENIOR MEDICAL DIRECTOR) (ICD-10-CM R69.) OEF/OIF/ONE/OSS/GWOT EXPOSURE TO HYDRAULOEF/OIF/ONE/OSS/GWOT EXPOSURE TO MOLYBEDENUM GREASE-MOLY B(AL IED AB, QATAR/INCIRLIK AB, [place]/BAF/MORON AB, STEPH/USAF/RANK E6/AFSC-2A574/JOB-AIRCRAFT SENIOR MEDICAL DIRECTOR) (ICD-10-CM R69.) OEF/OIF/ONE/OSS/GWOT EXPOSURE TO HEAVY MOEF/OIF/ONE/OSS/GWOT EXPOSURE TO RADIATION/MQ1 PREDATOR/MQ9 REAPER/KC135 AIRCRAFT/C17 GLOBE MASTER (AL IED AB, QATAR/INCIRLIK AB, [place]/BAF/MORON AB, STEPH/[facility]/RANK E6/AFSC-2A574/JOB- AIRCRAFT SENIOR MEDICAL DIRECTOR) (ICD-10-CM R69.) Dyspnea on exertion (SCT [id number]) Nasal sinus obstruction (SCT 996471556) Hypertension (SCT 12516350) Erectile dysfunction (SCT 660043605) Benign prostatic hyperplasia (SCT 461250Ctrxfkdy specific antigen above reference range (SCT 323116059) Exposure to potentially hazardous chemicTinnitus (SCT 32627771) Chronic low back pain (SCT 006941410) Pain of bilateral knee regions ([facility] [id number]) Chronic migraine without aura (SCT 01821Aswf intermittent asthma ([facility] [id number]) PAST SURGICAL HISTORY: SURGERIES - NONE FOUND Medications: Active Outpatient Medications (including Supplies): Active Outpatient Medications Status 1) BUDESONIDE 160/FORMOTER 4.5MCG 120D INH INHALE 1 PUFF ACTIVE BY INHALATION EVERY 4 HOURS NEEDED FOR ASTHMA MAXIMUM 12 PUFFS PER DAY 2) CETIRIZINE HCL 10MG TAB TAKE ONE TABLET BY MOUTH ACTIVE EVERY DAY ALLERGIES 3) ETODOLAC 200MG CAP TAKE ONE CAPSULE BY MOUTH THREE ACTIVE TIMES A DAY FOR PAIN 4) FLUTICASONE PROP 50MCG 120D NASAL INHL SPRAY 2 SPRAYS ACTIVE IN EACH NOSTRIL EVERY DAY FOR 1 WEEK, THEN SPRAY 1 SPRAY EVERY DAY FOR 3 WEEKS 5) HCTZ 25/TRIAMTERENE 37.5MG TAB TAKE 1 TABLET BY MOUTH ACTIVE EVERY DAY FOR BLOOD PRESSURE 6) METOPROLOL SUCCINATE 25MG SA TAB TAKE ONE TABLET BY ACTIVE MOUTH EVERY DAY FOR BLOOD PRESSURE 7) SILDENAFIL CITRATE 100MG TAB TAKE ONE TABLET BY MOUTH ACTIVE NEEDED FOR ERECTILE DYSFUNCTION 8) TAMSULOSIN HCL 0.4MG CAP TAKE ONE CAPSULE BY MOUTH AT ACTIVE BEDTIME FOR PROSTATE Allergies: Patient has answered NKA FAMILY HISTORY: Hx of prostate cancer: + Father; Dx at age 80 - EBRT + Breast cancer SOCIAL HISTORY: Lives at home with: Children: X1 Occupation: Tobacco use: Alcohol use: Illicit drug use: 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 : Penis: Circumcised. Normal orthotopic meatus. No drainage is noted. No palpable penile plaques. No lesions. Testes: descended, symmetrical bilat, no masses noted. Scrotum: tight. No hydroceles bilaterally. No inflammation noted. No varicoceles bilaterally. Epididymis without pain to palpation or spermatocele. STACY: Normal sphincter tone. No fecal impaction, masses, tenderness or hemorrhoids noted. Prostate is +1 and symmetrical. Consistency normal. No discreet nodules noted. PVR today via bladder scan: 0ml LABS: [place]: 4.32 06/2022 and 4.56 09/2022 PSA 4.05 H SERUM (05/21/23 10:37) 4.85 H SERUM (12/24/22 11:00) TESTOSTERONE____ UA reviewed from 12/24/22 CULTURE & SUSCEPTIBILITY____ IMAGING: N/A ASSESSMENT: BPH Urge Frequency Erectile dysfunction FHx PLAN: Continue Tamsulosin, Sildenafil Prostate MRI RTC for results Time spent: 45 minutes (Includes review of chart, medications, labs/imaging reports, communication of new results, outside records, patient education/counseling, and coordination of care) /william/ Shawn Yadav APRN/PATENT LEATHER SORTER CLINICAL NURSE SPECIALIST Signed: 06/04/2023 12:50 SHAWN YADAV [facility]
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
--- OUTSIDE RECORDS SUMMARY | 2023-11-18 10:22 | XMS_ITS | Encounter Summary ---
Author Name [facility] [place] Address [address] [place] [address] Care Team Providers Care Vessel Specialist Name Role Phone RIGO DIEGO Primary Care Provider Unavailab le Insurance Providers: [...] GN SERVI CE BENE Mar 29, 2019 [id number] Jonh SANCHEZ PATIENT [employer] ([employer]) PRESCRIPT ION FOREI GN SERVI CE Mar 29, 2019 [id number] Jonh SANCHEZ PATIENT Selected Encounter This section includes the information on record at [place] for the Encounter. Date/Time Encounter Type Encounter Description Reason Provider Source Aug 21, 2023 08:00 AM PSYTX W PT 45 MINUTES PCMHI INDIV ICD-10-CM F43.21 Adjustment disorder with depressed mood BETHANY MOFFETT [place] Encounter Template Text not used by CT Assessments - Encounter Diagnoses This section includes the primary and secondary diagnoses documented for the Encounter. Date/Time Primary/Secondary Diagnosis Diagnosis Name Provider Source Aug 23, 2023 10:32 AM PRIMARY Adjustment disorder with depressed mood BETHANY MOFFETT [facility] Plan of Treatment: Future [...] 20 appointments. The data comes from all [facility]. Appointment Date/Time Appointment Type Appointme nt Facility Name Sep 17, 2023 11:00 AM AMBULATORY [place] [facility] [place] [facility] September 18, 2023 12:00 PM [facility] October 11, 2023 01:00 PM [facility] Oct 23, 2023 12:00 PM [facility] Oct 29, 2023 08:00 [facility] Oct 29, 2023 11:00 AM [facility] [place] [facility] Nov 04, 2023 11:00 AM [facility] [place] [facility] Nov 12, 2023 03:00 PM AMBULATORY - REHAB MEDICIN E [facility] Nov 13, 2023 03:00 PM [facility] [facility] [facility] Nov 14, 2023 03:00 PM [facility] [place] [facility] Nov 15, 2023 03:00 PM [facility] [place] [facility] Nov 18, 2023 03:00 PM [facility] [place] [facility] [facility] Nov 19, 2023 01:00 PM [facility] [place] [facility] Nov 19, 2023 03:00 PM [facility] [place] [facility] [facility] Nov 20, 2023 12:00 [facility] Nov 20, 2023 03:00 PM [facility] [place] [facility] Nov 22, 2023 03:00 PM [facility] [place] [facility] [facility] Nov 25, 2023 03:00 PM [facility] [place] [facility] Nov 26, 2023 01:00 PM [facility] [place] [facility] Nov 26, 2023 03:00 PM AMBULATORY - REHAB MEDICIN E [facility] Social History: Smoking Status (Most current) and Tobacco Use (All prior to encounter date) This section includes the most current, and the historical, smoking and tobacco- related health factors from the [place] facility where the Encounter took place. Current Smoking Status This section includes the most current smoking, or tobacco-related health factor, from the [place] facility where the Encounter took place. Date/Time Current Smoking Status Comment Iva ity Dec 24, 2022 09:00 AM VA-TOBACCO FORMER USER [facility] Tobacco Use History This section includes a history of the smoking, or tobacco-related health factors, that were collected on or before the date of the Encounter. The data comes from the [place] facility where the Encounter took place. Date/Time Smoking Status/Tobacco Use Comment F acility Dec 24, 2022 09:00 AM VA-TOBACCO QUIT 15 YRS OR MORE [facility] Encounter Notes: All associated encounter notes This section contains the clinical notes associated to the Encounter. Date/Time Encounter Note(s) Provider Source Aug 21, 2023 01:38 PM MENTAL HEALTH NOTE : LOCAL TITLE: MEASUREMENT BASED CARE STANDARD TITLE: MENTAL HEALTH NOTE DATE OF NOTE: AUG 21, 2023@13:38:02 ENTRY DATE: AUG 21, 2023@13:38:02 AUTHOR: BETHANY MOFFETT COSIGNER: URGENCY: STATUS: COMPLETED Assessments were sent to the [place] via text/email. These assessments were completed by CARINA SANCHEZ on their own device on 08/21/2023 8:32:09 AM. PATIENT HEALTH QUESTIONNAIRE-9 (PHQ-9) The patient reported some symptoms of depression; symptoms are not consistent with a major depressive episode. Patient reported being bothered by the following over the last 2 weeks: 1. Little interest or pleasure: Not at all 2. Feeling down, depressed or hopeless: Not at all 3. Trouble sleeping: Not at all 4. Tired, low energy: Several Days 5. Poor appetite, over-eating: Not at all 6. Feelings of failure, guilt: Not at all 7. Trouble concentrating: Not at all 8. Motor retardation, agitation: Not at all 9. Thoughts better off /hurting self: Not at all PHQ-9 total score = 1 1-4 = minimal symptoms 5-9= mild symptoms 10-14= moderate symptoms 15-19= moderately severe symptoms 20-27= severe depressive symptoms The patient stated that the depressive symptoms made it not at all difficult to work, take care of things at home, or get along with others. GENERAL ANXIETY DISORDER-7 (DUGLAS-7) Patient reported being bothered by the following over the last two weeks: 1. Feeling nervous, anxious or on edge: Not at all 2. Not being able to stop or control worrying: Several days 3. Worrying too much about different things: Not at all 4. Trouble relaxing: Not at all 5. Feeling restless (hard to sit still): Not at all 6. Becoming easily annoyed or irritable: Not at all 7. Afraid as if something awful might happen: Not at all DUGLAS-7 total score = 1 0-4=minimal symptoms 5-9=mild symptoms 10-14=moderate symptoms 15-21=severe symptoms The patient stated that the anxiety symptoms made it not at all difficult to work, take care of things at home, or get along with others. INSOMNIA SEVERITY INDEX (RANDY) Patient reported the severity of insomnia problems in the last two weeks as follows: 1. Difficulty falling asleep: None 2. Difficulty staying asleep: None 3. Problems waking up too early: None 4. Satisfaction with sleep: Satisfied 5. Impaired quality of life noticeable to others: Not at all Noticeable 6. Distressed by sleep problems: Not at all Worried 7. Interference with daily functioning: Not at all Interfering RANDY total score = 1 0-7 = No clinically significant insomnia 8-14 = Subthreshold insomnia 15-21 = Clinical insomnia (moderate severity) 22-28 = Clinical insomnia (severe) ALCOHOL USE DISORDERS IDENTIFICATION TEST (AUDIT) The patient reported the following over the past year: 1. Had a drink containing alcohol: Monthly or less 2. # drinks containing alcohol on typical drinking day: 1 or 2 3. Had six or more drinks on one occasion: Never 4. Not able to stop drinking once started (in last year): N/A 5. Failed to do what was expected because of drinking: N/A 6. Needed a first drink in the morning to get going after heavy drinking session (in the last year): N/A 7. Feeling of guilt or remorse after drinking: N/A 8. Unable to remember what happened the night before because of drinking: N/A 9. Self or someone else injured as a result of drinking: No 10. Relative/friend/doctor/heal th worker concerned about drinking: No AUDIT Total Score: 1 AUDIT scores range from 0-40. Higher scores indicate higher risk of alcohol-related harm. PAIN, ENJOYMENT OF LIFE AND GENERAL ACTIVITY (PEG) Patient rated the following on a scale from 0 to 10, over the past week: 1. Average pain (0=No pain - 10=Pain as bad as you can imagine): 0 2. Pain interference with enjoyment of life (0=Does not interfere - 10=Completely Interferes): 0 3. Pain interference with general activity (0=Does not interfere - 10=Completely Interferes): 0 PEG Average Score: 0 Scores are an average of the 3 items and range from 0 to 10. Higher scores represent worse pain. /william/ Bethany Moffett, PhD Staff Psychologist Signed: 08/23/2023 10:32 BETHANY MOFFETT [facility] Aug 21, 2023 08:00 AM MENTAL HEALTH CONS ULT: LOCAL TITLE: PRIMARY CARE-MH INTEGRATION CONSULT STANDARD TITLE: MENTAL HEALTH CONSULT DATE OF NOTE: AUG 21, 2023@08:00 ENTRY DATE: AUG 21, 2023@08:27:54 AUTHOR: BETHANY MOFFETT COSIGNER: URGENCY: STATUS: COMPLETED PRIMARY CARE-MENTAL HEALTH INTEGRATION (PCMHI) PROGRESS NOTE Information was reviewed with the patient regarding the role and services of the behavioral health provider, documentation procedures, risks/complications and benefits of treatment, limits to confidentiality; patient agreed to participate in treatment. If email or [facility] were utilized, use and confidentiality were discussed and consent was obtained. Patient was provided with the signwriter's contact information in addition to information on how to access emergency services if the symptoms escalate: Mental health crisis [phone], [place] suicide prevention hotline: 980, Life threatening emergency: 911. PROCEDURES: 45-minute behavioral health provider evaluation and treatment plan SELF-REPORT/REASON FOR REFERRAL: adjustment to loss TREATMENT PLAN: Treatment goals negotiated with patient include: 1. will follow up with Bethany Moffett 2. 's goals: cope with recent loss of mother 3. Recommendations for PACT: remind and encourage [place] of the above plan INTEGRATED SUMMARY: Pt is a 48 yo male referred to [facility] by his PCP Dr. Diego. The stated he had originally sought support for caregiver stress but that his mother last week. He reported he is now interested in connecting for support as he works through grief. 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 He stated they moved to [place] ( is originally from [place]) and they have been working on connecting with others. He reported he does not know what the future will look like for him as his loss is very recent. The stated his goal is to stay connected with as he adjusts to the of his mother. DIAGNOSTIC IMPRESSIONS: Adjustment Disorder with depressed mood (ICD-10-CM F43.21) (Primary) SUBJECTIVE/OBJECTIVE: The arrived to the appointment on time and appeared fully oriented. He ambulated independently. He was dressed casually and appropriately for the weather. He displayed appropriate eye-contact. Speech rate and rhythm were WNL and his volume was WNL. Thought processes were logical and linear. There was no evidence of auditory or visual hallucinations, nor was there evidence that the patient was responding to internal stimuli. Mood appeared euthymic with congruent affect. Presenting Problem History (Duration/Frequency/Intensi ty): [place] reported his mother recently and he is adjusting to his new normal. He stated he has noticed ups and downs and anticipates that that will continue in the coming weeks. He reported he has not been in therapy previously and has not taken medication for mood. He is also enrolled in the [facility] program at [facility]. 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 Risk factors: age; race; gender (male); mental health; recent loss of mother; OEF/OIF [place] Protective factors: absence of suicidal/homicidal ideation, intent, plan, or behaviors; perceived social support; responsibility for children/family/pet; no alcohol or substance abuse/dependency issues; help-seeking/engaging in treatments Based on risk and protective factors, the patient is considered to be at low acute and low chronic risk for committing suicidal acts/self-harm at this time. ADDITIONAL ASSESSMENT: see MEASUREMENT BASED CARE note PLAN: RTC 09/17/23, 11:00, in person /william/ Bethany Moffett, PhD Staff Psychologist Signed: 08/23/2023 10:32 BETHANY MOFFETT [facility] Aug 21, 2023 07:59 AM ADVANCE DIRECTIVE: LOCAL TITLE: AD NOTIFICATION AND SCREENING STANDARD TITLE: ADVANCE DIRECTIVE DATE OF NOTE: AUG 21, 2023@07:59 ENTRY DATE: AUG 21, 2023@07:59:11 AUTHOR: MAIRA WARREN COSIGNER: URGENCY: STATUS: COMPLETED ADVANCE DIRECTIVE NOTIFICATION: Patient was given written notification of the following rights: 1. Accept or refuse any medical treatment. 2. Complete a durable power of privacy attorney for health care. 3. Complete a living will. ADVANCE DIRECTIVE SCREENING: Does patient have an Advance Directive? The patient does not have an Advance Directive. The patient does not wish to create an Advance Directive for health care. Comment: declined /william/ MAIRA WARREN Advance Title I Coordinator Signed: 08/21/2023 07:59 MAIRA WARREN [facility]
--- OUTSIDE RECORDS SUMMARY | 2023-11-18 10:28 | XMS_ITS | Encounter Summary ---
Author Name [facility] [place] [facility] [place] [facility] Address [address] [place] [address] Care Team Providers Care Feed Handler Name Role Phone RIGO RUSSO Primary Care [...] GN SERVI CE BENE Mar 29, 2019 [id number] [phone] Jonh SANCHEZ PATIENT [employer] ([employer]) PRESCRIPT ION FOREI GN SERVI CE Mar 29, 2019 [id number] [phone] Jonh SANCHEZ PATIENT Selected Encounter This section includes the information on record at [place] for the Encounter. Date/Time Encounter Type Encounter Description Reason Pro vider Source October 02, 2023 12:00 PM Outpatient Encounter [facility] & MOVE! PROG - GRP IHE Encounter Template Text not used by [place] Plan of Treatment: Future Appointments (+ 6 months) and Future Tests (+/- 45 days) The Plan of Treatment section includes future care activities for the patient from all [place] treatmentfacilities. This section includes future appointments and future orders which are active, pending or scheduled. Future Appointments This section includes appointments that were scheduled to occur 6 months from the date of the Encounter, up to a maximum of 20 appointments. The data comes from all [place] treatment facilities. Appointment Date/Time Appointment Type Appointme nt Facility Name October 11, 2023 01:00 PM [facility] Oct 23, 2023 12:00 PM [facility] Oct 29, 2023 08:00 AM AMBULATORY - REHAB MEDIC[facility] Oct 29, 2023 11:00 AM [facility] [place] [facility] Nov 04, 2023 11:00 AM [facility] [place] [facility] [facility] Nov 12, 2023 03:00 PM AMBULATORY - REHAB MEDIC[facility] Nov 13, 2023 03:00 PM [place] [place] [facility] Nov 14, 2023 03:00 PM [facility] [place] [facility] Nov 15, 2023 03:00 PM [facility] [place] [facility] Nov 18, 2023 03:00 PM [facility] [place] [facility] Nov 19, 2023 01:00 PM [facility] [place] [facility] Nov 19, 2023 03:00 PM [facility] [facility] Nov 20, 2023 12[facility]00 PM [facility] Nov 20, 2023 03:00 PM [facility] [facility] Nov 22, 2023 03:00 PM [facility] [place] [facility] Nov 25, 2023 03:00 PM [facility] [place] [facility] Nov 26, 2023 01:00 PM [facility] [place] [facility] Nov 26, 2023 03:00 PM AMBULATORY - REHAB MEDICIN [facility] Dec 03, 2023 01:00 PM [facility] [place] [facility] Dec 04, 2023 12:00 PM [facility] Active, Pending, and Scheduled Orders This section includes a listing of several types of active, pending, and scheduled orders, including clinic medications orders, diagnostic test orders, procedure orders and consult orders; where the start date of the order is 45 days before the date of the Encounter or 45 days after the date of theEncounter. The data comes from all [place] treatment [facility]. Test Date/Time Test Type Test Details Facility Name Oct 23, 2023 02:47 PM Consult Order COMMUNITY CARE-ECHOCARDIOGRAPHY Cons Manual Winder's Choice [facility] Social History: Smoking Status (Most current) and Tobacco Use (All prior to encounter date) This section includes the most current, and the historical, smoking and tobacco- related health factors from the [place] facility where the Encounter took place. Current Smoking Status This section includes the most current smoking, or tobacco-related health factor, from the [place] facility where the Encounter took place. Date/Time Current Smoking Status Comment Iva ity Dec 24, 2022 09:00 AM VA-TOBACCO FORMER USER [facility] Tobacco Use History This section includes a history of the smoking, or tobacco-related health factors, that were collected on or before the date of the Encounter. The data comes from the [place] facility where the Encounter took place. Date/Time Smoking Status/Tobacco Use Comment F acility Dec 24, 2022 09:00 AM VA-TOBACCO QUIT 15 YRS OR MORE [facility] Encounter Notes: All associated encounter notes This section contains the clinical notes associated to the Encounter. Date/Time Encounter Note(s) Provider Source October 10, 2023 10:57 AM REPORT OF CONTACT: LOCAL TITLE: APPOINTMENT SCHEDULING NOTE STANDARD TITLE: REPORT OF CONTACT DATE OF NOTE: OCTOBER 10, 2023@10:57 ENTRY DATE: OCTOBER 10, 2023@10:57:14 AUTHOR: PRANEETH KOO EXP COSIGNER: URGENCY: STATUS: COMPLETED Attempted to schedule Cancellation - 10/02/23 @ 12:00 p.m. Patient cancellation Other: Per Shruti, patient had conflict with today's appointment so needed to cancel. Classes are prescheduled. Next class is October 22. /william/ PRANEETH KOO Advanced Aerial Hurricane Hunter Signed: 10/10/2023 10:58 PRANEETH KOO [facility] October 02, 2023 12:00 PM NO SHOW NOTE: LOCAL TITLE: NO SHOW/CANCELLATION CLINIC NOTE STANDARD TITLE: NO SHOW NOTE DATE OF NOTE: OCTOBER 02, 2023@12:00 ENTRY DATE: OCTOBER 02, 2023@13:56:45 AUTHOR: SHRUTI BLACKBURN EXP COSIGNER: URGENCY: STATUS: COMPLETED [place] not seen for scheduled appointment due to: [place] cancelled stated at the last class that he may not be able to attend today's class due to a conflict. Explained to him that I would cancel if he wasn't able to come. Appointment Rescheduled: No prescheduled. Please review patient chart and medications for renewal needs (if appropriate). /william/ Shruti Blackburn RN, [facility] Certified Diabetes Care & Pe Electrical Engineer Signed: 10/02/2023 13:58 SHRUTI BLACKBURN [facility]
--- OUTSIDE RECORDS SUMMARY | 2023-11-18 10:35 | XMS_ITS | Encounter Summary ---
Author Name [place] Address [address] [place] [address] Care Team Providers Care Tire Finisher Name Role Phone RIGO RUSSO Primary Care [...] GN SERVI CE BENE Mar 29, 2019 [id number] [phone] Jonh SANCHEZ PATIENT [facility] ([employer] [facility]) PRESCRIPT ION FOREI GN SERVI CE Mar 29, 2019 [id number] Jonh SANCHEZ PATIENT Selected Encounter This section includes the information on record at [place] for the Encounter. Date/Time Encounter Type Encounter Description Reason Pro vider Source Oct 29, 2023 10:56 AM Outpatient Encounter [facility] IHE Encounter Template Text not used by [...] Date/Time Appointment Type Appointme nt Facility Name Nov 04, 2023 11:00 AM [facility] [place] [facility] Nov 12, 2023 03:00 PM AMBULATORY - REHAB MEDICIN E [facility] Nov 13, 2023 03:00 PM [place] [facility] Nov 14, 2023 03:00 PM [place] [facility] Nov 15, 2023 03:00 PM [place] [facility] Nov 18, 2023 03:00 PM [place] [place] [facility] Nov 19, 2023 01:00 PM [place] [place] [facility] Nov 19, 2023 03:00 PM [place] [place] [facility] Nov 20, 2023 12:00 PM [place] [facility] Nov 20, 2023 03:00 PM [place] [place] [facility] Nov 22, 2023 03:00 PM [place] [place] [facility] Nov 25, 2023 03:00 PM [place] [facility] Nov 26, 2023 01:00 PM [place] [place] [facility] Nov 26, 2023 03:00 PM AMBULATORY - REHAB MEDICIN E [facility] Dec 03, 2023 01:00 PM [place] [facility] Dec 04, 2023 12:00 PM [place] [facility] Dec 10, 2023 01:00 PM [place] [place] [facility] Dec 13, 2023 09:30 AM [place] [facility] Dec 17, 2023 01:00 PM [place] [place] [facility] Dec 24, 2023 01:00 PM [place] [place] [facility] Active, Pending, and Scheduled Orders This [...] data comes from all [place] treatment facilities. Test Date/Time Test Type Test Details Facility Name Oct 23, 2023 02:47 PM Consult Order COMMUNITY CARE-ECHOCARDIOGRAPHY Cons Solutions Sales Consultant's Choice [facility] Social History: Smoking Status (Most current) and Tobacco Use (All prior to encounter date) This section includes the most current, and the historical, smoking and tobacco- related health factors from the [facility] where the Encounter took place. Current Smoking Status This section includes the most current smoking, or tobacco-related health factor, from the [facility] where the Encounter took place. Date/Time Current Smoking Status Comment Iva ity October 11, 2023 01:00 PM VA-TOBACCO FORMER USER [facility] Tobacco Use History This section includes a history of the smoking, or tobacco-related health factors, that were collected on or before the date of the Encounter. The data comes from the [facility] where the Encounter took place. Date/Time Smoking Status/Tobacco Use Comment F acyuan October 11, 2023 01:00 PM VA-TOBACCO QUIT 15 YRS OR MORE [facility] Dec 24, 2022 09:00 AM VA-TOBACCO FORMER USER [facility] Dec 24, 2022 09:00 AM VA-TOBACCO QUIT 15 YRS OR MORE [facility] Encounter Notes: All associated encounter notes This section contains the clinical notes associated to the Encounter. Date/Time Encounter Note(s) Provider Source Oct 29, 2023 10:56 AM ADVANCE DIRECTIVE: LOCAL TITLE: AD NOTIFICATION AND SCREENING STANDARD TITLE: ADVANCE DIRECTIVE DATE OF NOTE: OCT 29, 2023@10:56 ENTRY DATE: OCT 29, 2023@10:57 AUTHOR: MAIRA WARREN EXP COSIGNER: URGENCY: STATUS: COMPLETED ADVANCE DIRECTIVE NOTIFICATION: Patient was given written notification of the following rights: 1. Accept or refuse any medical treatment. 2. Complete a durable power of criminal records technician for health care. 3. Complete a living will. ADVANCE DIRECTIVE SCREENING: Does patient have an Advance Directive? The patient does not have an Advance Directive. The patient does not wish to create an Advance Directive for health care. Comment: declined /william/ MAIRA WARREN Advance Senior Treasury Consultant Signed: 10/29/2023 10:57 MAIRA WARREN [facility]
--- OUTSIDE RECORDS SUMMARY | 2023-11-18 10:38 | XMS_ITS | Encounter Summary ---
Author Name [facility] [place] [facility] [place] Address [address] [place] [address] Care Team Providers Care Regional Branch Manager Name Role Phone RIGO RUSSO Primary [...] GN SERVI CE BENE Mar 29, 2019 [id number] Jonh SANCHEZ PATIENT [facility] ([facility]) PRESCRIPT ION FOREI GN SERVI CE Mar 29, 2019 [id number] 845 Jonh SANCHEZ PATIENT Selected Encounter This section includes the information on record at [place] for the Encounter. Date/Time Encounter Type Encounter Description Reason Provider Source Nov 04, 2023 11:00 AM [facility] ICD-10-CM Z71.9 Counseling, unspecified BRENTON DE LA CRUZ IHE Encounter Template Text not used by [place] Assessments - Encounter Diagnoses This section includes the primary and secondary diagnoses documented for the Encounter. Date/Time Primary/Secondary Diagnosis Diagnosis Name Provider Source Nov 04, 2023 12:08 PM PRIMARY Counseling, unspecified BRENTON DE LA CRUZ [facility] Plan of Treatment: Future Appointments (+ 6 months) and Future Tests (+/- 45 days) The Plan of Treatment section includes future care activities for the patient from all [place] treatmentfacilities. This section includes future appointments and future orders which are active, pending or scheduled. Future Appointments This section includes appointments that were scheduled to occur 6 months from the date of the Encounter, up to a maximum of 20 appointments. The data comes from all [facility]. Appointment Date/Time Appointment Type Appointme nt Facility Name Nov 12, 2023 03:00 PM AMBULATORY - REHAB MEDICIN E [facility] Nov 13, 2023 03:00 PM [facility] [place] [facility] Nov 14, 2023 03:00 PM [facility] [place] [facility] Nov 15, 2023 03:00 PM [facility]ORY [place]ONE [place] [facility] Nov 18, 2023 03:00 PM [facility]ORY [place]ONE [place] [facility] Nov 19, 2023 01:00 PM [facility]ORY [place]ONE [place] [facility] Nov 19, 2023 03:00 PM [facility]ORY [place] [facility] Nov 20, 2023 12:00 PM [place] [facility] Nov 20, 2023 03:00 PM [place]ORY [place] [facility] Nov 22, 2023 03:00 PM [facility]ORY [place]ONE [place] [facility] Nov 25, 2023 03:00 PM [facility]ORY [facility] [place]ONE [place] [facility] Nov 26, 2023 01:00 PM [facility]ORY [place]ONE [place] [facility] Nov 26, 2023 03:00 PM AMBULATORY - REHAB MEDICIN E [facility] Dec 03, 2023 01:00 PM [facility] [place] [facility] Dec 04, 2023 12:00 PM [facility] Dec 10, 2023 01:00 PM AM[facility]ORY [facility]ONE [place] [facility] Dec 13, 2023 09:30 AM [place] [place] [facility] Dec 17, 2023 01:00 PM [facility]ORY [place]ONE [place] [facility] Dec 24, 2023 01:00 PM [facility]ORY [place] [facility]ONE [place] [facility] Dec 25, 2023 12:00 PM [facility] [place] [place] [facility] Active, Pending, and Scheduled Orders This section includes a listing of several types of active, pending, and scheduled orders, including clinic medications orders, diagnostic test orders, procedure orders and consult orders; where the start date of the order is 45 days before the date of the Encounter or 45 days after the date of theEncounter. The data comes from all [place] treatment facilities. Test Date/Time Test Type Test Details Facility Name Oct 23, 2023 02:47 PM Consult Order COMMUNITY CARE-ECHOCARDIOGRAPHY Cons Surgical Coder's Choice [facility] Social History: Smoking Status (Most current) [...] Date/Time Current Smoking Status Comment Facil ity October 11, 2023 01:00 PM VA-TOBACCO FORMER USER [facility] Tobacco Use History This section includes a history of the smoking, or tobacco-related health factors, that were collected on or before the date of the Encounter. The data comes from the [facility] where the Encounter took place. Date/Time Smoking Status/Tobacco Use Comment F acility October 11, 2023 01:00 PM VA-TOBACCO QUIT 15 YRS OR MORE [facility] Dec 24, 2022 09:00 AM VA-TOBACCO FORMER USER [facility] Dec 24, 2022 09:00 AM VA-TOBACCO QUIT 15 YRS OR MORE [facility] Encounter Notes: All associated encounter notes This section contains the clinical notes associated to the Encounter. Date/Time Encounter Note(s) Provider Source Nov 04, 2023 12:06 PM INTEGRATIVE HEALTH NOTE: LOCAL TITLE: WHOLE HEALTH GROUP PROGRESS NOTE STANDARD TITLE: INTEGRATIVE HEALTH NOTE DATE OF NOTE: NOV 04, 2023@12:06 ENTRY DATE: NOV 04, 2023@12:06:23 AUTHOR: BRENTON DE LA CRUZIGNER: URGENCY: STATUS: COMPLETED attended Introduction to Whole Health session. Information was provided to introduce Veterans to the Whole Health approach to care. [place] was supported in considering how to utilize his/her own strengths and abilities to help build a healing partnership with [facility] to optimize well-being with a focus on what matters most to the [place]. Content included an overview of the [place] of Health and descriptions of eight areas of self-care and well-being that address many areas of an individual's life. Facilitators discussed how Whole Health goes beyond illnesses, injuries, or disabilities and supports Veterans' focus on values and aspirations. was encouraged to consider the question, What would you do if your health were the best it could be? to assist with setting goals to improve health and well-being. The facilitators provided a description of local services available including, though not limited to: - Enrollment office information [as needed] - Complementary and integrative health approaches available locally or in the community - Peer-led Taking Charge of My Life and Health groups - Health Coaching - Next steps for care [as needed] Visit Type: Group [place] Video Connect (VVC) Patient understood instructions and is agreeable to VVC visit. Location and emergency number confirmed. Handouts provided: Components of Proactive Health and Well-being Brochures , Brief Personal Health Inventory (PHI), Personal Health Plan Wallet Card , [place] of Health Magnet , Whole Health: It Starts with Me booklet , [place] [employer] [facility] , Five Signs of Suffering Learner: Patient Method: Group Evaluation of Learning: Able to Perform/Verbalize All Veterans were given opportunities to participate and ask questions, and all questions posed were addressed. Veterans were informed of the availability of emergency services, including 911, and the Veterans Crisis Line [phone]. [place] would like the following follow up options for support: Follow up with Taking Charge of My Life and Health(TCMLH) group class. /william/ BRENTON DE LA CRUZ STAFF NURSE Signed: 11/04/2023 12:08 BRENTON DE LA CRUZ [facility]
--- OUTSIDE RECORDS SUMMARY | 2023-11-18 10:40 | XMS_ITS | Encounter Summary ---
Author Name [facility] [place] [facility] [place] [facility] [place] Address [address] [place] [address] Care Team Providers Care Rink Rat Name Role Phone RIGO RUSSO Primary Care [...] GN SERVI CE BENE Mar 29, 2019 [id number] Jonh SANCHEZ PATIENT [facility] ([facility]) PRESCRIPT ION FOREI GN SERVI CE Mar 29, 2019 [id number] Jonh SANCHEZ PATIENT Selected Encounter This section includes the information on record at [place] for the Encounter. Date/Time Encounter Type Encounter Description Reason Pro vider Source Nov 11, 2023 02:21 PM Outpatient Encounter COMMUNITY CARE CONSULT IHE Encounter Template Text not used by [place] Plan of Treatment: Future Appointments (+ 6 months) and Future Tests (+/- 45 days) The Plan of Treatment section includes future care activities for the patient from all [place] treatmentfacilities. This section includes future appointments and future orders which are active, pending or scheduled. Future Appointments This section includes appointments that were scheduled to occur 6 months from the date of the Encounter, up to a maximum of 20 appointments. The data comes from all [place] treatment facilities. Appointment Date/Time Appointment Type Appointme nt Facility Name Nov 12, 2023 03:00 PM AMBULATORY - REHAB MEDICIN E [facility] Nov 13, 2023 03:00 PM [facility] [place] [facility] Nov 14, 2023 03:00 PM [place]ORY - [place]ONE [place] [facility] Nov 15, 2023 03:00 PM [facility]ORY - [place]ONE [place] [facility] Nov 18, 2023 03:00 PM [place]ORY - [place]ONE [place] [facility] Nov 19, 2023 01:00 PM AM[facility]UL[facility]ORY - NONE [place] [facility] Nov 19, 2023 03:00 PM [place]ORY - [place]ONE [place] [facility] Nov 20, 2023 12:00 PM [place] [facility] Nov 20, 2023 03:00 PM [place]UL[place]ORY [place] NONE [place] [facility] Nov 22, 2023 03:00 PM [place]ORY [place]ONE [place] [facility] Nov 25, 2023 03:00 PM [place]ORY - [place]ONE [place] [facility] Nov 26, 2023 01:00 PM [place]ORY - [place]ONE [place] [facility] Nov 26, 2023 03:00 PM AMBULATORY - REHAB MEDICIN E [facility] Dec 03, 2023 01:00 PM [place]UL[place]ORY - NONE [place] [facility] Dec 04, 2023 12:00 PM [place] [facility] Dec 10, 2023 01:00 PM [place]UL[place]ORY - NONE [place] [facility] Dec 13, 2023 09:30 AM [place]IC[place] [facility] Dec 17, 2023 01:00 PM [place]ORY - [place]ONE [place] [facility] Dec 24, 2023 01:00 PM [facility]ORY - [place]ONE [place] [facility] Dec 25, 2023 12:00 PM [facility] Active, Pending, and Scheduled Orders This section includes a listing of several types of active, pending, and scheduled orders, including clinic medications orders, diagnostic test orders, procedure orders and consult orders; where the start date of the order is 45 days before the date of the Encounter or 45 days after the date of theEncounter. The data comes from all [place] treatment facilities. Test Date/Time Test Type Test Details Facility Name Oct 23, 2023 02:47 PM Consult Order COMMUNITY CARE-ECHOCARDIOGRAPHY Cons Public Affairs Director's Choice [facility] Dec 25, 2023 12:00 AM Laboratory - Chemi stry Order URINALYSIS URINE WC [facility] Social History: Smoking Status (Most current) and Tobacco Use (All prior to encounter date) This section includes the most current, and the historical, smoking and tobacco- related health factors from the [facility] where the Encounter took place. Current Smoking Status This section includes the most current smoking, or tobacco-related health factor, from the [facility] where the Encounter took place. Date/Time Current Smoking Status Comment Iva ity October 11, 2023 01:00 PM VA-TOBACCO FORMER USER [facility] Tobacco Use History This section includes a history of the smoking, or tobacco-related health factors, that were collected on or before the date of the Encounter. The data comes from the [facility] where the Encounter took place. Date/Time Smoking Status/Tobacco Use Comment F acility October 11, 2023 01:00 PM VA-TOBACCO QUIT [address] [facility] Dec 24, 2022 09:00 AM VA-TOBACCO FORMER USER [facility] Dec 24, 2022 09:00 AM VA-TOBACCO QUIT [address] [facility] Encounter Notes: All associated encounter notes This section contains the clinical notes associated to the Encounter. Date/Time Encounter Note(s) Provider Source Nov 13, 2023 10:43 AM ADDENDUM: LOCAL TITLE: Addendum STANDARD TITLE: ADDENDUM DATE OF NOTE: NOV 13, 2023@10:43:14 ENTRY DATE: NOV 13, 2023@10:43:15 AUTHOR: RIGO RUSSO EXP COSIGNER: URGENCY: STATUS: COMPLETED please see original [facility] consult placed by me in 10/11/23 asking for routine echo. This was replaced in October and erroneously now states stress echo and routine echo. Appreciate [facility] staff correcting error and communicating directly with vendor. /william/ RIGO RUSSO MD/PHD PHYSICIAN Signed: 11/13/2023 10:44 Receipt Acknowledged By: 11/14/2023 10:59 /william/ KEKE JACKSON RN REFERRAL SOCIAL SCIENCE MANAGER --- Original Document --- 11/11/23 COMMUNITY CARE-CARE COORDINATION PLAN NOTE: Provider contact: Provider Sienna [phone] [facility] radiology calling in regards to Echocardiogram order/auth for care in the community. Per caller they need to know if this order should be STRESS Echo or Routine Echo, but can't be both. Routine Echo per caller was last year at [facility]. Consult: [id number] Auth [id number] [facility] [address] [place] [address] PH: [phone] FX: [phone] Alerting RN CC Keke Stephen /william/ EMILIE HOLLIS Signed: 11/11/2023 14:24 Receipt Acknowledged By: 11/12/2023 09:10 /key JACKSON SMART GRID ENGINEER SOCIAL SCIENCE MANAGER 11/12/2023 ADDENDUM STATUS: COMPLETED Alerting ordering provider to please fax clarification to vendor, s fax number listed above. /william/ KEKE JACKSON SMART GRID ENGINEER SOCIAL SCIENCE MANAGER Signed: 11/12/2023 09:11 Receipt Acknowledged By: 11/13/2023 10:42 /william/ RIGO RUSSO MD/PHD PHYSICIAN 11/13/2023 08:25 /es/ DIEGO SINGLETON,RN REGISTERED NURSE 11/14/2023 ADDENDUM STATUS: UNSIGNED You may not VIEW this UNSIGNED Addendum. RIGO RUSSO [facility] Nov 12, 2023 09:10 AM ADDENDUM: LOCAL TITLE: Addendum STANDARD TITLE: ADDENDUM DATE OF NOTE: NOV 12, 2023@09:10:18 ENTRY DATE: NOV 12, 2023@09:10:19 AUTHOR: KEKE MCWILLIAMS EXP COSIGNER: URGENCY: STATUS: COMPLETED Alerting ordering provider to please fax clarification to vendor, s fax number listed above. /key JACKSON SMART GRID ENGINEER SOCIAL SCIENCE MANAGER Signed: 11/12/2023 09:11 Receipt Acknowledged By: 11/13/2023 10:42 /key RUSSO MD/PHD PHYSICIAN 11/13/2023 08:25 /william/ DIEGO SINGLETON RN REGISTERED NURSE --- Original Document --- 11/11/23 COMMUNITY CARE-CARE COORDINATION PLAN NOTE: Provider contact: Provider Sienna [phone] [facility] radiology calling in regards to Echocardiogram order/auth for care in the community. Per caller they need to know if this order should be STRESS Echo or Routine Echo, but can't be both. Routine Echo per caller was last year at [facility]. Consult: [id number] Auth [id number] [facility] [address] [place] [address] PH: [phone] FX: [phone] Alerting RN CC Keke Stephen /william/ EMILIE HENDRICKS AMSA Signed: 11/11/2023 14:24 Receipt Acknowledged By: 11/12/2023 09:10 /william/ KEKE JACKSON RN REFERRAL SOCIAL SCIENCE MANAGER 11/13/2023 ADDENDUM STATUS: UNSIGNED You may not VIEW this UNSIGNED Addendum. KEKE MCWILLIAMS [facility] Nov 11, 2023 02:21 PM NONVA NOTE: LOCAL TITLE: COMMUNITY CARE-CARE COORDINATION PLAN NOTE STANDARD TITLE: NONVA NOTE DATE OF NOTE: NOV 11, 2023@14:21 ENTRY DATE: NOV 11, 2023@14:21:16 AUTHOR: EMILIE HENDRICKS EXP COSIGNER: URGENCY: STATUS: COMPLETED COMMUNITY CARE-CARE COORDINATION PLAN NOTE Has ADDENDA Provider contact: Provider Sienna [phone] [facility] radiology calling in regards to Echocardiogram order/auth for care in the community. Per caller they need to know if this order should be STRESS Echo or Routine Echo, but can't be both. Routine Echo per caller was last year at [facility]. [id number] [id number] [address] [place] [address] PH: [phone] FX: [phone] Alerting RN EZ Stephen /william/ EMILIE HOLLIS Signed: 11/11/2023 14:24 Receipt Acknowledged By: 11/12/2023 09:10 /key JACKSON SMART GRID ENGINEER SOCIAL SCIENCE MANAGER 11/12/2023 ADDENDUM STATUS: COMPLETED Alerting ordering provider to please fax clarification to vendor, s fax number listed above. /key JACKSON SMART GRID ENGINEER SOCIAL SCIENCE MANAGER Signed: 11/12/2023 09:11 Receipt Acknowledged By: 11/13/2023 10:42 /william/ RIGO RUSSO MD/PHD PHYSICIAN 11/13/2023 08:25 /william/ DIEGO SINGLETON,LARRY REGISTERED NURSE 11/13/2023 ADDENDUM STATUS: COMPLETED please see original [facility] consult placed by ri in 10/11/23 asking for routine echo. This was replaced in October and erroneously now states stress echo and routine echo. Appreciate [facility] staff correcting error and communicating directly with vendor. /william/ RIGO RUSSO MD/PHD PHYSICIAN Signed: 11/13/2023 10:44 Receipt Acknowledged By: 11/14/2023 10:59 /key JACKSON SMART GRID ENGINEER SOCIAL SCIENCE MANAGER 11/14/2023 ADDENDUM STATUS: COMPLETED Informed vendor that consult is for a Routine Echo. /william/ KEKE JACKSON SMART GRID ENGINEER SOCIAL SCIENCE MANAGER Signed: 11/14/2023 11:[address] [facility]
== END 2023-11-18 09:59 | disposition home or self-care (01) ==
LOC: RAD 09:59
PROVIDERS: PCP Internal Medicine; Visit Provider Internal Medicine
DX: I71.20 Thoracic aortic aneurysm, without rupture, unspecified (principal)
CPT/HCPCS: 93306